=== PATIENT | male | born 1950 | race Caucasian/White ===

== ENCOUNTER 2020-04-27 01:29 | Outpatient (CLI) | payer MEDICARE, SELFPAY ==
[2020-04-27 16:17] LABS: SARS-CoV-2 RNA PCR Negative
== END 2020-04-27 01:30 | disposition home or self-care (01) ==
LOC: ANHCOVIDDT 01:29
PROVIDERS: PCP Internal Medicine; Visit Provider Internal Medicine Gastroenterology
DX: Z01.812 Encounter for preprocedural laboratory examination (principal); Z11.59 Encounter for screening for other viral diseases
CPT/HCPCS: 87635; C9803; U0003

== ENCOUNTER 2020-04-29 01:13 | Day surgery (SDC) | payer MEDICARE, SELFPAY ==
[2020-04-20 15:13] VITALS: BMI 22.7
[2020-04-29 07:17] VITALS: BP 118/73; PULSE 73; RESP 20; TEMP 36.6; O2SAT 99
[2020-04-29] MEDS: LACTATED RINGERS 1,000 ML 150 ML IV CONT (07:30)
--- NOTE | 2020-04-29 08:26 | P.CONGI_ITS ---
Assessment and Plan Assessment and plan (1) Epigastric abdominal pain: Code(s): R10.13 - Epigastric pain Status: Acute Assessment and Plan: Patient with epigastric pain. Has been poorly responsive to outpatient management. Plan is for EGD today to assess more thoroughly. Continue outpatient Pepcid until this can be accomplished. GI Consult Note Consult date/time: 04/29/20 08:26 HPI: Robbie Cervantes is a 70 year old male seen in evaluation at the request of Dr. Julio César Avilez. Patient reports epigastric pain for at least the last 1- 1/2 months. He recently has tried Pepcid with some improvement of symptoms. He describes pain is aching. It somewhat improves after eating. Denies any weight loss or bleeding. Patient presents today for endoscopic evaluation of pain. Past medical history is significant for abdominal aortic aneurysm repair. Family history is noncontributory. Review of Systems Review of Systems: All systems reviewed & are unremarkable except as noted in HPI and below PMFSH Past Medical History Medical History (Updated 04/29/20 @ 08:35 by Obie Mejia MD) Hyperlipidemia Hypertension Peripheral vascular disease Meds Home Medications and Allergies Home Medications Medication Instructions Recorded Confirmed Type aspirin [Adult Low Dose Aspirin] 81 mg PO DAILY 04/20/20 04/20/20 History atorvastatin 40 mg PO DAILY 04/20/20 04/20/20 History lisinopril-hydrochlorothiazide 1 tablet PO DAILY 04/20/20 04/20/20 History Allergies Allergy/AdvReac Type Severity Reaction Status Date / Time No Known Allergies Allergy Unknown Verified 04/29/20 07:16 Vital Signs Vital Signs - 24 hr 04/29/20 07:17 Temperature 97.8 F Pulse Rate 73 Respiratory Rate 20 Blood Pressure 118/73 Pulse Oximetry 99 Exam Narrative: Exam Narrative: Physical exam reveals patient to be alert. Vital signs stable. HEENT exam unremarkable. Lungs are clear to auscultation and to percussion. Heart is without murmur or extra sounds. Abdominal exam bowel sounds are present soft nontender with no organomegaly. Digital external rectal exam normal.
--- NOTE | 2020-04-29 08:28 | P.PNAN_ITS ---
Anes - Initial Pre Proc Eval Procedure: Operation Date: 04/29/20 08:30 Proposed Procedures p Esophagogastroduodenoscopy - Obie Mejia MD Date/Time: 04/29/20 08:28 Surgeon: Obie Mejia MD Pre Op Diagnosis: Epigastric Pain Patient Data Age: 70 Gender: M Height: 5 ft 10 in Weight: 70.9 kg Last Vital Signs Temp 97.8 F 04/29/20 07:17 Pulse 73 04/29/20 07:17 Resp 20 04/29/20 07:17 BP 118/73 04/29/20 07:17 Pulse Ox 99 04/29/20 07:17 Allergies Allergy/AdvReac Type Severity Reaction Status Date / Time No Known Allergies Allergy Unknown Verified 04/29/20 07:16 Home Medications Medication Instructions Recorded Confirmed Type aspirin [Adult Low Dose Aspirin] 81 mg PO DAILY 04/20/20 04/20/20 History atorvastatin 40 mg PO DAILY 04/20/20 04/20/20 History lisinopril-hydrochlorothiazide 1 tablet PO DAILY 04/20/20 04/20/20 History Patient hx anesthesia problems: none Family hx anesthesia problems: none [facility] Past Medical History Medical History (Updated 04/29/20 @ 08:28 by Mc Myers MD) Hyperlipidemia Hypertension Peripheral vascular disease Anes - Eval Final PreProcedure Day of Procedure 04/29/20 08:28 Patient weight: normal Heart: regular rate and rhythm Lungs: clear to auscultation Airway: Mallampati scale class II Neurological: alert and oriented Last oral intake: >/= 8 hours ASA classification: III Emergent: no Anesthetic plan: proceed Anesthesia type and monitoring: general GIVS and standard monitoring Informed Consent: The patient's anesthetic plan and its attendant risks and benefits were discussed with the patient/family/POA. Questions were solicited and answers provided to the satisfaction of the patient/family/POA.
[2020-04-29] MEDS: BENZOCAINE (*SP) 60 ML SPRAY CAN (HURRICAINE) 1 SPRAY MUCOUS MEM (08:37)
[2020-04-29] MEDS: SIMETHICONE ORAL SUSPENSION 20 MG/0.3 ML 30 ML BOTTLE 0.6 ML IRRIGATION (08:39)
[2020-04-29 08:45] VITALS: BP 106/62; PULSE 76; RESP 17; O2SAT 97
[2020-04-29 08:55] VITALS: BP 104/62; PULSE 68; RESP 19; O2SAT 96
[2020-04-29 09:05] VITALS: BP 125/64; PULSE 65; RESP 15; O2SAT 96
--- NOTE | 2020-04-29 09:24 | SUR.PHASEII ---
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
== END 2020-04-29 09:31 | disposition home or self-care (01) ==
PROVIDERS: PCP Internal Medicine; Visit Provider Internal Medicine Gastroenterology
PROC: 0DJ08ZZ Inspection of Upper Intestinal Tract, Via Natural or Artificial Opening Endoscopic (ICD-10-PCS; CPT 43235; principal; 2020-04-29 08:30)
DX: K29.60 Other gastritis without bleeding (principal); Z98.84 Bariatric surgery status; I10 Essential (primary) hypertension; E78.5 Hyperlipidemia, unspecified; I73.9 Peripheral vascular disease, unspecified; Z79.82 Long term (current) use of aspirin
CPT/HCPCS: 43239; 87635; 88305; 88342; C9803; J7120; U0003

== ENCOUNTER 2023-09-14 14:20 | Emergency (ER) | payer MEDICARE, SELFPAY ==
--- NOTE | ~2023-09-14 | XR_ITS ---
EXAMINATION: XR chest 2V Exam Date/Time: 09/14/2023 17:50 [employer] HISTORY: palpitations, fatigue Comparison: 04/24/2006. RESULT: Lines, tubes, and devices: Surgical clips over the right neck. Interbody devices in the lower cervic al spine. Lungs and pleura: Clear. Cardiomediastinal silhouette: Stable. Other: No acute osseous or upper abdominal finding. IMPRESSION: No acute cardiopulmonary process. Reviewed, dictated and finalized at location [facility]
[2023-09-14 14:25] VITALS: BP 145/74; PULSE 127; RESP 16; TEMP 36.6; O2SAT 99
--- NOTE | 2023-09-14 14:25 | ECG_ITS ---
Measurements Intervals [place] Rate: 124 P: 57 [place]: 176 QRS: 26 QRSD: 79 T: 77 QT: 333 QTc: 479 Interpretive Statements SINUS TACHYCARDIA LOW-VOLTAGE MINIMAL ST DEPRESSION [0.025+ mV ST DEPRESSION] ABNORMAL RHYTHM ECG NO PREVIOUS ECG AVAILABLE FOR COMPARISON Electronically Signed On 09-14-2023 18:05:54 ASSESSMENT CONSULTANT by Julio César Eason M.D.
[2023-09-14 15:49] VITALS: PULSE 142
[2023-09-14 16:01] VITALS: BP 142/70; PULSE 114; RESP 11; O2SAT 100
[2023-09-14] MEDS: SODIUM CHLORIDE 0.9% IV 1,000 ML 999 ML IV CONT (16:24)
[2023-09-14 16:35] LABS: Basophils Percent Auto 0.3 % (0.2-1.2); Eosinophils Percent Auto 0.2 % (0-4.4); Hematocrit 34.1 % (42.0-52.0); Hemoglobin 11.8 g/dL (14.0-18.0); Immature Granulocyte Absolute 0.09 K/mm3 (0.00-0.031); Immature Granulocyte Percent A 0.9 % (0-0.5); Lymphocytes Absolute Auto 1.09 K/mm3 (0.9-3.2); Lymphocytes Percent Auto 10.8 % (18.3-44.2); Mean Corpuscular HGB Conc 34.6 g/dl (32-36); Mean Corpuscular Hemoglobin 34.7 pg (26-34); Mean Corpuscular Volume 100.3 fl (80-100); Mean Platelet Volume 10.5 fl (7.4-10.4); Monocytes Absolute Auto 1.1 K/mm3 (0.1-0.6); Monocytes Percent Auto 10.8 % (2.6-8.5); Neutrophils Absolute Auto 7.8 K/mm3 (1.3-6.7); Platelet Count Result 162 k/mm3 (150-375); Red Cell Distribution Width 15.8 % (11.5-14.5); White Blood Count 10.1 K/mm3 (4.5-10.0)
[2023-09-14 16:47] LABS: INR 1.1; Prothrombin Time 14.9 Seconds (11.1-14.7)
[2023-09-14 16:48] LABS: Partial Thromboplastin Time 40.3 SECONDS (22.3-36.8)
[2023-09-14 17:13] LABS: Alanine Aminotransferase 44 U/L (6-50); Albumin Level 4.1 g/dL (3.5-5.1); Alkaline Phosphatase 208 U/L (38-126); Anion Gap 16 mmol/L (8-16); Aspartate Amino Transferase 94 U/L (17-59); Bilirubin,Total 4.1 mg/dL (0.2-1.3); Blood Urea Nitrogen 11 mg/dL (9-20); Calcium 9.1 mg/dL (8.4-10.2); Carbon Dioxide 27 mmol/L (22-30); Chloride 83 mmol/L (98-107); Estimated CRCL calculation 66 ml/min; Estimated Glomerular Filt Rate > 60; Glucose 226 mg/dL (65-110); Magnesium 1.9 mg/dL (1.6-2.3); Potassium 3.2 mmol/L (3.4-5.0); Sodium 126 mmol/L (137-145)
--- NOTE | 2023-09-14 17:45 | ED.ARRPALP ---
HPI - Arrhythmia/Palpitations General Chief Complaint: Arrhythmia/Palpitations Stated Complaint: elevated heart rate Time Seen by Provider: 09/14/23 15:47 History of Present Illness HPI narrative: Patient is a 73-year-old male who presents to the ER with an elevated heart rate. Reports that was in the 140s. He was at his hepatology follow-up appointment today when it was noticed. They estimate go to the ER to be evaluated and he chose to leave [facility] come here. He is having no dizziness. No chest pain or chest pressure. No new shortness of breath. He has been on diuretics for the last month to decrease the fluid in his legs and abdomen. He has had to have multiple paracentesis procedures to remove fluid. He takes 40 of Lasix daily and 100 mg of spironolactone daily. Related Data Home Medications Medication Instructions Recorded Confirmed finasteride 5 mg tablet 5 mg PO DAILY 09/14/23 09/14/23 furosemide 20 mg tablet 20 mg PO DAILY 09/14/23 09/14/23 lactulose 10 gram/15 mL oral 10 ml PO DAILY 09/14/23 09/14/23 solution magnesium oxide 400 mg PO DAILY 09/14/23 09/14/23 spironolactone 100 mg tablet 100 mg PO DAILY 09/14/23 09/14/23 Allergies Allergy/AdvReac Type Severity Reaction Status Date / Time No Known Allergies Allergy Unknown Verified 09/14/23 15:50 Review of Systems Review of Systems: All systems reviewed & are unremarkable except as noted in HPI and below Constitutional: Constitutional: Reports no additional constitutional complaints ENT: Reports system reviewed and no additional complaints, except as documented Cardiovascular: Cardiovascular: Denies chest pain, Reports rapid heart rate and Denies radiating jaw, neck or arm pain Respiratory: Respiratory: Reports no additional respiratory complaints Gastrointestinal: Gastrointestinal: Reports no additional gastrointestinal complaints Musculoskeletal: Musculoskeletal: Reports no additional musculoskeletal complaints PMFSH Past Medical History Medical History (Updated 09/14/23 @ 19:37 by Rambo Steinberg MD) Cirrhosis of liver Hyperlipidemia Hypertension Peripheral vascular disease Surgical History Surgical History (Updated 09/14/23 @ 17:47 by Rambo Steinberg MD) No pertinent past surgical history Exam Narrative: GENERAL: Well-appearing, well-nourished, and in no acute distress. HEAD: Normocephalic, atraumatic. ENT: Mucous membranes moist. CHEST: Clear to auscultation. No respiratory distress. HEART: Tachycardic irregular. Normal peripheral pulses. ABDOMEN: Soft, nontender, nondistended. EXTREMITIES: Normal range of motion. No edema. SKIN: Warm, dry, no rash. NEURO: Alert and oriented x3. PSYCH: Normal mood and affect. Course Course Emergency Course: Patient's tachycardia improved with IV fluid. Suspect he is dry from his increase in diuretics. Recommend he withhold his diuretics tomorrow given low potassium and in sodium. Reports his last potassium was 3.7 and last sodium was 133 on 09/01/2023. His last total bilirubin was 3.8. Family will also contact his liver care team through [facility]. Vital Signs Vital signs: Vital Signs Temperature 98 F 09/14/23 14:25 Pulse Rate 127 H 09/14/23 14:25 Respiratory Rate 16 09/14/23 14:25 Blood Pressure 145/74 H 09/14/23 14:25 Pulse Oximetry 99 09/14/23 14:25 Oxygen Delivery Room Air 09/14/23 14:25 Temperature 98 F 09/14/23 14:25 Pulse Rate 104 H 09/14/23 19:42 Respiratory Rate 16 09/14/23 19:42 Blood Pressure 124/66 09/14/23 19:42 Pulse Oximetry 100 09/14/23 19:42 Oxygen Delivery Room Air 09/14/23 14:25 MDM - Arrhythmia/Palpitations Lab Data 09/14/23 16:25 09/14/23 16:25 Labs: Lab Results 09/14/23 Range/Units 16:25 WBC 10.1 H (4.5-10.0) K/mm3 RBC 3.40 L (4.6-6.20) M/mm3 Hgb 11.8 L (14.0-18.0) g/dL Hct 34.1 L (42.0-52.0) % MCV 100.3 H (80-100) fl MCH
[2023-09-14 19:27] VITALS: BP 132/72; PULSE 104; RESP 16; O2SAT 100
[2023-09-14 19:42] VITALS: BP 124/66; PULSE 104; RESP 16; O2SAT 100
== END 2023-09-14 19:43 | disposition home or self-care (01) ==
PROVIDERS: Emergency Provider Emergency Medicine; PCP Internal Medicine
DX: R00.0 Tachycardia, unspecified (principal); I10 Essential (primary) hypertension; I73.9 Peripheral vascular disease, unspecified; E78.5 Hyperlipidemia, unspecified; K74.60 Unspecified cirrhosis of liver
CPT/HCPCS: 36415; 71046; 80053; 83735; 85025; 85610; 85730; 93005; 96360; 99283; J7030

== ENCOUNTER 2024-07-30 18:56 | Inpatient (IN) | payer MEDICARE, OTHER, SELFPAY ==
[2024-07-30] VITALS (28 sets, daily range): BP systolic 95–122; BP diastolic 50–95; PULSE 71–83; RESP 8–17; TEMP 36.4–36.7; O2SAT 100
--- NOTE | ~2024-07-30 | XR_ITS ---
HISTORY: post reduction COMPARISON: Previous imaging performed approximately 20 minutes earlier TECHNIQUE: 2 views of the right ankle were performed FINDINGS: Post reduction imaging demonstrate a trimalleolar fracture with markedly improved alignment post redu ction. Overlying casting material is present. IMPRESSION: Improved alignment post reduction, as detailed. Reviewed, dictated and finalized at location A. NOGRAPH OPERATOR
--- NOTE | ~2024-07-30 | XR_ITS ---
HISTORY: injury COMPARISON: None TECHNIQUE: 2 views of the right ankle were performed FINDINGS: Acute comminuted complex fracture/dislocation of the distal tibia and fibula with anterior and medial dislocation of multiple fracture fragments. Multiple surgical clips identified along the medial margin of the soft tissues. IMPRESSION: As above. Reviewed, dictated and finalized at location A. ALT PATCHER IMPRESSION: As above.
--- NOTE | ~2024-07-30 | CT_ITS ---
Clinical indication:Ankle fracture COMPARISON:Examination is compared with multiple plain film evaluations of the right ankle TECHNIQUE: Multiple contiguous axial images of the right ankle were performed without the administrat ion of intravenous contrast. DLP: 457 mGy-cm FINDINGS: Acute fractures involving both the medial malleolus of the distal tibia as well as the lateral margin of the distal tibia. Acute fracture is also present within the distal fibula (the lateral malleolus). In addition, acute fracture of the posterior margin of the distal tibia is present consistent with a trimalleolar fracture. A heterogeneous appearance of the bone mineralization is also present for which clinical correlation is needed as to possible systemic association. No additional fractures are appreciated. Significant soft tissue swelling is also noted. IMPRESSION: Trimalleolar fracture of the right ankle, as detailed above. Reviewed, dictated and finalized at location A. L CLEANER HAND
--- NOTE | ~2024-07-30 | XR_ITS ---
EXAMINATION: XR surgery orthopedic DATE: 08/01/2024 13:12 INDICATION: Trimalleolar fracture of right ankle. TECHNIQUE: 7 intraoperative fluoroscopic views of right ankle were obtained. I wasn't present. Fluoro scopy exposure time was 1 minute 32 seconds. COMPARISON: CT 07/30/2024 FINDINGS: There is a fracture of medial malleolus in anatomic alignment status post open reduction in ternal fixation with 2 lag screws. There is a fracture of distal fibula in near-anatomic alignment st atus post open reduction internal fixation with retrograde intramedullary amber and multiple screws inc luding a syndesmotic screw. There is a fracture of posterior malleolus with 2 mm step-off at the phyllis cular surface. IMPRESSION: 1. Trimalleolar ankle fracture status post open reduction internal fixation. Reviewed, dictated and finalized at location A. TRIC ORGAN INSPECTOR AND REPAIRER
--- NOTE | ~2024-07-30 | XR_ITS ---
CHEST RADIOGRAPH CLINICAL HISTORY: pre-op . COMPARISON: 09/14/2023 TECHNIQUE: Single portable view of the chest. FINDINGS The cardiomediastinal silhouette is unremarkable. The lungs are clear. Visualized osseous structures and soft tissues are unremarkable. IMPRESSION: No focal infiltrate or effusion. Reviewed, dictated and finalized at location A. LE TACKER
[2024-07-30] MEDS: fentaNYL CITRATE INJ (*CRX) 100 MCG/2 ML VIAL 50 MCG IV PUSH (19:06)
[2024-07-30] MEDS: PROPOFOL IV EMULSION 200 MG/20 ML VIAL 60 MG IV PUSH (19:13)
[2024-07-30] MEDS: SODIUM CHLORIDE 0.9% IV 1,000 ML 1000 ML (19:15)
--- NOTE | 2024-07-30 19:21 | ED_ITS ---
HPI - General Adult General Chief complaint: Extremity Injury, Lower Stated complaint: slip in yard, obvious deformity of ankle History of Present Illness HPI narrative: 74-year-old male presenting to the emergency department for evaluation for right ankle injury. Patient states he was walking in the yd when he rolled his right ankle resulting in a deformity. Patient denies striking his head denies loss consciousness. Patient's only complaint is right ankle pain. Patient does have a deformity of the right ankle with tenting of the medial malleolus. No break in the skin. Related Data Home Medications Medication Instructions Recorded Confirmed finasteride 5 mg tablet 5 mg PO DAILY 09/14/23 07/30/24 furosemide 20 mg tablet 40 mg PO DAILY 09/14/23 07/30/24 lactulose 10 gram/15 mL oral 10 ml PO DAILY 09/14/23 07/30/24 solution magnesium oxide 400 mg PO DAILY 09/14/23 07/30/24 spironolactone 100 mg tablet 100 mg PO DAILY 09/14/23 07/30/24 albuterol sulfate 90 mcg/actuation 2 puff inhalation PRN PRN 07/30/24 07/30/24 aerosol inhaler SOB/Wheezing cetirizine 10 mg tablet (Zyrtec) 10 mg PO HS 07/30/24 07/30/24 potassium chloride 20 mEq 40 meq PO DAILY 07/30/24 07/30/24 tablet,extended release sertraline 50 mg tablet 50 mg PO DAILY 07/30/24 07/30/24 Allergies Allergy/AdvReac Type Severity Reaction Status Date / Time No Known Allergies Allergy Unknown Verified 07/30/24 20:49 Review of Systems Review of Systems: All systems reviewed & are unremarkable except as noted in HPI and below [facility] Past Medical History Medical History (Updated 07/30/24 @ 21:37 by Bartolo Rosenthal MD) Cirrhosis of liver Hyperlipidemia Hypertension Peripheral vascular disease Surgical History Surgical History No pertinent past surgical history Exam Narrative: APPEARANCE: Uncomfortable appearing HEAD: normocephalic, atraumatic. EYES: PERRLA/EOMI, conjunctivae clear. NOSE: Normal no drainage EARS:TMS clear with good light reflex. THROAT: Pharynx clear, no exudate. NECK: Supple. No adenopathy, no masses. RESPIRATORY: Airway patent, respirations nonlabored. Clear to auscultation bilaterally, no rales, rhonchi, wheezing. CARDIOVASCULAR: Regular rate and rhythm without murmurs rubs or gallops. ABDOMINAL: Soft, nontender, nondistended, normal bowel sounds MUSCULOSKELETAL: Right ankle deformity with pulses intact NEURO: Alert. Cranial nerves II through XII intact. Good gait. Good coordination Course Vital Signs Vital signs: Vital Signs Temperature 97.5 F L 07/30/24 18:57 Pulse Rate 77 07/30/24 18:57 Respiratory Rate 17 07/30/24 18:57 Blood Pressure 105/54 L 07/30/24 18:57 Pulse Oximetry 100 07/30/24 18:57 Oxygen Delivery Room Air 07/30/24 18:57 Temperature 98.1 F 07/30/24 19:28 Pulse Rate 81 07/30/24 21:26 Respiratory Rate 14 07/30/24 21:26 Blood Pressure 118/54 L 07/30/24 20:41 Pulse Oximetry 100 07/30/24 21:26 Oxygen Delivery Nasal Cannula 07/30/24 19:28 Oxygen Flow Rate 3 07/30/24 19:28 Procedures Orthopedic Joint Reduction Joint #1: Orthopedic Joint Reduction Time: 19:24 Time Out Performed: Yes Side: right Joint Reduction Location: ankle Analgesia: procedural sedation Pre-Procedure Neuro Vascular Exam: normal Shoulder Technique Used (if applicable): traction/counter-traction Technique used: traction/counter-traction Post-reduction neuro exam: intact Post-reduction vascular: intact Post Reduction X-Ray Obtained: Yes Post Reduction X-Ray Results: reduced Splint Applied: Yes Patient Tolerated Procedure: well and no complications Procedural Sedation Procedural Sedation #1: Procedural Sedation Time: 19:23 Presedation Evaluation: APPEARANCE: Well appearing, no pain, no distress, well-nourished. HEAD: normocephalic, atraumatic. EYES: PERRLA/EOMI, conjunctivae clear. NOSE: Normal no drainage EARS:TMS clear with good light reflex. THROAT: Pharynx clear, no exudate. NECK: Supple. No adenopathy, no masses. RESPIRATORY: Airway patent, respirations nonlabored. Clear to auscultation bilaterally, no rales, rhonchi, wheezing. CARDIOVASCULAR: Regular rate and rhythm without murmurs rubs or gallops. ABDOMINAL: Soft, nontender, nondistended, normal bowel sounds MUSCULOSKELETAL: Right ankle deformity Provider Performed: sedation and procedure Informed Consent Obtained: yes Equipment in Room: bag and mask, capnography, quality assurance monitor final, crash cart, oxygen, pulse oximeter and suction Plan for Sedation: moderate sedation ASA Class: II Mallampati Classification: class I NPO Status: last solid food (hours ago) Explanation to Patient/Family: Risk/Benefits/Alternatives Pt. Educated on Procedural Sedation: Yes Re-evaluated immediately prior: Yes Preparation: quality assurance monitor final applied, pulse oximeter, capnometry used, supplemental O2 applied, suction/airway equipment at bedside and IV secured Fentanyl: IV Fentanyl dose (mcg): 50 IV Propofol dose (mg): 60 Patient Tolerated Procedure: well and no complications Complications: hypoxia Interventions: oxygen applied Total Sedation Time (min): 10 Medical Decision Making MDM Narrative Medical decision making narrative: [age] old male presents emergency department for evaluation for right ankle pain after having a fall. Patient did have a significant dislocation of the right ankle this was reduced. Patient does not have a trimalleolar fracture. Patient's ankle was splinted. Patient would not be a good candidate for discharge to home. I discussed the case with Orthopedics and Orthopedics was consulted. Discussed case with hospitalist patient was accepted for admission. Patient family were updated on the results of the workup plan for admission anticipated treatment plan. All questions concerns were addressed. Differential Diagnosis Differential Diagnosis: Ankle dislocation, ankle fracture, foot fracture Vital Signs Vital Signs: Vital Signs Temperature 97.5 F L 07/30/24 18:57 Pulse Rate 77 07/30/24 18:57 Respiratory Rate 17 07/30/24 18:57 Blood Pressure 105/54 L 07/30/24 18:57 Pulse Oximetry 100 07/30/24 18:57 Oxygen Delivery Room Air 07/30/24 18:57 Temperature 98.1 F 07/30/24 19:28 Pulse Rate 81 07/30/24 21:26 Respiratory Rate 14 07/30/24 21:26 Blood Pressure 118/54 L 07/30/24 20:41 Pulse Oximetry 100 07/30/24 21:26 Oxygen Delivery Nasal Cannula 07/30/24 19:28 Oxygen Flow Rate 3 07/30/24 19:28 Lab Data Lab results reviewed: Yes I reviewed the patient's lab results. 07/30/24 19:42 07/30/24 19:42 Labs: Lab Results 07/30/24 Range/Units 19:42 WBC 4.0 L (4.5-10.0) K/mm3 RBC 3.44 L (4.6-6.20) M/mm3 Hgb 11.2 L (14.0-18.0) g/dL Hct 32.4 L (42.0-52.0) % MCV 94.2 (80-100) fl MCH 32.6 (26-34) pg MCHC 34.6 (32-36) g/dl RDW 16.2 H (11.5-14.5) % Plt Count 98 L (150-375) k/mm3 MPV 10.4 (7.4-10.4) fl Immature Gran % (Auto) Not Reportable Neut % (Auto) Not Reportable Lymph % (Auto) Not Reportable [place] % (Auto) Not Reportable Eos % (Auto) Not Reportable Baso % (Auto) Not Reportable Lymph # (Auto) Not Reportable [place] # (Auto) Not Reportable Eos # (Auto) Not Reportable Baso # (Auto) Not Reportable Abs Immat Gran (auto) Not Reportable Absolute Neuts (auto) Not Reportable Absolute Nucleated RBC Not Reportable Total Counted 100 Neutrophils % (Manual) 57 (46-73) % Band Neutrophils % 2 (0-6) % Lymphocytes % (Manual) 31.0 (18-44) % Monocytes % (Manual) 8 (3-9) % Eosinophils % (Manual) 2 (0-4) % Nucleated RBC % Not Reportable Abs Neuts (Manual) 2.36 (1.3-6.7) K/mm3 Abs Lymphs (Manual) 1.24 (1.1-4.5) K/mm3 Abs Monocytes (Manual) 0.32 (0.1-0.90) K/mm3 Absolute Eos (Manual) 0.08 (0.02-0.50) K/mm3 Platelet Estimate Decreased (Adequate) % Immature Plt Fraction 6.2 (0.9-11.2) % Schistocytes None seen PT 16.3 H (11.1-14.7) Seconds INR 1.3 APTT 38.4 H (22.3-36.8) Seconds Sodium 131 L (137-145) mmol/L Potassium 3.1 L (3.4-5.0) mmol/L Chloride 87 L (98-107) mmol/L Carbon Dioxide 33 H (22-30) mmol/L Anion Gap 11 (4-12) mmol/L BUN 7 L (9-20) mg/dL Creatinine 1.00 (0.7-1.3) mg/dL Estim Creat Clear Calc 52 ml/min Estimated GFR > 60 (59 - ) Glucose 166 H (65-110) mg/dL Calcium 8.3 L (8.4-10.2) mg/dL Total Bilirubin 1.7 H (0.2-1.3) mg/dL AST 151 H (17-59) U/L ALT 44 (6-50) U/L Alkaline Phosphatase 282 H (38-126) U/L Total Protein 7.0 (6.3-8.2) g/dL Albumin 3.4 L (3.5-5.1) g/dL Ethyl Alcohol 289 (<10) mg/dL Imaging Data Radiologist's impression: Impressions Ankle X-Ray 07/30/24 20:16 IMPRESSION: As above. Ankle X-Ray 07/30/24 20:25 IMPRESSION: Improved alignment post reduction, as detailed. Chest X-Ray 07/30/24 20:27 IMPRESSION: No focal infiltrate or effusion. ECG Data EKG #1: EKG Interpretation: normal rate, sinus rhythm, no ectopy, non-specific ST changes, no ST changes, normal QT and NL axis Discharge Plan Discharge Clinical Impression: Closed trimalleolar fracture of ankle, Closed dislocation of ankle Patient Disposition: Still a Patient Condition: Serious
--- NOTE | 2024-07-30 19:27 | ECG_ITS ---
Test Date: 2024-07-30 20:39:46 Measurements Intervals [place] Rate: 74 P: 82 MA: 169 QRS: 33 QRSD: 97 T: 78 QT: 426 QTc: 474 Interpretive Statements SINUS RHYTHM BORDERLINE ST-T WAVE ABNORMALITY- HIGH LATERAL LEADS BASELINE ARTIFACT- I, II, III, AVR, AVL, AVF, V1-V6 BORDERLINE ECG No previous ECG available for comparison Electronically Signed On 07-30-2024 22:07:58 CLERK RATING by Jeffrey Saldana D.O.
[2024-07-30 19:50] LABS: Hematocrit 32.4 % (42.0-52.0); Hemoglobin 11.2 g/dL (14.0-18.0); Immature Platelet Fraction Pct 6.2 % (0.9-11.2); Mean Corpuscular HGB Conc 34.6 g/dl (32-36); Mean Corpuscular Hemoglobin 32.6 pg (26-34); Mean Corpuscular Volume 94.2 fl (80-100); Mean Platelet Volume 10.4 fl (7.4-10.4); Platelet Count Result 98 k/mm3 (150-375); Red Blood Count 3.44 M/mm3 (4.6-6.20); Red Cell Distribution Width 16.2 % (11.5-14.5)
[2024-07-30 19:58] LABS: Alanine Aminotransferase 44 U/L (6-50); Albumin Level 3.4 g/dL (3.5-5.1); Alkaline Phosphatase 282 U/L (38-126); Anion Gap 11 mmol/L (4-12); Aspartate Amino Transferase 151 U/L (17-59); Bilirubin,Total 1.7 mg/dL (0.2-1.3); Blood Urea Nitrogen 7 mg/dL (9-20); Calcium 8.3 mg/dL (8.4-10.2); Carbon Dioxide 33 mmol/L (22-30); Chloride 87 mmol/L (98-107); Estimated CRCL calculation 52 ml/min; Estimated Glomerular Filt Rate > 60; Glucose 166 mg/dL (65-110); Potassium 3.1 mmol/L (3.4-5.0); Sodium 131 mmol/L (137-145)
[2024-07-30 19:59] LABS: INR 1.3; Prothrombin Time 16.3 Seconds (11.1-14.7)
[2024-07-30 20:00] LABS: Ethanol 289 mg/dL (<10); Partial Thromboplastin Time 38.4 Seconds (22.3-36.8)
[2024-07-30 20:03] LABS: Band Neutrophils Percent 2 % (0-6); Eosinophils Absolute Manual 0.08 K/mm3 (0.02-0.50); Eosinophils Percent Manual 2 % (0-4); Lymphocytes Absolute Manual 1.24 K/mm3 (1.1-4.5); Monocytes Absolute Manual 0.32 K/mm3 (0.1-0.90); Monocytes Percent Manual 8 % (3-9); Neutrophils Absolute Manual 2.36 K/mm3 (1.3-6.7); Neutrophils Percent Manual 57 % (46-73); Platelet Estimate Decreased (Adequate); Schistocytes None Seen; Total Cells Counted 100
--- NOTE | 2024-07-30 20:44 | PM.IMHP ---
H&P: HPI History of Present Illness Date/Time: 07/30/24 20:44 Chief Complaint: Fall Narrative: This is a 74-year-old male with past medical history significant for COPD, cirrhosis of the liver, diabetes, hypertension, dyslipidemia. Patient was brought to the emergency room for evaluation due to fall unable to bear weight on the right leg, right ankle pain. Patient denies loss of consciousness. Preliminary workup was significant for ankle fracture. Patient has been admitted for further evaluation management and treatment. CHEST RADIOGRAPH CLINICAL HISTORY: pre-op . COMPARISON: 09/14/2023 TECHNIQUE: Single portable view of the chest. FINDINGS The cardiomediastinal silhouette is unremarkable. The lungs are clear. Visualized osseous structures and soft tissues are unremarkable. IMPRESSION: No focal infiltrate or effusion. HISTORY: injury COMPARISON: None TECHNIQUE: 2 views of the right ankle were performed FINDINGS: Acute comminuted complex fracture/dislocation of the distal tibia and fibula with anterior and medial dislocation of multiple fracture fragments. Multiple surgical clips identified along the medial margin of the soft tissues. IMPRESSION: As above. Review of Systems Review of Systems: fall, right ankle pain. [facility] Past Medical History Medical History (Updated 07/30/24 @ 21:51 by Sidney Patel MD) Cirrhosis of liver COPD (chronic obstructive pulmonary disease) Diabetes Hyperlipidemia Hypertension Peripheral vascular disease Surgical History Surgical History No pertinent past surgical history Social History Social History Smoking packs per day: 2 Smoking cigarettes per day: 40.0 Years smoked: 52 Smoking pack-years: 104.00 Smoking status: Former smoker Alcohol intake: former Do You Feel Safe in your Home?: Yes Lack of Transportation: No Lack of Food: Never True Current Housing: I Have Housing Concerned About Future Housing: No Difficulty Paying Gas/Electric Bills: No Difficulty Paying for Meds: No Currently Unemployed: No Education: High School Diploma/GED Difficulty w/ Childcare or Family Care: No Spiritual care concerns: No Meds Home Medications and Allergies Home Medications Medication Instructions Recorded Confirmed Type finasteride 5 mg tablet 5 mg PO DAILY 09/14/23 07/30/24 History furosemide 20 mg tablet 40 mg PO DAILY 09/14/23 07/30/24 History lactulose 10 gram/15 mL oral 30 ml PO DAILY 09/14/23 07/30/24 History solution magnesium oxide 400 mg PO DAILY 09/14/23 07/30/24 History spironolactone 100 mg tablet 100 mg PO DAILY 09/14/23 07/30/24 History albuterol sulfate 90 mcg/actuation 2 puff inhalation PRN PRN 07/30/24 07/30/24 History aerosol inhaler SOB/Wheezing cetirizine 10 mg tablet (Zyrtec) 10 mg PO HS 07/30/24 07/30/24 History potassium chloride 20 mEq 40 meq PO DAILY 07/30/24 07/30/24 History tablet,extended release sertraline 50 mg tablet 50 mg PO DAILY 07/30/24 07/30/24 History Allergies Allergy/AdvReac Type Severity Reaction Status Date / Time No Known Allergies Allergy Unknown Verified 07/30/24 20:49 Vital Signs Vital Signs - 24 hr 07/30/24 18:57 07/30/24 18:59 07/30/24 19:16 Temperature 97.5 F L 97.5 F L Pulse Rate 77 Pulse Rate [Apical] Respiratory Rate 17 16 Blood Pressure 105/54 L Blood Pressure [Left Arm] 101/57 L Blood Pressure [Right Arm] Pulse Oximetry 100 100 100 Oxygen Delivery Room Air Nasal Cannula Nasal Cannula Oxygen Flow Rate 3 3 07/30/24 19:13 07/30/24 19:20 07/30/24 19:25 Temperature 97.5 F L 97.5 F L 98.1 F Pulse Rate Pulse Rate [Apical] 75 71 79 Respiratory Rate 16 11 L 15 Blood Pressure Blood Pressure [Left Arm] 95/54 L Blood Pressure [Right Arm] 105/95 H 102/55 L Pulse Oximetry 100 100 100 Oxygen Delivery Room Air Nasal Cannula Nasal Cannula Oxygen Flow Rate 3 3 07/30/24 19:28 07/30/24 19:06 07/30/24 19:12 Temperature 98.1 F Pulse Rate 83 78 Pulse Rate [Apical] 74 Respiratory Rate 13 12 12 Blood Pressure 99/69 L Blood Pressure [Left Arm] Blood Pressure [Right Arm] 102/57 L Pulse Oximetry 100 100 100 Oxygen Delivery Nasal Cannula Oxygen Flow Rate 3 07/30/24 19:15 07/30/24 19:24 07/30/24 19:26 Temperature Pulse Rate 74 76 76 Pulse Rate [Apical] Respiratory Rate 14 13 16 Blood Pressure 102/55 L 95/54 L Blood Pressure [Left Arm] Blood Pressure [Right Arm] Pulse Oximetry 100 100 100 Oxygen Delivery Oxygen Flow Rate 07/30/24 19:30 07/30/24 19:31 07/30/24 19:41 Temperature Pulse Rate 76 72 74 Pulse Rate [Apical] Respiratory Rate 14 13 13 Blood Pressure 102/57 L 108/55 L Blood Pressure [Left Arm] Blood Pressure [Right Arm] Pulse Oximetry 100 100 100 Oxygen Delivery Oxygen Flow Rate Exam Narrative: Patient is laying in a stretcher Const: General: comfortable, no acute distress, well developed, alert, awake and average body habitus Nutritional Appearance: average body habitus Orientation/consciousness: patient oriented x3 HENMT: Head: normal to inspection, normocephalic and atraumatic Ears: hearing grossly normal bilaterally Face/Nose/Sinus: normal facial exam Face and sinus: normal facial exam Eyes: General: appearance normal, both eyes and all related structures Pupils: Equal, round and reactive pupils present EOM: EOMs intact bilaterally Neck: Neck: full ROM, no lymphadenopathy and no JVD Thyroid: thyroid normal Lymphatic: no lymphadenopathy noted Resp: Effort & Inspection: normal respiratory effort and able to speak in complete sentences Auscultation: clear to auscultation bilaterally Cardio: Jugular venous distension: no JVD Rate: regular rate Rhythm: regular rhythm Heart sounds: S1 normal heart sound present and S2 normal heart sound present GI: GI Palp: Yes Soft to palpation and Yes No hepatosplenomegaly present : General: Yes deferred Skin: Rashes: no rashes Wounds: no wounds Neuro: General: patient oriented x3 and CN's II-XI intact bilaterally Cranial nerves: Yes CN's II-XII intact bilaterally and Yes Equal, round and reactive pupils present Cognition (Neuro): normal cognition Speech: normal speech Gait exam (Neuro): Unable to assess gait Motor exam (neuro): 5/5 motor strength present throughout Extrem: General: normal to inspection, full ROM, no joint enlargement and no pedal edema Right lower extremity: ankle Details: abnormal ROM and other (brace in place) H&P: Results Labs Labs: Short CBC 07/30/24 Range/Units 19:42 WBC 4.0 L (4.5-10.0) K/mm3 Hgb 11.2 L (14.0-18.0) g/dL Hct 32.4 L (42.0-52.0) % Plt Count 98 L (150-375) k/mm3 BMP 07/30/24 19:42 Sodium 131 L Potassium 3.1 L Chloride 87 L Carbon Dioxide 33 H BUN 7 L Creatinine 1.00 Glucose 166 H Calcium 8.3 L Liver Function 07/30/24 Range/Units 19:42 Total Bilirubin 1.7 H (0.2-1.3) mg/dL AST 151 H (17-59) U/L ALT 44 (6-50) U/L Alkaline Phosphatase 282 H (38-126) U/L Albumin 3.4 L (3.5-5.1) g/dL Assessment and Plan Assessment and plan (1) Closed trimalleolar fracture of ankle: Code(s): S82.853A - Displaced trimalleolar fracture of unspecified lower leg, initial encounter for closed fracture Status: Acute Assessment and Plan: s/p reduction pain management bed rest (2) Cirrhosis of liver: Code(s): K74.60 - Unspecified cirrhosis of liver Status: Acute Assessment and Plan: continue spironolactone continue Lactulose appears euvolemic (3) COPD (chronic obstructive pulmonary disease): Code(s): J44.9 - Chronic obstructive pulmonary disease, unspecified Status: Acute Assessment and Plan: Albuterol MDI prn stable (4) Hyponatremia: Code(s): E87.1 - Hypo-osmolality and hyponatremia Status: Acute Assessment and Plan: chloride is low holding Lasix will give 1 L of NS (5) Hypokalemia: Code(s): E87.6 - Hypokalemia Status: Acute Assessment and Plan: holding Lasix (6) Normochromic normocytic anemia: Code(s): D64.9 - Anemia, unspecified Status: Acute Assessment and Plan: will send Iron studies Hospitalist MIPS Advance Care Plan I have confirmed that the patient's Advanced Care Plan is present, code status is documented, or surrogate decision maker is listed in patient medical record.: Yes Medication Reconciliation I have utilized all available resources to obtain, update and review the patients current medications (includes all prescriptions, OTC, herbals, cannabis, and nutritional supplements).: Yes
--- NOTE | 2024-07-30 21:15 | PC.NURSE ---
per EDP Dr. Rosenhtal fluids stopped at 500mL
[2024-07-30] MEDS: POTASSIUM CHLORIDE 20 MEQ PACKET (FOR LIQUID) 40 MEQ PO (21:23)
[2024-07-30] MEDS: MORPHINE SULFATE (*CRX) 2 MG/ML INJ IV PUSH (21:52)
--- NOTE | 2024-07-30 22:05 | PC.NURSE ---
Admission report called to visual merchandising managerSimon. Family is requesting that Dr. Almeida be consulted instead of Dr. Ortega r/t family preference and established patient care.
[2024-07-30 22:19] LABS: Iron 86 ug/dL (49-181)
[2024-07-30 22:29] LABS: Percent Iron Saturation 29 % (20-50)
--- NOTE | 2024-07-30 22:30 | ADMGEN ---
This patient, Robbie Cervantes, was admitted to [facility] Room 317-01. Patient/family oriented to hospital policies and general routines including ID bracelet, bed and alarms, visiting hours, pain management, procedures, bathroom and other care routines, personal items, smoking policy, room service/diet, and visiting hours. Information on how to activate the Rapid Response Team has been discussed. Patient/Family are encouraged to report perceived risks to care and to ask questions if they do not understand what they are told or what they should do.
[2024-07-30] MEDS: HYDROmorphone HCL INJ (*CRX) 1 MG/ML SYR IV PUSH (23:16)
[2024-07-31 00:34] VITALS: BMI 21.9
[2024-07-31 05:39] VITALS: BP 112/54; PULSE 80; RESP 12; TEMP 36.4; O2SAT 98
[2024-07-31] MEDS: HYDROmorphone HCL INJ (*CRX) 1 MG/ML SYR IV PUSH ×2 (05:50→08:21)
[2024-07-31] MEDS: ONDANSETRON INJ 4 MG/2 ML VIAL IV PUSH ×2 (08:09→14:58)
[2024-07-31] MEDS: SPIRONOLACTONE 50 MG TABLET 100 MG PO (08:13)
[2024-07-31] MEDS: SERTRALINE HCL 50 MG TABLET PO (08:13)
[2024-07-31] MEDS: FINASTERIDE 5 MG TABLET PO (08:13)
[2024-07-31] MEDS: MAGNESIUM OXIDE 400 MG TABLET PO (08:13)
[2024-07-31] MEDS: LACTULOSE 20 GM/30 ML UDC 6.67 GM PO (08:15)
[2024-07-31 08:24] VITALS: O2SAT 98
[2024-07-31] MEDS: traMADol HCL (*CRX) 50 MG TABLET PO ×2 (10:40→17:08)
--- NOTE | 2024-07-31 12:54 | P.CONOP_ITS ---
Assessment and Plan Assessment and plan (1) Trimalleolar fracture of right ankle: Qualifiers: Encounter type: initial encounter Fracture type: closed Qualified Code(s): S82.851A - Displaced trimalleolar fracture of right lower leg, initial encounter for closed fracture Code(s): S82.851A - Displaced trimalleolar fracture of right lower leg, initial encounter for closed fracture Status: Acute Assessment and Plan: Patient is a 74-year-old gentleman who came in through the emergency room yesterday evening after a fall home. A did not provide much detail with his history. He was found to be severely intoxicated with a blood alcohol of 289 mg/dL. He presented with a fracture dislocation right ankle trimalleolar. He had this successfully reduced the the talus was under the tibia but there is still residual displacement of the tibiotalar articulation and the lateral medial malleolus and posterior malleolus. A CT scan was obtained which showed that the posterior malleolus fracture is a smaller sized fragment approximately 15% of the posterior joint surface and has comminution and the bone quality is extremely profoundly osteoporotic. He has large lucencies in all the bones of the foot and ankle visualized the CT scan which would argue for osteoporosis and not a diffuse infiltrative process. The lateral malleolus is a Cleaning B type with minimal comminution and the medial malleolus has mild comminution as well. Even in the splint after reduction there is some residual posterior tibiotalar subluxation as well as lateral tibiotalar subluxation indicating that it is severely unstable. His past medical history is significant for severe cirrhosis of the liver. He takes lactulose and spironolactone. History of diabetes, COPD, hypertension, and peripheral vascular disease. He is a former smoker 104 pack year smoking history On examination his leg is splinted. Is very thin. Using the left leg as reference as the right lower extremity is covered with the OCL splint, he did have palpable pedal pulses and he has very thin legs rather skin thin skin no subcutaneous fat around the ankle. On the right side he denied any numbness or tingling to light touch testing. He denies any other injury. Assessment plan Patient has a very unstable trimalleolar right ankle fracture which is partially reduced but still somewhat subluxed. We are keeping him hospitalized is would not be safe to be at home and any weight-bearing on his right foot could destroy this fracture. I believe that his compliance cannot be counted on unfortunately. Patient says he does not smoke but he does chew tobacco pouch is I recommended that he stop doing completely as the nicotine in the pouch is can cause basal constriction and skin healing problems. I have discussed with him the he is at higher risk for complications and I do not think he will be safe to be discharged home after repair as I will not trust that he will comply with nonweightbearing status which will be absolutely necessary. His osteoporosis will make the strength of fixation poor and step ping down with full weight even 1 time may cause loss of fixation and we displacement after surgery. We are keeping him at bed rest up only for commode we will have physical therapy work with him on transfers nonweightbearing today and plan surgery tomorrow if he is felt to be medically stable. He is at risk for DTs as well. With his poor state of health, his risk for infection and skin edge breakdown is much higher and I think that intramedullary amber fixation the fibular fracture would be indicated for this gentleman if possible rather than sideplate and screws under his thin skin which may heal poorly and put him at high risk for infection. The medial side effects with cannulated screws 1 or 2 and the posterior malleolus fragment may be fixed within the anterior to posterior screw or may be left alone if it is in good position. I would be reluctant to recommend a posterolateral approach to his ankle because of problems with skin breakdown with that approach in someone with his poor health. If he has significant blistering around the lateral malleolus which would preclude surgical approach, I would proceed trans calcaneal talar tibial Steinmann pin fixation at least on a temporary basis to ensure that the ankle is reduced fully while we wait for the skin to be removed His labs also show that is INR protime and a PTT are all elevated and this is due to his cirrhosis is obviously severe. His AST alkaline phosphatase and bilirubin are all elevated as well. I am going to check a ammonia level for a baseline. Patient's ammonia level was elevated at 54 I reviewed the hospitalist's note and I would like inclusion of a form of statement that he is felt to be cleared to proceed with surgical stabilization of his fracture tomorrow. There is risk of anesthesia may exacerbate his hepatic insufficiency but nonsurgical treatment is not appropriate option for this fracture due to its instability. 80 minutes were spent in total care today of this patient History of Present Illness HPI Consult date: 07/31/24 Chief complaint: Trimalleolar fracture of right ankle PMFSH Past Medical History Medical History (Updated 07/31/24 @ 12:55 by Romeo Ortega MD) Cirrhosis of liver COPD (chronic obstructive pulmonary disease) Diabetes Hyperlipidemia Hypertension Peripheral vascular disease Surgical History Surgical History No pertinent past surgical history Social History Social History Smoking packs per day: 2 Smoking cigarettes per day: 40.0 Years smoked: 52 Smoking pack-years: 104.00 Smoking status: Former smoker Alcohol intake: former Do You Feel Safe in your Home?: Yes Lack of Transportation: No Lack of Food: Never True Current Housing: I Have Housing Concerned About Future Housing: No Difficulty Paying Gas/Electric Bills: No Difficulty Paying for Meds: No Currently Unemployed: No Education: High School Diploma/GED Difficulty w/ Childcare or Family Care: No Spiritual care concerns: No Meds Home Medications and Allergies Home Medications Medication Instructions Recorded Confirmed Type finasteride 5 mg tablet 5 mg PO DAILY 09/14/23 07/30/24 History furosemide 20 mg tablet 40 mg PO DAILY 09/14/23 07/30/24 History lactulose 10 gram/15 mL oral 30 ml PO DAILY 09/14/23 07/30/24 History solution magnesium oxide 400 mg PO DAILY 09/14/23 07/30/24 History spironolactone 100 mg tablet 100 mg PO DAILY 09/14/23 07/30/24 History albuterol sulfate 90 mcg/actuation 2 puff inhalation PRN PRN 07/30/24 07/30/24 History aerosol inhaler SOB/Wheezing cetirizine 10 mg tablet (Zyrtec) 10 mg PO HS 07/30/24 07/30/24 History potassium chloride 20 mEq 40 meq PO DAILY 07/30/24 07/30/24 History tablet,extended release sertraline 50 mg tablet 50 mg PO DAILY 07/30/24 07/30/24 History Allergies Allergy/AdvReac Type Severity Reaction Status Date / Time No Known Allergies Allergy Unknown Verified 07/30/24 20:49 Vital Signs Vital Signs - 24 hr 07/30/24 18:57 07/30/24 18:59 07/30/24 19:16 Temperature 36.4 C L 36.4 C L Pulse Rate 77 Pulse Rate [Apical] Respiratory Rate 17 16 Blood Pressure 105/54 L Blood Pressure [Left Arm] 101/57 L Blood Pressure [Right Arm] Pulse Oximetry 100 100 100 Oxygen Delivery Room Air Nasal Cannula Nasal Cannula Oxygen Flow Rate 3 3 07/30/24 19:13 07/30/24 19:20 07/30/24 19:25 Temperature 36.4 C L 36.4 C L 36.7 C Pulse Rate Pulse Rate [Apical] 75 71 79 Respiratory Rate 16 11 L 15 Blood Pressure Blood Pressure [Left Arm] 95/54 L Blood Pressure [Right Arm] 105/95 H 102/55 L Pulse Oximetry 100 100 100 Oxygen Delivery Room Air Nasal Cannula Nasal Cannula Oxygen Flow Rate 3 3 07/30/24 19:28 07/30/24 19:06 07/30/24 19:12 Temperature 36.7 C Pulse Rate 83 78 Pulse Rate [Apical] 74 Respiratory Rate 13 12 12 Blood Pressure 99/69 L Blood Pressure [Left Arm] Blood Pressure [Right Arm] 102/57 L Pulse Oximetry 100 100 100 Oxygen Delivery Nasal Cannula Oxygen Flow Rate 3 07/30/24 19:15 07/30/24 19:24 07/30/24 19:26 Temperature Pulse Rate 74 76 76 Pulse Rate [Apical] Respiratory Rate 14 13 16 Blood Pressure 102/55 L 95/54 L Blood Pressure [Left Arm] Blood Pressure [Right Arm] Pulse Oximetry 100 100 100 Oxygen Delivery Oxygen Flow Rate 07/30/24 19:30 07/30/24 19:31 07/30/24 19:41 Temperature Pulse Rate 76 72 74 Pulse Rate [Apical] Respiratory Rate 14 13 13 Blood Pressure 102/57 L 108/55 L Blood Pressure [Left Arm] Blood Pressure [Right Arm] Pulse Oximetry 100 100 100 Oxygen Delivery Oxygen Flow Rate 07/30/24 19:54 07/30/24 19:56 07/30/24 20:26 Temperature Pulse Rate 77 76 74 Pulse Rate [Apical] Respiratory Rate 12 13 13 Blood Pressure 108/54 L 115/51 L Blood Pressure [Left Arm] Blood Pressure [Right Arm] Pulse Oximetry 100 100 Oxygen Delivery Oxygen Flow Rate 07/30/24 20:27 07/30/24 20:33 07/30/24 20:36 Temperature Pulse Rate 71 73 83 Pulse Rate [Apical] Respiratory Rate 8 L 14 16 Blood Pressure 122/55 L Blood Pressure [Left Arm] Blood Pressure [Right Arm] Pulse Oximetry 100 100 100 Oxygen Delivery Oxygen Flow Rate 07/30/24 20:41 07/30/24 20:48 07/30/24 21:26 Temperature Pulse Rate 76 78 81 Pulse Rate [Apical] Respiratory Rate 13 15 14 Blood Pressure 118/54 L Blood Pressure [Left Arm] Blood Pressure [Right Arm] Pulse Oximetry 100 100 100 Oxygen Delivery Oxygen Flow Rate 07/30/24 22:02 07/30/24 21:46 07/30/24 22:01 Temperature Pulse Rate 81 81 74 Pulse Rate [Apical] Respiratory Rate 14 11 L 11 L Blood Pressure 102/50 L 98/51 L 102/50 L Blood Pressure [Left Arm] Blood Pressure [Right Arm] Pulse Oximetry 100 100 100 Oxygen Delivery Oxygen Flow Rate 07/30/24 22:00 07/31/24 00:25 07/31/24 05:39 Temperature 36.7 C 36.4 C L Pulse Rate 81 80 Pulse Rate [Apical] Respiratory Rate 12 12 Blood Pressure 108/50 L 112/54 L Blood Pressure [Left Arm] Blood Pressure [Right Arm] Pulse Oximetry 100 98 Oxygen Delivery Room Air Oxygen Flow Rate 07/31/24 08:24 Temperature Pulse Rate Pulse Rate [Apical] Respiratory Rate Blood Pressure Blood Pressure [Left Arm] Blood Pressure [Right Arm] Pulse Oximetry 98 Oxygen Delivery Room Air Oxygen Flow Rate Results Labs 07/30/24 19:42 07/30/24 19:42 Labs: Abnormal lab results 07/30/24 Range/Units 19:42 WBC 4.0 L (4.5-10.0) K/mm3 RBC 3.44 L (4.6-6.20) M/mm3 Hgb 11.2 L (14.0-18.0) g/dL Hct 32.4 L (42.0-52.0) % RDW 16.2 H (11.5-14.5) % Plt Count 98 L (150-375) k/mm3 PT 16.3 H (11.1-14.7) Seconds APTT 38.4 H (22.3-36.8) Seconds Sodium 131 L (137-145) mmol/L Potassium 3.1 L (3.4-5.0) mmol/L Chloride 87 L (98-107) mmol/L Carbon Dioxide 33 H (22-30) mmol/L BUN 7 L (9-20) mg/dL Glucose 166 H (65-110) mg/dL Calcium 8.3 L (8.4-10.2) mg/dL Total Bilirubin 1.7 H (0.2-1.3) mg/dL AST 151 H (17-59) U/L Alkaline Phosphatase 282 H (38-126) U/L Albumin 3.4 L (3.5-5.1) g/dL H & H 07/30/24 Range/Units 19:42 Hgb 11.2 L (14.0-18.0) g/dL Hct 32.4 L (42.0-52.0) % Coagulation 07/30/24 Range/Units 19:42 INR 1.3 All other labs normal.
--- NOTE | 2024-07-31 13:13 | P.PNAN_ITS ---
Anes - Initial Pre Proc Eval Procedure: Operation Date: 08/01/24 11:30 Proposed Procedures p Open Reduction Internal Fixation Right Ankle Fracture - Romeo Ortega MD Date/Time: 07/31/24 13:13 Surgeon: Sidney Patel MD Pre Op Diagnosis: Trimalleolar fracture of right ankle Patient Data Age: 74 Gender: M Height: 1.78 m Weight: 69.5 kg Last Vital Signs Temp 97.5 F L 07/31/24 05:39 Pulse 80 07/31/24 05:39 Resp 12 07/31/24 05:39 BP 112/54 L 07/31/24 05:39 Pulse Ox 98 07/31/24 08:24 O2 Del Method Room Air 07/31/24 08:24 O2 Flow Rate 3 07/30/24 19:28 Allergies Allergy/AdvReac Type Severity Reaction Status Date / Time No Known Allergies Allergy Unknown Verified 07/30/24 20:49 Home Medications Medication Instructions Recorded Confirmed Type finasteride 5 mg tablet 5 mg PO DAILY 09/14/23 07/30/24 History furosemide 20 mg tablet 40 mg PO DAILY 09/14/23 07/30/24 History lactulose 10 gram/15 mL oral 30 ml PO DAILY 09/14/23 07/30/24 History solution magnesium oxide 400 mg PO DAILY 09/14/23 07/30/24 History spironolactone 100 mg tablet 100 mg PO DAILY 09/14/23 07/30/24 History albuterol sulfate 90 mcg/actuation 2 puff inhalation PRN PRN 07/30/24 07/30/24 History aerosol inhaler SOB/Wheezing cetirizine 10 mg tablet (Zyrtec) 10 mg PO HS 07/30/24 07/30/24 History potassium chloride 20 mEq 40 meq PO DAILY 07/30/24 07/30/24 History tablet,extended release sertraline 50 mg tablet 50 mg PO DAILY 07/30/24 07/30/24 History Laboratory Tests 07/30/24 19:42 WBC 4.0 L K/mm3 (4.5-10.0) RBC 3.44 L M/mm3 (4.6-6.20) Hgb 11.2 L g/dL (14.0-18.0) Hct 32.4 L % (42.0-52.0) MCV 94.2 fl (80-100) MCH 32.6 pg (26-34) MCHC 34.6 g/dl (32-36) RDW 16.2 H % (11.5-14.5) Plt Count 98 L k/mm3 (150-375) MPV 10.4 fl (7.4-10.4) Immature Gran % (Auto) Not Reportable Neut % (Auto) Not Reportable Lymph % (Auto) Not Reportable [place] % (Auto) Not Reportable Eos % (Auto) Not Reportable Baso % (Auto) Not Reportable Lymph # (Auto) Not Reportable [place] # (Auto) Not Reportable Eos # (Auto) Not Reportable Baso # (Auto) Not Reportable Abs Immat Gran (auto) Not Reportable Absolute Neuts (auto) Not Reportable Absolute Nucleated RBC Not Reportable Total Counted 100 Neutrophils % (Manual) 57 % (46-73) Band Neutrophils % 2 % (0-6) Lymphocytes % (Manual) 31.0 % (18-44) Monocytes % (Manual) 8 % (3-9) Eosinophils % (Manual) 2 % (0-4) Nucleated RBC % Not Reportable Abs Neuts (Manual) 2.36 K/mm3 (1.3-6.7) Abs Lymphs (Manual) 1.24 K/mm3 (1.1-4.5) Abs Monocytes (Manual) 0.32 K/mm3 (0.1-0.90) Absolute Eos (Manual) 0.08 K/mm3 (0.02-0.50) Platelet Estimate Decreased (Adequate) % Immature Plt Fraction 6.2 % (0.9-11.2) Schistocytes None seen PT 16.3 H Seconds (11.1-14.7) INR 1.3 APTT 38.4 H Seconds (22.3-36.8) Sodium 131 L mmol/L (137-145) Potassium 3.1 L mmol/L (3.4-5.0) Chloride 87 L mmol/L (98-107) Carbon Dioxide 33 H mmol/L (22-30) Anion Gap 11 mmol/L (4-12) BUN 7 L mg/dL (9-20) Creatinine 1.00 mg/dL (0.7-1.3) Estim Creat Clear Calc 52 ml/min Estimated GFR > 60 (59 - ) Glucose 166 H mg/dL (65-110) Calcium 8.3 L mg/dL (8.4-10.2) Iron 86 ug/dL (49-181) TIBC 295 ug/dL (265-497) % Saturation 29 % (20-50) Total Bilirubin 1.7 H mg/dL (0.2-1.3) AST 151 H U/L (17-59) ALT 44 U/L (6-50) Alkaline Phosphatase 282 H U/L (38-126) Total Protein 7.0 g/dL (6.3-8.2) Albumin 3.4 L g/dL (3.5-5.1) Ethyl Alcohol 289 mg/dL (<10) Patient hx anesthesia problems: none Family hx anesthesia problems: none Results Review: All pre-operative results and documents have been reviewed as part of the pre- operative evaluation. [facility] Past Medical History Medical History (Updated 08/01/24 @ 07:39 by Shruthi Swan APRN) Cirrhosis of liver COPD (chronic obstructive pulmonary disease) Diabetes Hyperlipidemia Hypertension Peripheral vascular disease Surgical History Surgical History No pertinent past surgical history Social History Social History Smoking packs per day: 2 Smoking cigarettes per day: 40.0 Years smoked: 52 Smoking pack-years: 104.00 Smoking status: Former smoker Alcohol intake: former Do You Feel Safe in your Home?: Yes Lack of Transportation: No Lack of Food: Never True Current Housing: I Have Housing Concerned About Future Housing: No Difficulty Paying Gas/Electric Bills: No Difficulty Paying for Meds: No Currently Unemployed: No Education: High School Diploma/GED Difficulty w/ Childcare or Family Care: No Spiritual care concerns: No Anes - Eval Final PreProcedure Day of Procedure 07/31/24 13:13 Patient weight: normal Heart: regular rate and rhythm Lungs: clear to auscultation Airway: Mallampati scale class II Neurological: alert and oriented Last oral intake: >/= 8 hours ASA classification: III Emergent: no Anesthetic plan: proceed Anesthesia type and monitoring: general LMA and standard monitoring Results Review: All pre-operative results and documents have been reviewed as part of the pre- operative evaluation. Informed Consent: The patient's anesthetic plan and its attendant risks and benefits were discussed with the patient/family/POA. Questions were solicited and answers provided to the satisfaction of the patient/family/POA.
[2024-07-31 13:28] LABS: Ammonia 54 umol/L (9-30)
[2024-07-31 14:00] VITALS: BP 126/55; PULSE 82; RESP 20; TEMP 36.2; O2SAT 98
--- NOTE | 2024-07-31 15:38 | P.PNIM_ITS ---
Progress Note: A&P Assessment and Plan (1) Closed trimalleolar fracture of ankle: Code(s): S82.853A - Displaced trimalleolar fracture of unspecified lower leg, initial encounter for closed fracture Status: Acute Assessment and Plan: - s/p reduction in ER. - Ortho consulted and pt scheduled for surgical repair in AM. - Maintain bedrest. - Pain meds PRN. - PT/OT treatment post-op. (2) Cirrhosis of liver: Code(s): K74.60 - Unspecified cirrhosis of liver Status: Acute Assessment and Plan: - Possibly related to alcohol abuse. - Continue spironolactone and lactulose - Monitor for decompensation. (3) COPD (chronic obstructive pulmonary disease): Code(s): J44.9 - Chronic obstructive pulmonary disease, unspecified Status: Acute Assessment and Plan: - Appears stable. - Bronchodilators PRN. (4) Hyponatremia: Code(s): E87.1 - Hypo-osmolality and hyponatremia Status: Acute Assessment and Plan: - Improving. - Continue to monitor closely. - Continue to hold Lasix. (5) Hypokalemia: Code(s): E87.6 - Hypokalemia Status: Acute Assessment and Plan: - Replaced. - Monitor levels closely. (6) Normochromic normocytic anemia: Code(s): D64.9 - Anemia, unspecified Status: Acute Assessment and Plan: - Possibly related to alcohol abuse. - Iron studies pending. - Monitor Hgb closely. (7) Depression: Code(s): F32.A - Depression, unspecified Status: Acute Assessment and Plan: - Continue sertraline. Plan Scheduled for surgical repair in AM. Pain meds PRN. Time Spent With Patient Time with patient: 15 - 25 minutes Subjective Date/time seen: 07/31/24 15:38 Patient calm on bedrest reporting some pain to his right foot. Denies any other acute distress. Interval history: Patient admitted after a fall incident at home, sustaining a right ankle fracture. Patient stated that he was walking in the yard when he rolled his right ankle resulting in a deformity. Patient had a blood alcohol level of 289 mg/dl on admission, though he denied alcohol use. Review of Systems Review of Systems: All systems reviewed & are unremarkable except as noted in HPI and below Exam Narrative: HEENT: Atraumatic, PERRL, EOM, moist mucus membranes. Neck: Supple. Lungs: Clear bilaterally. Heart: RRR, no murmurs. Abdomen: Soft, non-tender, non-distended, +ve bowel sounds X4 quadrants. Extremities: No edema, splint to Right Ankle, good sensations to right foot and left foot. Skin: Warm and dry with no lesions. Neuro: Well oriented, no focal neuro deficits noted. Psych: Pleasant and co-operative. Objective Data Vital Signs Vital Signs: Vital Signs - 24 hr 07/30/24 18:57 07/30/24 18:59 07/30/24 19:16 Temperature 97.5 F L 97.5 F L Pulse Rate 77 Pulse Rate [Apical] Respiratory Rate 17 16 Blood Pressure 105/54 L Blood Pressure [Left Arm] 101/57 L Blood Pressure [Right Arm] Pulse Oximetry 100 100 100 Oxygen Delivery Room Air Nasal Cannula Nasal Cannula Oxygen Flow Rate 3 3 07/30/24 19:13 07/30/24 19:20 07/30/24 19:25 Temperature 97.5 F L 97.5 F L 98.1 F Pulse Rate Pulse Rate [Apical] 75 71 79 Respiratory Rate 16 11 L 15 Blood Pressure Blood Pressure [Left Arm] 95/54 L Blood Pressure [Right Arm] 105/95 H 102/55 L Pulse Oximetry 100 100 100 Oxygen Delivery Room Air Nasal Cannula Nasal Cannula Oxygen Flow Rate 3 3 07/30/24 19:28 07/30/24 19:06 07/30/24 19:12 Temperature 98.1 F Pulse Rate 83 78 Pulse Rate [Apical] 74 Respiratory Rate 13 12 12 Blood Pressure 99/69 L Blood Pressure [Left Arm] Blood Pressure [Right Arm] 102/57 L Pulse Oximetry 100 100 100 Oxygen Delivery Nasal Cannula Oxygen Flow Rate 3 07/30/24 19:15 07/30/24 19:24 07/30/24 19:26 Temperature Pulse Rate 74 76 76 Pulse Rate [Apical] Respiratory Rate 14 13 16 Blood Pressure 102/55 L 95/54 L Blood Pressure [Left Arm] Blood Pressure [Right Arm] Pulse Oximetry 100 100 100 Oxygen Delivery Oxygen Flow Rate 07/30/24 19:30 07/30/24 19:31 07/30/24 19:41 Temperature Pulse Rate 76 72 74 Pulse Rate [Apical] Respiratory Rate 14 13 13 Blood Pressure 102/57 L 108/55 L Blood Pressure [Left Arm] Blood Pressure [Right Arm] Pulse Oximetry 100 100 100 Oxygen Delivery Oxygen Flow Rate 07/30/24 19:54 07/30/24 19:56 07/30/24 20:26 Temperature Pulse Rate 77 76 74 Pulse Rate [Apical] Respiratory Rate 12 13 13 Blood Pressure 108/54 L 115/51 L Blood Pressure [Left Arm] Blood Pressure [Right Arm] Pulse Oximetry 100 100 Oxygen Delivery Oxygen Flow Rate 07/30/24 20:27 07/30/24 20:33 07/30/24 20:36 Temperature Pulse Rate 71 73 83 Pulse Rate [Apical] Respiratory Rate 8 L 14 16 Blood Pressure 122/55 L Blood Pressure [Left Arm] Blood Pressure [Right Arm] Pulse Oximetry 100 100 100 Oxygen Delivery Oxygen Flow Rate 07/30/24 20:41 07/30/24 20:48 07/30/24 21:26 Temperature Pulse Rate 76 78 81 Pulse Rate [Apical] Respiratory Rate 13 15 14 Blood Pressure 118/54 L Blood Pressure [Left Arm] Blood Pressure [Right Arm] Pulse Oximetry 100 100 100 Oxygen Delivery Oxygen Flow Rate 07/30/24 22:02 07/30/24 21:46 07/30/24 22:01 Temperature Pulse Rate 81 81 74 Pulse Rate [Apical] Respiratory Rate 14 11 L 11 L Blood Pressure 102/50 L 98/51 L 102/50 L Blood Pressure [Left Arm] Blood Pressure [Right Arm] Pulse Oximetry 100 100 100 Oxygen Delivery Oxygen Flow Rate 07/30/24 22:00 07/31/24 00:25 07/31/24 05:39 Temperature 98.1 F 97.5 F L Pulse Rate 81 80 Pulse Rate [Apical] Respiratory Rate 12 12 Blood Pressure 108/50 L 112/54 L Blood Pressure [Left Arm] Blood Pressure [Right Arm] Pulse Oximetry 100 98 Oxygen Delivery Room Air Oxygen Flow Rate 07/31/24 08:24 07/31/24 14:00 Temperature 97.2 F L Pulse Rate 82 Pulse Rate [Apical] Respiratory Rate 20 Blood Pressure 126/55 L Blood Pressure [Left Arm] Blood Pressure [Right Arm] Pulse Oximetry 98 98 Oxygen Delivery Room Air Oxygen Flow Rate Intake/Output Intake/Output: Intake & Output 07/28/24 07/29/24 07/30/24 07/31/24 23:59 23:59 23:59 23:59 Intake Total 500 1472 Output Total 300 Balance 500 1172 Meds/Results Medications: Active Medications Generic Name Dose Route Start Last Admin Trade Name Freq PRN Reason Stop Dose Admin Albuterol 2 puff 07/31/24 08:07 Albuterol Sulfate (*Sp) Aerosol 1 Puff INHALATION Q4H PRN SOB/Wheezing Finasteride 5 mg 07/31/24 09:00 07/31/24 08:13 Finasteride 5 Mg Tablet PO 5 mg DAILY THA Administration Hydromorphone HCl 1 mg 07/30/24 23:01 07/31/24 08:21 Hydromorphone Hcl Inj (*Crx) 1 Mg/Ml Syr IV PUSH 1 mg Q3H PRN Administration Pain Rated 7-10 Vancomycin HCl 1,000 mg in 250 mls @ 250 mls/hr 07/31/24 15:05 Vancomycin 1,000 Mg/Ns 250 Ml IVPB 07/31/24 16:04 ONCE ONE Lactulose 6.67 gm 07/31/24 09:00 07/31/24 08:15 Lactulose 20 Gm/30 Ml Udc PO 6.67 gm DAILY THA Administration Loratadine 10 mg 07/31/24 21:00 Loratadine 10 Mg Tablet PO HS THA Magnesium Oxide 400 mg 07/31/24 09:00 07/31/24 08:13 Magnesium Oxide 400 Mg Tablet PO 400 mg DAILY THA Administration Ondansetron HCl 4 mg 07/31/24 08:05 07/31/24 14:58 Ondansetron Inj 4 Mg/2 Ml Vial IV PUSH 4 mg Q6H PRN Administration Nausea And Vomiting Sertraline HCl 50 mg 07/31/24 09:00 07/31/24 08:13 Sertraline Hcl 50 Mg Tablet PO 50 mg DAILY THA Administration Spironolactone 100 mg 07/31/24 09:00 07/31/24 08:13 Spironolactone 50 Mg Tablet PO 100 mg DAILY THA Administration Tramadol HCl 50 mg 07/30/24 21:45 07/31/24 10:40 Tramadol Hcl (*Crx) 50 Mg Tablet PO 50 mg Q6H PRN Administration Pain Rated 4-6 Radiology Results: ITS Impressions Ankle X-Ray 07/30/24 20:25 IMPRESSION: Improved alignment post reduction, as detailed. Chest X-Ray 07/30/24 20:27 IMPRESSION: No focal infiltrate or effusion. Ankle CT 07/30/24 23:52 IMPRESSION: Trimalleolar fracture of the right ankle, as detailed above. Labs Labs: Laboratory Results - last 24 hr 07/30/24 07/31/24 19:42 13:09 WBC 4.0 L RBC 3.44 L Hgb 11.2 L Hct 32.4 L MCV 94.2 MCH 32.6 MCHC 34.6 RDW 16.2 H Plt Count 98 L MPV 10.4 Immature Gran % (Auto) Not Reportable Neut % (Auto) Not Reportable Lymph % (Auto) Not Reportable [place] % (Auto) Not Reportable Eos % (Auto) Not Reportable Baso % (Auto) Not Reportable Lymph # (Auto) Not Reportable [place] # (Auto) Not Reportable Eos # (Auto) Not Reportable Baso # (Auto) Not Reportable Abs Immat Gran (auto) Not Reportable Absolute Neuts (auto) Not Reportable Absolute Nucleated RBC Not Reportable Total Counted 100 Neutrophils % (Manual) 57 Band Neutrophils % 2 Lymphocytes % (Manual) 31.0 Monocytes % (Manual) 8 Eosinophils % (Manual) 2 Nucleated RBC % Not Reportable Abs Neuts (Manual) 2.36 Abs Lymphs (Manual) 1.24 Abs Monocytes (Manual) 0.32 Absolute Eos (Manual) 0.08 Platelet Estimate Decreased % Immature Plt Fraction 6.2 Schistocytes None seen PT 16.3 H INR 1.3 APTT 38.4 H Sodium 131 L Potassium 3.1 L Chloride 87 L Carbon Dioxide 33 H Anion Gap 11 BUN 7 L Creatinine 1.00 Estim Creat Clear Calc 52 Estimated GFR > 60 Glucose 166 H Calcium 8.3 L Iron 86 TIBC 295 % Saturation 29 Total Bilirubin 1.7 H AST 151 H ALT 44 Alkaline Phosphatase 282 H Ammonia 54 H Total Protein 7.0 Albumin 3.4 L Ethyl Alcohol 289 Quality VTE Prophylaxis VTE prophylaxis: mechanical ordered If No VTE Prophylaxis Answer both mechanical and pharmacologic: Reason no pharmacologic proph: medical contraindication (scheduled for surgery) Hospitalist MIPS Advance Care Plan I have confirmed that the patient's Advanced Care Plan is present, code status is documented, or surrogate decision maker is listed in patient medical record.: Yes Medication Reconciliation I have utilized all available resources to obtain, update and review the patients current medications (includes all prescriptions, OTC, herbals, cannabis, and nutritional supplements).: Yes
[2024-07-31] MEDS: LORATADINE 10 MG TABLET PO (20:03)
[2024-07-31 21:13] VITALS: BP 119/59; PULSE 83; RESP 16; TEMP 36.7; O2SAT 99
[2024-07-31 21:47] VITALS: O2SAT 98
[2024-08-01] VITALS (14 sets, daily range): BP systolic 94–133; BP diastolic 44–71; PULSE 80–101; RESP 16–22; TEMP 35.7–36.8; O2SAT 91–100
[2024-08-01] MEDS: traMADol HCL (*CRX) 50 MG TABLET PO (03:15)
[2024-08-01] MEDS: HYDROmorphone HCL INJ (*CRX) 1 MG/ML SYR IV PUSH (04:57)
[2024-08-01] MEDS: ONDANSETRON INJ 4 MG/2 ML VIAL IV PUSH (05:08)
[2024-08-01 07:05] LABS: Hematocrit 33.1 % (42.0-52.0); Hemoglobin 11.2 g/dL (14.0-18.0); Immature Platelet Fraction Pct 7.6 % (0.9-11.2); Mean Corpuscular HGB Conc 33.8 g/dl (32-36); Mean Corpuscular Hemoglobin 32.7 pg (26-34); Mean Corpuscular Volume 96.5 fl (80-100); Mean Platelet Volume 10.9 fl (7.4-10.4); Platelet Count Result 90 k/mm3 (150-375); Red Blood Count 3.43 M/mm3 (4.6-6.20); White Blood Count 4.9 K/mm3 (4.5-10.0)
[2024-08-01 07:14] LABS: Alanine Aminotransferase 43 U/L (6-50); Albumin Level 3.1 g/dL (3.5-5.1); Alkaline Phosphatase 290 U/L (38-126); Anion Gap 5 mmol/L (4-12); Aspartate Amino Transferase 144 U/L (17-59); Bilirubin,Total 3.4 mg/dL (0.2-1.3); Blood Urea Nitrogen 11 mg/dL (9-20); Carbon Dioxide 37 mmol/L (22-30); Chloride 87 mmol/L (98-107); Estimated CRCL calculation 90 ml/min; Estimated Glomerular Filt Rate > 60; Glucose 155 mg/dL (65-110); Potassium 4.4 mmol/L (3.4-5.0); Sodium 129 mmol/L (137-145)
[2024-08-01 07:16] LABS: INR 1.2; Prothrombin Time 15.4 Seconds (11.1-14.7)
--- NOTE | 2024-08-01 07:37 | P.PNIM_ITS ---
Progress Note: A&P Assessment and Plan (1) Closed trimalleolar fracture of ankle: Code(s): S82.853A - Displaced trimalleolar fracture of unspecified lower leg, initial encounter for closed fracture Status: Acute Assessment and Plan: - Ortho consulted and pt scheduled for surgical repair in AM. - Maintain bedrest. - Pain meds PRN. - PT/OT treatment post-op. (2) Cirrhosis of liver: Code(s): K74.60 - Unspecified cirrhosis of liver Status: Acute Assessment and Plan: - Possibly related to alcohol abuse. - Continue spironolactone and lactulose - Monitor for decompensation. (3) COPD (chronic obstructive pulmonary disease): Code(s): J44.9 - Chronic obstructive pulmonary disease, unspecified Status: Acute Assessment and Plan: - Appears stable. - Bronchodilators PRN. (4) Hyponatremia: Code(s): E87.1 - Hypo-osmolality and hyponatremia Status: Acute Assessment and Plan: - Improving. - Continue to monitor closely. - Continue Lasix. (5) Hypokalemia: Code(s): E87.6 - Hypokalemia Status: Acute Assessment and Plan: - Replaced. - Monitor levels closely. (6) Normochromic normocytic anemia: Code(s): D64.9 - Anemia, unspecified Status: Acute Assessment and Plan: - Possibly related to alcohol abuse. - Iron studies pending. - Monitor Hgb closely. (7) Depression: Code(s): F32.A - Depression, unspecified Status: Acute Assessment and Plan: - Continue sertraline. Plan Scheduled for surgical repair in AM. Pain meds PRN. Subjective Date/time seen: 08/01/24 07:37 Interval history: Patient admitted after a fall incident at home, sustaining a right ankle fracture. Patient stated that he was walking in the yard when he rolled his right ankle resulting in a deformity. Patient had a blood alcohol level of 289 mg/dl on admission, though he denied alcohol use. plan for ORIF today with Orthopedics Review of Systems Review of Systems: fall, right ankle pain. All systems reviewed & are unremarkable except as noted in HPI and below Exam Narrative: HEENT: Atraumatic, PERRL, EOM, moist mucus membranes. Neck: Supple. Lungs: Clear bilaterally. Heart: RRR, no murmurs. Abdomen: Soft, non-tender, non-distended, +ve bowel sounds X4 quadrants. Extremities: No edema, splint to Right Ankle, good sensations to right foot and left foot. Skin: Warm and dry with no lesions. Neuro: Well oriented, no focal neuro deficits noted. Psych: Pleasant and co-operative. Const: General: comfortable, no acute distress, well developed, alert, awake and average body habitus Nutritional Appearance: average body habitus Orientation/consciousness: patient oriented x3 HENMT: Head: normal to inspection, normocephalic and atraumatic Ears: hearing grossly normal bilaterally Face/Nose/Sinus: normal facial exam Face and sinus: normal facial exam Eyes: General: appearance normal, both eyes and all related structures Pupi ls: Equal, round and reactive pupils present EOM: EOMs intact bilaterally Neck: Neck: full ROM, no lymphadenopathy and no JVD Thyroid: thyroid normal Lymphatic: no lymphadenopathy noted Resp: Effort & Inspection: normal respiratory effort and able to speak in complete sentences Auscultation: clear to auscultation bilaterally Cardio: Jugular venous distension: no JVD Rate: regular rate Rhythm: regular rhythm Heart sounds: S1 normal heart sound present and S2 normal heart sound present : General: Yes deferred Skin: Rashes: no rashes Wounds: no wounds Neuro: General: patient oriented x3, CN's II-XI intact bilaterally and Unable to assess gait Cranial nerves: Yes CN's II-XII intact bilaterally and Yes Equal, round and reactive pupils present Cognition (Neuro): normal cognition Speech: normal speech Gait exam (Neuro): Normal gait present and Unable to assess gait Motor exam (neuro): 5/5 motor strength present throughout Extrem: General: normal to inspection, full ROM, no joint enlargement and no pedal edema Right lower extremity: ankle Details: abnormal ROM and other (brace in place) Objective Data Vital Signs Vital Signs: Vital Signs - 24 hr 07/31/24 08:24 07/31/24 14:00 07/31/24 20:00 Temperature 97.2 F L Pulse Rate 82 Respiratory Rate 20 Blood Pressure 126/55 L Pulse Oximetry 98 98 Oxygen Delivery Room Air Room Air 07/31/24 21:13 07/31/24 21:47 08/01/24 04:20 Temperature 98.0 F 98.3 F Pulse Rate 83 80 Respiratory Rate 16 20 Blood Pressure 119/59 L 94/44 L Pulse Oximetry 99 98 100 Oxygen Delivery Room Air Intake/Output Intake/Output: Intake & Output 07/29/24 07/30/24 07/31/24 08/01/24 23:59 23:59 23:59 23:59 Intake Total 500 2092 50 Output Total 500 Balance 500 1592 50 Meds/Results Medications: Active Medications Generic Name Dose Route Start Last Admin Trade Name Freq PRN Reason Stop Dose Admin Albuterol 2 puff 07/31/24 08:07 Albuterol Sulfate (*Sp) Aerosol 1 Puff INHALATION Q4H PRN SOB/Wheezing Finasteride 5 mg 07/31/24 09:00 08/01/24 07:29 Finasteride 5 Mg Tablet PO Not Given DAILY THA Hydromorphone HCl 1 mg 07/30/24 23:01 08/01/24 04:57 Hydromorphone Hcl Inj (*Crx) 1 Mg/Ml Syr IV PUSH 1 mg Q3H PRN Administration Pain Rated 7-10 Vancomycin HCl 1,000 mg in 250 mls @ 250 mls/hr 08/01/24 09:30 Vancomycin 1,000 Mg/Ns 250 Ml IVPB 08/01/24 10:29 ONCE ONE Cefazolin Sodium 2 gm in 50 mls @ 100 mls/hr 08/01/24 09:30 Ancef 2 Gm/D5w 50 Ml IVPB 08/01/24 09:59 ONCE ONE Lactulose 6.67 gm 07/31/24 09:00 07/31/24 08:15 Lactulose 20 Gm/30 Ml Udc PO 6.67 gm DAILY THA Administration Loratadine 10 mg 07/31/24 21:00 07/31/24 20:03 Loratadine 10 Mg Tablet PO 10 mg HS THA Administration Magnesium Oxide 400 mg 07/31/24 09:00 07/31/24 08:13 Magnesium Oxide 400 Mg Tablet PO 400 mg DAILY THA Administration Ondansetron HCl 4 mg 07/31/24 08:05 08/01/24 05:08 Ondansetron Inj 4 Mg/2 Ml Vial IV PUSH 4 mg Q6H PRN Administration Nausea And Vomiting Sertraline HCl 50 mg 07/31/24 09:00 07/31/24 08:13 Sertraline Hcl 50 Mg Tablet PO 50 mg DAILY THA Administration Spironolactone 100 mg 07/31/24 09:00 08/01/24 07:30 Spironolactone 50 Mg Tablet PO Not Given DAILY THA Tramadol HCl 50 mg 07/30/24 21:45 08/01/24 03:15 Tramadol Hcl (*Crx) 50 Mg Tablet PO 50 mg Q6H PRN Administration Pain Rated 4-6 Radiology Results: ITS Impressions Ankle X-Ray 07/30/24 20:25 IMPRESSION: Improved alignment post reduction, as detailed. Chest X-Ray 07/30/24 20:27 IMPRESSION: No focal infiltrate or effusion. Ankle CT 07/30/24 23:52 IMPRESSION: Trimalleolar fracture of the right ankle, as detailed above. Labs Labs: Laboratory Results - last 24 hr 07/31/24 08/01/24 13:09 06:26 WBC 4.9 RBC 3.43 L Hgb 11.2 L Hct 33.1 L MCV 96.5 MCH 32.7 MCHC 33.8 RDW 16.0 H Plt Count 90 L MPV 10.9 H % Immature Plt Fraction 7.6 PT 15.4 H INR 1.2 Sodium 129 L Potassium 4.4 Chloride 87 L Carbon Dioxide 37 H Anion Gap 5 BUN 11 Creatinine 0.60 L Estim Creat Clear Calc 90 Estimated GFR > 60 Glucose 155 H Calcium 9.0 Total Bilirubin 3.4 H AST 144 H ALT 43 Alkaline Phosphatase 290 H Ammonia 54 H Total Protein 6.0 L Albumin 3.1 L Quality VTE Prophylaxis VTE prophylaxis: mechanical ordered
[2024-08-01] MEDS: LACTULOSE 20 GM/30 ML UDC 6.67 GM PO (08:11)
[2024-08-01] MEDS: SERTRALINE HCL 50 MG TABLET PO (08:11)
[2024-08-01] MEDS: MAGNESIUM OXIDE 400 MG TABLET PO (08:11)
--- NOTE | 2024-08-01 10:12 | PC.NURSE ---
To OR per [ ], IV [ ]. Report given to [LANDEN ].
[2024-08-01] MEDS: LACTATED RINGERS 1,000 ML 30 ML IV CONT ×2 (10:18→13:27)
[2024-08-01] MEDS: VANCOMYCIN 1,000 MG/NS 250 ML BAG 250 MG IVPB (10:28)
--- NOTE | 2024-08-01 10:52 | P.HPUP_ITS ---
History and Physical Update Update Date/Time: 08/01/24 10:52 History and Physical has been reviewed, including an updated exam of the patient. The patient has unfortunately rather severe swelling over the lateral aspect of the ankle. This is approximately twice the circumference of his left ankle. He has 1+ dorsalis pedis pulse palpable. Skin is otherwise intact laterally without blistering. Medially, the skin is erythematous in an area this call her it is being tented by the fracture edge of the donor site of the medial malleolus on the medial distal tibia at due to subluxation of the foot laterally. I have explained to the patient today did it would be safe to approach the lateral malleolus. He will require a mini incision to reduce the lateral malleolus accurately. The degree of swelling would preclude simply using towel clips to the skin and, even a her incision laterally will not close due to the tightness laterally. Medially does not have significant swelling and I would recommend that we repair the medial malleolus and I would recommend we stabilize the tibiotalar joint with trans calcaneal talar tibial threaded Steinmann pin to keep the tibiotalar joint aligned while we wait for the swelling to go down which will take approximately 10-12 days. This will also help keep the posterior malleolus in a more reduced position as it may be difficult to move without direct exposure after another 10 or 12 days. I have discussed this plan with him and he understands that he will need another operation to definitively stabilize his ankle fracture with the swelling is reduced. He has not been particularly compliant with keeping the foot on the pillow. E ach time I have seen him yesterday and today he has the foot directly on the bed with the stack of pillows to the side. I have discussed with him that elevation will be critical for the swelling to go down a timely fashion. Risks, benefits, and alternatives have been discussed and questions answered. Patient agrees to proceed with procedure.
[2024-08-01] MEDS: ceFAZolin 2 GM/D5W 50 ML 2 GM/50 ML BAG IVPB ×2 (11:09→18:28)
[2024-08-01] MEDS: ceFAZolin SODIUM 1 GM VIAL (11:33)
--- NOTE | 2024-08-01 13:11 | P.OP_ITS ---
Procedure Note - Detailed Date of Procedure 08/01/24 Pre-op Diagnosis Trimalleolar fracture of right ankle Post-op Diagnosis Same Procedure Performed Open reduction internal fixation right trimalleolar ankle fracture without fixation of posterior lip. Surgeon Romeo Ortega MD Special Services Coordinator Nina Anesthesia General Description of Procedure Patient was brought to the operating room and general anesthesia was administered. His ankle remained extremely unstable and even the splint was subluxed and when I reduced the ankle under anesthesia, I could see that the swelling was not as bad as I had thought earlier. There was hematoma and the skin was easily compressible and the fibula easily palpable and no significant edema. I therefore concluded that unless the swelling change we would be able to proceed with the internal fixation of the lateral malleolus fracture. I approached the left medial malleolus 1st. The medial skin was fairly bruised where it was little stretched over the medial tibial metaphysis to the subluxation of the talus. He had a previous 3 in incision from prior saphenous vein harvest for prior carotid endarterectomy procedure and we used that incision and this brought us down to the fracture site. There was some comminution of the surface anteriorly but the main portion of the medial malleolus was a fairly large fragment and non comminuted. We evacuated hematoma and we removed interposed soft tissue and achieved an anatomic reduction held with bone clamp inserted [address] to cannulated screws across the fracture this perpendicular to the plane of the fracture as possible and both screws obtained very good purchase. We confirmed that the posterior screw did not violate the posterior surface of the tibial metaphysis under fluoro and that we had anatomic reduction. Has simply incising the skin medially decompressed a fairly large amount of hematoma blood, the swelling laterally was notably diminished and the skin looked un bruised and no significant. Therefore we proceeded with internal fixation. A 3.5 cm longitudinal incision was made centered over the rather short oblique Cleaning B lateral malleolus fracture which fortunately was not comminuted. After removing hematoma we were able to achieve an anatomic reduction and hold this with a single pointed bone reduction clamp. We then made a 15 mm longitudinal incision distal to the lateral malleolus and inserted the guide pin into the tip the lateral malleolus the appropriate entry point and achieved a linear intramedullary pin placement up into the canal. We confirmed proper alignment and both planes. The Reamer was used to ream the lateral malleolus fragment and then we inserted the 3.2 mm drill bit and could see the pre were not touching the cortices in the shaft. We opened up along 4.0 mm drill bit preparation for the 180 mm fibular amber Arthrex. This was inserted to the proper depth and then we chose the 9 and 80 mm fibular amber 4 mm diameter by Arthrex and this was inserted to the appropriate depth confirmed by fluoro. The locking tines at the proximal end of the amber were properly deployed. We placed 2 lateral to medial screws in the distal end of the amber through the lateral malleolus avoiding penetrating medial subchondral bone and then we placed a 60 mm syndesmotic screw with the ankle held at neutral dorsiflexion for additional stabilization. We confirmed anatomic reduction of the mortise on the AP and lateral fluoroscopic views. The out rigger apprentice was removed and we inserted the end cap on the end of the amber to lock the distal interlocking screw place. The lateral fluoroscopic view showed near perfect amish of alignment of the posterior malleolus fragment. This was smaller in size osteoporotic somewhat comminuted so we did not place additional fixation in the posterior malleolus. The wounds were irrigated with antibiotic solution closed with 3-0 subcutaneous Vicryl and glue. Well-padded posterior splint was applied the patient transferred to postop recovery room in good condition. Urine Output 150 [facility] Billing Surgery - Charge Forward: Surgery Billing (Open reduction internal fixation of right trimalleolar ankle fracture without fixation of posterior lip)
--- NOTE | 2024-08-01 13:43 | P.OPB_ITS ---
Procedure Note - Brief Procedure Note - Brief Date of procedure: 08/01/24 Trimalleolar fracture of right ankle Procedure performed: ORIF right trimalleolar ankle fracture Surgeon: RANJANA Le Findings: 74-year-old male who underwent ORIF of his right trimalleolar ankle fracture on 08/01. I was involved in the procedure including positioning the patient on the OR table and 1st assisting through the time of surgery. Total time spent was 2- 1/2 hours Urine output (mL): 150
[2024-08-01 14:33] LABS: Glucose Point of Care 141 mg/dl (65-105)
--- NOTE | 2024-08-01 14:40 | PC.NURSE ---
Returned from OR per [ ]. Report received from [garland ].
--- NOTE | 2024-08-01 15:06 | PCPTNOTE ---
attempted PT eval, pt was in surgery at time of attempted, will follow
[2024-08-01] MEDS: SODIUM CHLORIDE 0.9% IV 1,000 ML 125 ML IV CONT (15:10)
[2024-08-01] MEDS: SENNA/DOCUSATE SODIUM TABLET 2 TAB PO (16:56)
[2024-08-01] MEDS: oxyCODONE HCL (*CRX) 2.5 MG TAB IR PO ×2 (16:57→21:15)
[2024-08-01] MEDS: LORATADINE 10 MG TABLET PO (21:15)
[2024-08-01] MEDS: FAMOTIDINE 20 MG TABLET PO (21:15)
[2024-08-01] MEDS: VANCOMYCIN 1,000 MG/NS 250 ML 1,000 MG/250 ML BAG 250 MG IVPB (23:10)
[2024-08-02] VITALS (8 sets, daily range): BP systolic 96–138; BP diastolic 38–64; PULSE 80–110; RESP 12–20; TEMP 35.9–37.1; O2SAT 93–98
[2024-08-02] MEDS: ceFAZolin 2 GM/D5W 50 ML 2 GM/50 ML BAG IVPB ×2 (03:10→10:37)
[2024-08-02] MEDS: oxyCODONE HCL (*CRX) 2.5 MG TAB IR PO ×5 (03:12→17:09)
[2024-08-02 07:08] LABS: Hematocrit 31.5 % (42.0-52.0); Hemoglobin 10.5 g/dL (14.0-18.0); Immature Platelet Fraction Pct 7.8 % (0.9-11.2); Mean Corpuscular HGB Conc 33.3 g/dl (32-36); Mean Corpuscular Hemoglobin 32.4 pg (26-34); Mean Corpuscular Volume 97.2 fl (80-100); Mean Platelet Volume 11.4 fl (7.4-10.4); Platelet Count Result 89 k/mm3 (150-375); Red Blood Count 3.24 M/mm3 (4.6-6.20); Red Cell Distribution Width 16.1 % (11.5-14.5); White Blood Count 10.1 K/mm3 (4.5-10.0)
[2024-08-02 07:39] LABS: Alanine Aminotransferase 39 U/L (6-50); Albumin Level 2.7 g/dL (3.5-5.1); Alkaline Phosphatase 202 U/L (38-126); Anion Gap 7 mmol/L (4-12); Aspartate Amino Transferase 125 U/L (17-59); Blood Urea Nitrogen 13 mg/dL (9-20); Calcium 8.2 mg/dL (8.4-10.2); Carbon Dioxide 33 mmol/L (22-30); Chloride 88 mmol/L (98-107); Estimated CRCL calculation 90 ml/min; Estimated Glomerular Filt Rate > 60; Glucose 119 mg/dL (65-110); Potassium 3.3 mmol/L (3.4-5.0); Sodium 128 mmol/L (137-145)
[2024-08-02 07:42] LABS: Anisocytosis 1+; Band Neutrophils Percent 8 % (0-6); Lymphocytes Percent Manual 3 % (18-44); Monocytes Percent Manual 6 % (3-9); Neutrophils Absolute Manual 9.19 K/mm3 (1.3-6.7); Neutrophils Percent Manual 83 % (46-73); Platelet Estimate Decreased (Adequate); Schistocytes None Seen; Total Cells Counted 100
--- NOTE | 2024-08-02 07:44 | P.PNAN_ITS ---
Anes - Prog Note Post-Op Date/Time: 08/02/24 07:44 Cardiovascular status: normal Respiratory status: normal Airway patency: baseline Mental status: baseline Post-Op hydration status: normal Vital Signs: Last Vital Signs Temp 37.1 C 08/02/24 03:16 Pulse 97 08/02/24 03:16 Resp 20 08/02/24 03:16 BP 105/38 L 08/02/24 03:16 Pulse Ox 95 08/02/24 03:16 O2 Del Method Nasal Cannula 08/01/24 14:25 O2 Flow Rate 2 08/01/24 14:25 Pain Score (VAS): 0 I/O: Intake & Output 08/01/24 08/01/24 08/02/24 15:59 23:59 07:59 Intake Total 600 880 550 Output Total 450 400 850 Balance 150 480 -300 Laboratory Tests 08/02/24 06:27 08/02/24 06:27 08/01/24 08/02/24 14:30 06:27 WBC 10.1 H RBC 3.24 L Hgb 10.5 L Hct 31.5 L MCV 97.2 MCH 32.4 MCHC 33.3 RDW 16.1 H Plt Count 89 L MPV 11.4 H Immature Gran % (Auto) Not Reportable Neut % (Auto) Not Reportable Lymph % (Auto) Not Reportable [place] % (Auto) Not Reportable Eos % (Auto) Not Reportable Baso % (Auto) Not Reportable Lymph # (Auto) Not Reportable [place] # (Auto) Not Reportable Eos # (Auto) Not Reportable Baso # (Auto) Not Reportable Abs Immat Gran (auto) Not Reportable Absolute Neuts (auto) Not Reportable Absolute Nucleated RBC Not Reportable Total Counted 100 Neutrophils % (Manual) 83 H Band Neutrophils % 8 H Lymphocytes % (Manual) 3 L Monocytes % (Manual) 6 Nucleated RBC % Not Reportable Abs Neuts (Manual) 9.19 H Abs Lymphs (Manual) 0.30 L Abs Monocytes (Manual) 0.60 Platelet Estimate Decreased % Immature Plt Fraction 7.8 Anisocytosis 1+ Schistocytes None seen Sodium 128 L Potassium 3.3 L Chloride 88 L Carbon Dioxide 33 H Anion Gap 7 BUN 13 Creatinine 0.60 L Estim Creat Clear Calc 90 Estimated GFR > 60 Glucose 119 H POC Capillary Glucose 141 H Calcium 8.2 L Total Bilirubin 3.0 H AST 125 H ALT 39 Alkaline Phosphatase 202 H Total Protein 6.0 L Albumin 2.7 L Patient Feedback: Patient satisfied with anesthetic care.
--- NOTE | 2024-08-02 07:45 | PM.IMPN ---
Progress Note: A&P Assessment and Plan (1) Closed trimalleolar fracture of ankle: Code(s): S82.853A - Displaced trimalleolar fracture of unspecified lower leg, initial encounter for closed fracture Status: Acute Assessment and Plan: status post ORIF - Ortho consulted - nonweightbearing right lower extremity - Pain meds in bowel protocol - PT/OT treatment on evaluation (2) Cirrhosis of liver: Code(s): K74.60 - Unspecified cirrhosis of liver Status: Acute Assessment and Plan: - Possibly related to alcohol abuse. - Continue spironolactone and lactulose - Monitor for decompensation. [facility] protocol (3) COPD (chronic obstructive pulmonary disease): Code(s): J44.9 - Chronic obstructive pulmonary disease, unspecified Status: Acute Assessment and Plan: - Appears stable. - Bronchodilators PRN. (4) Hyponatremia: Code(s): E87.1 - Hypo-osmolality and hyponatremia Status: Acute Assessment and Plan: appears to be chronic, could be due alcohol use - Continue to monitor closely. - restarted Lasix. BMP with Mag and phos ordered for the a.m. (5) Hypokalemia: Code(s): E87.6 - Hypokalemia Status: Acute Assessment and Plan: - Replaced. - Monitor levels closely. (6) Normochromic normocytic anemia: Code(s): D64.9 - Anemia, unspecified Status: Acute Assessment and Plan: - Possibly related to alcohol abuse. - Iron studies pending. - Monitor Hgb closely. (7) Depression: Code(s): F32.A - Depression, unspecified Status: Acute Assessment and Plan: - Continue sertraline. Plan patient possibly going through withdrawal with delirium, unable to follow weight-bearing status per PT and OT Time Spent With Patient Time with patient: Greater than 35 minutes Subjective Date/time seen: 08/02/24 07:45 Interval history: Patient admitted after a fall incident at home, sustaining a right ankle fracture. Patient stated that he was walking in the yard when he rolled his right ankle resulting in a deformity. Patient had a blood alcohol level of 289 mg/dl on admission, though he denied alcohol use. right ankle fracture s/p ORIF 08/02 with Orthopedics, patient transition to oral antibiotics today, patient will need to be seen by PT OT for discharge recommendations, per PT and OT patient cannot follow instructions on nonweightbearing status. Per nursing the patient is getting increasingly agitated and restless. Ethanol level on arrival was 289. Will treat patient for alcohol withdrawal so Review of Systems Review of Systems: fall, right ankle pain. All systems reviewed & are unremarkable except as noted in HPI and below Exam Narrative: HEENT: Atraumatic, PERRL, EOM, moist mucus membranes. Neck: Supple. Lungs: Clear bilaterally. Heart: RRR, no murmurs. Abdomen: Soft, non-tender, non-distended, +ve bowel sounds X4 quadrants. Extremities: No edema, splint to Right Ankle, good sensations to right foot and left foot. Skin: Warm and dry with no lesions. Neuro: confused impulsive, no focal neuro deficits noted. Psych: confused impulsive Const: General: comfortable, no acute distress, well developed, alert, awake and average body habitus Nutritional Appearance: average body habitus Orientation/consciousness: patient oriented x3 HENMT: Head: normal to inspection, normocephalic and atraumatic Ears: hearing grossly normal bilaterally Face/Nose/Sinus: normal facial exam Face and sinus: normal facial exam Eyes: General: appearance normal, both eyes and all related structures Pupils: Equal, round and reactive pupils present EOM: EOMs intact bilaterally Neck: Neck: full ROM, no lymphadenopathy and no JVD Thyroid: thyroid normal Lymphatic: no lymphadenopathy noted Resp: Effort & Inspection: normal respiratory effort and able to speak in complete sentences Auscultation: clear to auscultation bilaterally Cardio: Jugular venous distension: no JVD Rate: regular rate Rhythm: regular rhythm Heart sounds: S1 normal heart sound present and S2 normal heart sound present : General: Yes deferred Skin: Rashes: no rashes Wounds: no wounds Neuro: General: patient oriented x3, CN's II-XI intact bilaterally and Unable to assess gait Cranial nerves: Yes CN's II-XII intact bilaterally and Yes Equal, round and reactive pupils present Cognition (Neuro): normal cognition Speech: normal speech Gait exam (Neuro): Normal gait present and Unable to assess gait Motor exam (neuro): 5/5 motor strength present throughout Extrem: General: normal to inspection, full ROM, no joint enlargement and no pedal edema Right lower extremity: ankle Details: abnormal ROM and other (brace in place) Objective Data Vital Signs Vital Signs: Vital Signs - 24 hr 08/01/24 10:00 08/01/24 10:18 08/01/24 13:27 Temperature 97.2 F L 97.1 F L Pulse Rate 88 90 Respiratory Rate 16 17 Blood Pressure 124/45 L 124/49 L 118/53 L Pulse Oximetry 100 100 Oxygen Delivery Room Air Simple Face Mask Oxygen Flow Rate 8 08/01/24 13:40 08/01/24 13:45 08/01/24 13:55 Temperature Pulse Rate 97 95 100 Respiratory Rate 20 18 16 Blood Pressure 122/55 L 129/57 L 99/71 L Pulse Oximetry 100 100 93 Oxygen Delivery Simple Face Mask Simple Face Mask Room Air Oxygen Flow Rate 8 8 08/01/24 14:10 08/01/24 14:25 08/01/24 14:52 Temperature 96.9 F L Pulse Rate 101 H 101 H 86 Respiratory Rate 18 22 H 18 Blood Pressure 119/61 133/62 133/57 L Pulse Oximetry 94 91 100 Oxygen Delivery Nasal Cannula Nasal Cannula Oxygen Flow Rate 2 2 08/01/24 14:37 08/01/24 15:22 08/01/24 16:22 Temperature 97.1 F L 96.6 F L 96.2 F L Pulse Rate 88 88 88 Respiratory Rate 18 18 18 Blood Pressure 122/49 L 120/48 L 131/59 L Pulse Oximetry 93 93 94 Oxygen Delivery Oxygen Flow Rate 08/01/24 20:18 08/02/24 00:22 08/02/24 03:16 Temperature 97.8 F 97.8 F 98.7 F Pulse Rate 100 92 97 Respiratory Rate 16 16 20 Blood Pressure 117/66 126/64 105/38 L Pulse Oximetry 94 98 95 Oxygen Delivery Oxygen Flow Rate Intake/Output Intake/Output: Intake & Output 07/30/24 07/31/24 08/01/24 08/02/24 23:59 23:59 23:59 23:59 Intake Total 500 2092 1530 550 Output Total 500 850 850 Balance 500 1592 680 -300 Meds/Results Medications: Active Medications Generic Name Dose Route Start Last Admin Trade Name Freq PRN Reason Stop Dose Admin Albuterol 2 puff 07/31/24 08:07 Albuterol Sulfate (*Sp) Aerosol 1 Puff INHALATION Q4H PRN SOB/Wheezing Cefdinir 300 mg 08/02/24 09:00 Cefdinir 300 Mg Capsule PO 08/08/24 21:01 Q12HR [facility] Doxycycline Hyclate 100 mg 08/02/24 09:00 Doxycycline Hyclate 100 Mg Tablet PO Q12HR [facility] Famotidine 20 mg 08/01/24 21:00 08/01/24 21:15 Famotidine 20 Mg Tablet PO 20 mg Q12HR THA Administration Finasteride 5 mg 07/31/24 09:00 08/01/24 07:29 Finasteride 5 Mg Tablet PO Not Given DAILY [facility] Cefazolin Sodium 2 gm in 50 mls @ 100 mls/hr 08/01/24 19:00 08/02/24 03:10 Ancef 2 Gm/D5w 50 Ml IVPB 08/02/24 11:29 100 mls/hr Q8H THA Administration Vancomycin HCl 1,000 mg in 250 mls @ 250 mls/hr 08/01/24 22:00 08/01/24 23:10 Vancomycin 1,000 Mg/Ns 250 Ml IVPB 08/02/24 10:59 250 mls/hr Q12H [facility] Administration Lactulose 6.67 gm 07/31/24 09:00 08/01/24 08:11 Lactulose 20 Gm/30 Ml Udc PO 6.67 gm DAILY [facility] Administration Loratadine 10 mg 07/31/24 21:00 08/01/24 21:15 Loratadine 10 Mg Tablet PO 10 mg HS THA Administration Magnesium Oxide 400 mg 08/02/24 12:00 Magnesium Oxide 400 Mg Tablet PO DAILY@1200 [facility] Morphine Sulfate 2 mg 08/01/24 14:37 Morphine Sulfate (*Crx) 2 Mg/Ml Inj IV PUSH Q2H PRN Breakthrough Pain Rated 4-6 or NPO Naloxone HCl 0.1 mg 08/01/24 14:37 Naloxone Hcl 0.4 Mg/Ml Vial IV PUSH Q2M PRN Opiate Reversal Ondansetron HCl 4 mg 08/01/24 14:37 Ondansetron Inj 4 Mg/2 Ml Vial IV PUSH Q4H PRN Nausea And Vomiting Oxycodone HCl 2.5 mg 08/01/24 17:00 08/02/24 06:04 Oxycodone Hcl (*Crx) 2.5 Mg Tab Ir PO 2.5 mg Q4HR THA Administration Oxycodone HCl 2.5 mg 08/01/24 14:37 Oxycodone Hcl (*Crx) 2.5 Mg Tab Ir PO Q4H PRN Pain Rated 4-6 Polyethylene Glycol 17 gm 08/02/24 09:00 Polyethylene Glycol 3350 17 Gm Powd.Pack PO QAM THA Senna/Docusate Sodium 2 tab 08/01/24 17:00 08/01/24 16:56 Senna/Docusate Sodium Tablet PO 2 tab BID THA Administration Sertraline HCl 50 mg 07/31/24 09:00 08/01/24 08:11 Sertraline Hcl 50 Mg Tablet PO 50 mg DAILY THA Administration Spironolactone 100 mg 07/31/24 09:00 08/01/24 07:30 Spironolactone 50 Mg Tablet PO Not Given DAILY THA Radiology Results: ITS Impressions Ankle X-Ray 07/30/24 20:25 IMPRESSION: Improved alignment post reduction, as detailed. Chest X-Ray 07/30/24 20:27 IMPRESSION: No focal infiltrate or effusion. Ankle CT 07/30/24 23:52 IMPRESSION: Trimalleolar fracture of the right ankle, as detailed above. Intraoperative X-Ray 08/01/24 14:04 IMPRESSION: 1. Trimalleolar ankle fracture status post open reduction internal fixation. Labs Labs: Laboratory Results - last 24 hr 08/01/24 08/02/24 14:30 06:27 WBC 10.1 H RBC 3.24 L Hgb 10.5 L Hct 31.5 L MCV 97.2 MCH 32.4 MCHC 33.3 RDW 16.1 H Plt Count 89 L MPV 11.4 H Immature Gran % (Auto) Not Reportable Neut % (Auto) Not Reportable Lymph % (Auto) Not Reportable [place] % (Auto) Not Reportable Eos % (Auto) Not Reportable Baso % (Auto) Not Reportable Lymph # (Auto) Not Reportable [place] # (Auto) Not Reportable Eos # (Auto) Not Reportable Baso # (Auto) Not Reportable Abs Immat Gran (auto) Not Reportable Absolute Neuts (auto) Not Reportable Absolute Nucleated RBC Not Reportable Total Counted 100 Neutrophils % (Manual) 83 H Band Neutrophils % 8 H Lymphocytes % (Manual) 3 L Monocytes % (Manual) 6 Nucleated RBC % Not Reportable Abs Neuts (Manual) 9.19 H Abs Lymphs (Manual) 0.30 L Abs Monocytes (Manual) 0.60 Platelet Estimate Decreased % Immature Plt Fraction 7.8 Anisocytosis 1+ Schistocytes None seen Sodium 128 L Potassium 3.3 L Chloride 88 L Carbon Dioxide 33 H Anion Gap 7 BUN 13 Creatinine 0.60 L Estim Creat Clear Calc 90 Estimated GFR > 60 Glucose 119 H POC Capillary Glucose 141 H Calcium 8.2 L Total Bilirubin 3.0 H AST 125 H ALT 39 Alkaline Phosphatase 202 H Total Protein 6.0 L Albumin 2.7 L Quality VTE Prophylaxis VTE prophylaxis: mechanical ordered If No VTE Prophylaxis Answer both mechanical and pharmacologic: Reason no mechanical VTE proph: medical contraindication ( low platelets) Hospitalist MIPS Advance Care Plan I have confirmed that the patient's Advanced Care Plan is present, code status is documented, or surrogate decision maker is listed in patient medical record.: Yes Medication Reconciliation I have utilized all available resources to obtain, update and review the patients current medications (includes all prescriptions, OTC, herbals, cannabis, and nutritional supplements).: Yes
--- NOTE | 2024-08-02 08:00 | PM.PNORT ---
Subjective Subjective Date/Time Seen: 08/02/24 08:00 Interval history: Postop day 1 patient is alert. He is having minimal pain in the ankle. Splint is intact comfortable. He is able wiggle his toes. Hematology has been consulted for recommendation of DVT prophylaxis due to the patient's cirrhosis as well as his chronic low platelet count. Care coordination has been consulted to work on rehab facility. It is not going to be a safe situation have the patient go home. Patient's daughter would like him to go to rehab facility as well. It is going to be a minimum of 6 weeks before patient is able to bear any weight on his right leg. Morning labs were reviewed. Patient is still hyponatremic. Liver enzymes have improved slightly. Platelets are at 89,000. I did order a vitamin-D 25 hydroxy this morning. Objective Data Vital Signs Vital Signs: Vital Signs - 24 hr 08/01/24 10:00 08/01/24 10:18 08/01/24 13:27 Temperature 97.2 F L 97.1 F L Pulse Rate 88 90 Respiratory Rate 16 17 Blood Pressure 124/45 L 124/49 L 118/53 L Pulse Oximetry 100 100 Oxygen Delivery Room Air Simple Face Mask Oxygen Flow Rate 8 08/01/24 13:40 08/01/24 13:45 08/01/24 13:55 Temperature Pulse Rate 97 95 100 Respiratory Rate 20 18 16 Blood Pressure 122/55 L 129/57 L 99/71 L Pulse Oximetry 100 100 93 Oxygen Delivery Simple Face Mask Simple Face Mask Room Air Oxygen Flow Rate 8 8 08/01/24 14:10 08/01/24 14:25 08/01/24 14:52 Temperature 96.9 F L Pulse Rate 101 H 101 H 86 Respiratory Rate 18 22 H 18 Blood Pressure 119/61 133/62 133/57 L Pulse Oximetry 94 91 100 Oxygen Delivery Nasal Cannula Nasal Cannula Oxygen Flow Rate 2 2 08/01/24 14:37 08/01/24 15:22 08/01/24 16:22 Temperature 97.1 F L 96.6 F L 96.2 F L Pulse Rate 88 88 88 Respiratory Rate 18 18 18 Blood Pressure 122/49 L 120/48 L 131/59 L Pulse Oximetry 93 93 94 Oxygen Delivery Oxygen Flow Rate 08/01/24 20:18 08/02/24 00:22 08/02/24 03:16 Temperature 97.8 F 97.8 F 98.7 F Pulse Rate 100 92 97 Respiratory Rate 16 16 20 Blood Pressure 117/66 126/64 105/38 L Pulse Oximetry 94 98 95 Oxygen Delivery Oxygen Flow Rate Intake/Output Intake/Output: Intake & Output 07/30/24 07/31/24 08/01/24 08/02/24 23:59 23:59 23:59 23:59 Intake Total 500 2092 1530 550 Output Total 500 850 850 Balance 500 1592 680 -300 Meds/Results Medications: Active Medications Generic Name Dose Route Start Last Admin Trade Name Freq PRN Reason Stop Dose Admin Albuterol 2 puff 07/31/24 08:07 Albuterol Sulfate (*Sp) Aerosol 1 Puff INHALATION Q4H PRN SOB/Wheezing Cefdinir 300 mg 08/02/24 09:00 Cefdinir 300 Mg Capsule PO 08/08/24 21:01 Q12HR THA Doxycycline Hyclate 100 mg 08/02/24 09:00 Doxycycline Hyclate 100 Mg Tablet PO Q12HR THA Famotidine 20 mg 08/01/24 21:00 08/01/24 21:15 Famotidine 20 Mg Tablet PO 20 mg Q12HR THA Administration Finasteride 5 mg 07/31/24 09:00 08/01/24 07:29 Finasteride 5 Mg Tablet PO Not Given DAILY THA Furosemide 40 mg 08/02/24 09:00 Furosemide 40 Mg Tablet PO DAILY THA Cefazolin Sodium 2 gm in 50 mls @ 100 mls/hr 08/01/24 19:00 08/02/24 03:10 Ancef 2 Gm/D5w 50 Ml IVPB 08/02/24 11:29 100 mls/hr Q8H THA Administration Vancomycin HCl 1,000 mg in 250 mls @ 250 mls/hr 08/01/24 22:00 08/01/24 23:10 Vancomycin 1,000 Mg/Ns 250 Ml IVPB 08/02/24 10:59 250 mls/hr Q12H THA Administration Lactulose 6.67 gm 07/31/24 09:00 08/01/24 08:11 Lactulose 20 Gm/30 Ml Udc PO 6.67 gm DAILY THA Administration Loratadine 10 mg 07/31/24 21:00 08/01/24 21:15 Loratadine 10 Mg Tablet PO 10 mg HS THA Administration Magnesium Oxide 400 mg 08/02/24 12:00 Magnesium Oxide 400 Mg Tablet PO DAILY@1200 [facility] Morphine Sulfate 2 mg 08/01/24 14:37 Morphine Sulfate (*Crx) 2 Mg/Ml Inj IV PUSH Q2H PRN Breakthrough Pain Rated 4-6 or NPO Naloxone HCl 0.1 mg 08/01/24 14:37 Naloxone Hcl 0.4 Mg/Ml Vial IV PUSH Q2M PRN Opiate Reversal Ondansetron HCl 4 mg 08/01/24 14:37 Ondansetron Inj 4 Mg/2 Ml Vial IV PUSH Q4H PRN Nausea And Vomiting Oxycodone HCl 2.5 mg 08/01/24 17:00 08/02/24 06:04 Oxycodone Hcl (*Crx) 2.5 Mg Tab Ir PO 2.5 mg Q4HR THA Administration Oxycodone HCl 2.5 mg 08/01/24 14:37 Oxycodone Hcl (*Crx) 2.5 Mg Tab Ir PO Q4H PRN Pain Rated 4-6 Polyethylene Glycol 17 gm 08/02/24 09:00 Polyethylene Glycol 3350 17 Gm Powd.Pack PO QAM [facility] Senna/Docusate Sodium 2 tab 08/01/24 17:00 08/01/24 16:56 Senna/Docusate Sodium Tablet PO 2 tab BID THA Administration Senna/Docusate Sodium 1 tab 08/02/24 09:00 Senna/Docusate Sodium Tablet PO DAILY [facility] Sertraline HCl 50 mg 07/31/24 09:00 08/01/24 08:11 Sertraline Hcl 50 Mg Tablet PO 50 mg DAILY [facility] Administration Spironolactone 100 mg 07/31/24 09:00 08/01/24 07:30 Spironolactone 50 Mg Tablet PO Not Given DAILY [facility] Radiology Results: ITS Impressions Ankle X-Ray 07/30/24 20:25 IMPRESSION: Improved alignment post reduction, as detailed. Chest X-Ray 07/30/24 20:27 IMPRESSION: No focal infiltrate or effusion. Ankle CT 07/30/24 23:52 IMPRESSION: Trimalleolar fracture of the right ankle, as detailed above. Intraoperative X-Ray 08/01/24 14:04 IMPRESSION: 1. Trimalleolar ankle fracture status post open reduction internal fixation. Labs Labs: Laboratory Results - last 24 hr 08/01/24 08/02/24 14:30 06:27 WBC 10.1 H RBC 3.24 L Hgb 10.5 L Hct 31.5 L MCV 97.2 MCH 32.4 MCHC 33.3 RDW 16.1 H Plt Count 89 L MPV 11.4 H Immature Gran % (Auto) Not Reportable Neut % (Auto) Not Reportable Lymph % (Auto) Not Reportable [place] % (Auto) Not Reportable Eos % (Auto) Not Reportable Baso % (Auto) Not Reportable Lymph # (Auto) Not Reportable [place] # (Auto) Not Reportable Eos # (Auto) Not Reportable Baso # (Auto) Not Reportable Abs Immat Gran (auto) Not Reportable Absolute Neuts (auto) Not Reportable Absolute Nucleated RBC Not Reportable Total Counted 100 Neutrophils % (Manual) 83 H Band Neutrophils % 8 H Lymphocytes % (Manual) 3 L Monocytes % (Manual) 6 Nucleated RBC % Not Reportable Abs Neuts (Manual) 9.19 H Abs Lymphs (Manual) 0.30 L Abs Monocytes (Manual) 0.60 Platelet Estimate Decreased % Immature Plt Fraction 7.8 Anisocytosis 1+ Schistocytes None seen Sodium 128 L Potassium 3.3 L Chloride 88 L Carbon Dioxide 33 H Anion Gap 7 BUN 13 Creatinine 0.60 L Estim Creat Clear Calc 90 Estimated GFR > 60 Glucose 119 H POC Capillary Glucose 141 H Calcium 8.2 L Total Bilirubin 3.0 H AST 125 H ALT 39 Alkaline Phosphatase 202 H Total Protein 6.0 L Albumin 2.7 L
[2024-08-02] MEDS: LACTULOSE 20 GM/30 ML UDC 6.67 GM PO (08:48)
[2024-08-02] MEDS: POTASSIUM CHLORIDE 20 MEQ ER TABLET PO (08:49)
[2024-08-02] MEDS: FUROSEMIDE 40 MG TABLET PO (08:50)
[2024-08-02] MEDS: CEFDINIR 300 MG CAPSULE PO (08:50)
[2024-08-02] MEDS: FINASTERIDE 5 MG TABLET PO (08:50)
[2024-08-02] MEDS: FAMOTIDINE 20 MG TABLET PO (08:51)
[2024-08-02] MEDS: SPIRONOLACTONE 50 MG TABLET 100 MG PO (08:51)
[2024-08-02] MEDS: SERTRALINE HCL 50 MG TABLET PO (08:51)
[2024-08-02] MEDS: DOXYCYCLINE HYCLATE 100 MG TABLET PO (08:51)
[2024-08-02] MEDS: SENNA/DOCUSATE SODIUM TABLET 2 TAB PO ×2 (08:53→17:09)
[2024-08-02] MEDS: polyethylene glycoL 3350 17 GM POWD.PACK PO (08:54)
[2024-08-02] MEDS: VANCOMYCIN 1,000 MG/NS 250 ML 1,000 MG/250 ML BAG 250 MG IVPB (09:02)
[2024-08-02 11:09] LABS: Vitamin D 25 Hydroxy 55.2 ng/mL
[2024-08-02] MEDS: MAGNESIUM OXIDE 400 MG TABLET PO (12:05)
[2024-08-02] MEDS: LORazepam INJ (*CRX) 2 MG/ML VIAL IV PUSH (14:15)
[2024-08-02] MEDS: chlordiazePOXIDE (*CRX) 25 MG CAPSULE PO (17:09)
[2024-08-02 17:13] LABS: Glucose Point of Care 89 mg/dl (65-105)
[2024-08-02] MEDS: HEPARIN SODIUM 5,000 UNITS/ML VIAL 5000 UNITS SUB-Q (20:45)
[2024-08-03] VITALS (7 sets, daily range): BP systolic 91–118; BP diastolic 46–61; PULSE 62–100; RESP 12–20; TEMP 35.6–36.8; O2SAT 94–97
[2024-08-03] LABS: Glucose Point of Care 96 mg/dl (65-105)
[2024-08-03] MEDS: oxyCODONE HCL (*CRX) 2.5 MG TAB IR PO ×2 (03:54→11:30)
[2024-08-03] MEDS: chlordiazePOXIDE (*CRX) 25 MG CAPSULE PO ×2 (03:54→11:30)
[2024-08-03 05:23] LABS: Glucose Point of Care 97 mg/dl (65-105)
[2024-08-03 06:59] LABS: Hematocrit 29.2 % (42.0-52.0); Hemoglobin 9.6 g/dL (14.0-18.0); Immature Platelet Fraction Pct 7.9 % (0.9-11.2); Mean Corpuscular HGB Conc 32.9 g/dl (32-36); Mean Corpuscular Hemoglobin 32.1 pg (26-34); Mean Corpuscular Volume 97.7 fl (80-100); Mean Platelet Volume 11.2 fl (7.4-10.4); Platelet Count Result 93 k/mm3 (150-375); Red Blood Count 2.99 M/mm3 (4.6-6.20); Red Cell Distribution Width 16.7 % (11.5-14.5); White Blood Count 6.9 K/mm3 (4.5-10.0)
[2024-08-03 07:06] LABS: Anion Gap 5 mmol/L (4-12); Blood Urea Nitrogen 19 mg/dL (9-20); Calcium 8.1 mg/dL (8.4-10.2); Carbon Dioxide 32 mmol/L (22-30); Chloride 91 mmol/L (98-107); Estimated CRCL calculation 69 ml/min; Estimated Glomerular Filt Rate > 60; Glucose 88 mg/dL (65-110); Potassium 3.2 mmol/L (3.4-5.0); Sodium 128 mmol/L (137-145)
[2024-08-03] MEDS: LACTULOSE 20 GM/30 ML UDC 6.67 GM PO (08:16)
[2024-08-03] MEDS: polyethylene glycoL 3350 17 GM POWD.PACK PO (08:16)
[2024-08-03] MEDS: THIAMINE HCL 200 MG/2 ML VIAL 100 MG IV PUSH (08:16)
[2024-08-03] MEDS: SERTRALINE HCL 50 MG TABLET PO (08:17)
[2024-08-03] MEDS: FINASTERIDE 5 MG TABLET PO (08:17)
[2024-08-03] MEDS: FUROSEMIDE 40 MG TABLET PO (08:17)
[2024-08-03] MEDS: SENNA/DOCUSATE SODIUM TABLET 2 TAB PO (08:17)
[2024-08-03] MEDS: FAMOTIDINE 20 MG TABLET PO ×2 (08:17→21:42)
[2024-08-03] MEDS: CEFDINIR 300 MG CAPSULE PO ×2 (08:17→21:42)
[2024-08-03] MEDS: HEPARIN SODIUM 5,000 UNITS/ML VIAL 5000 UNITS SUB-Q ×2 (08:18→21:42)
[2024-08-03] MEDS: SPIRONOLACTONE 50 MG TABLET 100 MG PO (08:18)
--- NOTE | 2024-08-03 09:04 | PC.NURSE ---
Patient resting comfortably, prone with foot elevated. He is alert to voice but remains sleepy. Complaints or signs of pain, distress, or withdrawl. Patient just wants to rest. Call light, water, glasses, and kleenex within reach.
[2024-08-03] MEDS: MAGNESIUM OXIDE 400 MG TABLET PO (11:46)
--- NOTE | 2024-08-03 12:27 | PC.NURSE ---
Patient re-situated in bed, sitting up, and attempting to eat lunch after tray was set up and with much encouragement. Patient still drowsy with 9/10 pain. Family at bedside. Foot elevated on pillows. CIWA score zero.
[2024-08-03 12:45] LABS: Glucose Point of Care 113 mg/dl (65-105)
--- NOTE | 2024-08-03 14:24 | P.PNOP_ITS ---
Progress Note: A&P Assessment and Plan (1) Trimalleolar fracture of right ankle: Qualifiers: Encounter type: initial encounter Fracture type: closed Qualified Code(s): S82.851A - Displaced trimalleolar fracture of right lower leg, initial encounter for closed fracture Code(s): S82.851A - Displaced trimalleolar fracture of right lower leg, initial encounter for closed fracture Status: Acute Assessment and Plan: Postop day 2. After open reduction internal fixation trimalleolar ankle fracture. Patient is more confused today. He is slow to arouse but did arouse completely but he is disoriented. His splint is intact. Is restless in the bed and not keeping the leg elevated on pillows very well. He has lorazepam ordered her prophylaxis against delirium tremens. He has not needed it yet apparently. Has been receiving thigh min. 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 I am going to recommend that he be protected for 6 weeks because he will be nonweightbearing for 6 weeks. Hospitalist did start him on heparin 5000 mg b.i.d. which seems like an excellent for right now until we have the recommendation by the margarine churn operator. Subjective Subjective Date/Time Seen: 08/03/24 14:24 Objective Data Vital Signs Vital Signs: Vital Signs - 24 hr 08/02/24 16:22 08/02/24 20:00 08/02/24 20:00 Temperature 36.4 C L Pulse Rate 110 H Pulse Rate [Right Popliteal Palpation] Respiratory Rate 14 Blood Pressure 138/62 96/40 L Pulse Oximetry 97 Oxygen Delivery Room Air 08/02/24 21:18 08/03/24 00:00 08/03/24 04:00 Temperature 36.3 C L 36.2 C L 36.2 C L Pulse Rate 95 100 83 Pulse Rate [Right Popliteal Palpation] Respiratory Rate 12 14 12 Blood Pressure 113/49 L 100/48 L Pulse Oximetry 93 96 94 Oxygen Delivery 08/03/24 08:00 08/03/24 08:17 08/03/24 12:00 Temperature 36.5 C Pulse Rate 91 Pulse Rate [Right Popliteal Palpation] 62 68 Respiratory Rate 16 Blood Pressure 91/61 L Pulse Oximetry 96 Oxygen Delivery 08/03/24 12:00 Temperature 35.6 C L Pulse Rate 95 Pulse Rate [Right Popliteal Palpation] Respiratory Rate 20 Blood Pressure 109/52 L Pulse Oximetry 94 Oxygen Delivery Intake/Output Intake/Output: Intake & Output 07/31/24 08/01/24 08/02/24 08/03/24 23:59 23:59 23:59 23:59 Intake Total 2092 1530 1090 0 Output Total 500 850 850 Balance 1592 680 240 0 Meds/Results Medications: Active Medications Generic Name Dose Route Start Last Admin Trade Name Freq PRN Reason Stop Dose Admin Albuterol 2 puff 07/31/24 08:07 Albuterol Sulfate (*Sp) Aerosol 1 Puff INHALATION Q4H PRN SOB/Wheezing Cefdinir 300 mg 08/02/24 09:00 08/03/24 08:17 Cefdinir 300 Mg Capsule PO 08/08/24 21:01 300 mg Q12HR THA Administration Chlordiazepoxide HCl 25 mg 08/02/24 18:00 08/03/24 11:30 Chlordiazepoxide (*Crx) 25 Mg Capsule PO 25 mg Q6HR THA Administration Famotidine 20 mg 08/01/24 21:00 08/03/24 08:17 Famotidine 20 Mg Tablet PO 20 mg Q12HR THA Administration Finasteride 5 mg 07/31/24 09:00 08/03/24 08:17 Finasteride 5 Mg Tablet PO 5 mg DAILY THA Administration Furosemide 40 mg 08/02/24 09:00 08/03/24 08:17 Furosemide 40 Mg Tablet PO 40 mg DAILY THA Administration Heparin Sodium (Porcine) 5,000 units 08/02/24 21:00 08/03/24 08:18 Heparin Sodium 5,000 Units/Ml Vial SUB-Q 5,000 units Q12HR THA Administration Lactulose 6.67 gm 07/31/24 09:00 08/03/24 08:16 Lactulose 20 Gm/30 Ml Udc PO 6.67 gm DAILY THA Administration Loratadine 10 mg 07/31/24 21:00 08/03/24 00:33 Loratadine 10 Mg Tablet PO Not Given HS THA Lorazepam 2 mg 08/02/24 14:07 08/02/24 14:15 Lorazepam Inj (*Crx) 2 Mg/Ml Vial IV PUSH 2 mg Q4H PRN Administration CIWA 8-15 Magnesium Oxide 400 mg 08/02/24 12:00 08/03/24 11:46 Magnesium Oxide 400 Mg Tablet PO 400 mg DAILY@1200 THA Administration Morphine Sulfate 2 mg 08/01/24 14:37 Morphine Sulfate (*Crx) 2 Mg/Ml Inj IV PUSH Q2H PRN Breakthrough Pain Rated 4-6 or NPO Naloxone HCl 0.1 mg 08/01/24 14:37 Naloxone Hcl 0.4 Mg/Ml Vial IV PUSH Q2M PRN Opiate Reversal Ondansetron HCl 4 mg 08/01/24 14:37 Ondansetron Inj 4 Mg/2 Ml Vial IV PUSH Q4H PRN Nausea And Vomiting Oxycodone HCl 2.5 mg 08/01/24 14:37 Oxycodone Hcl (*Crx) 2.5 Mg Tab Ir PO Q4H PRN Pain Rated 4-6 Polyethylene Glycol 17 gm 08/02/24 09:00 08/03/24 08:16 Polyethylene Glycol 3350 17 Gm Powd.Pack PO 17 gm QAM THA Administration Senna/Docusate Sodium 2 tab 08/01/24 17:00 08/03/24 08:17 Senna/Docusate Sodium Tablet PO 2 tab BID THA Administration Senna/Docusate Sodium 1 tab 08/02/24 21:00 08/03/24 00:33 Senna/Docusate Sodium Tablet PO Not Given HS THA Sertraline HCl 50 mg 07/31/24 09:00 08/03/24 08:17 Sertraline Hcl 50 Mg Tablet PO 50 mg DAILY THA Administration Spironolactone 100 mg 07/31/24 09:00 08/03/24 08:18 Spironolactone 50 Mg Tablet PO 100 mg DAILY THA Administration Thiamine HCl 100 mg 08/03/24 09:00 08/03/24 08:16 Thiamine Hcl 200 Mg/2 Ml Vial IV PUSH 100 mg DAILY THA Administration Radiology Results: ITS Impressions Ankle X-Ray 07/30/24 20:25 IMPRESSION: Improved alignment post reduction, as detailed. Chest X-Ray 07/30/24 20:27 IMPRESSION: No focal infiltrate or effusion. Ankle CT 07/30/24 23:52 IMPRESSION: Trimalleolar fracture of the right ankle, as detailed above. Intraoperative X-Ray 08/01/24 14:04 IMPRESSION: 1. Trimalleolar ankle fracture status post open reduction internal fixation. Labs Labs: Laboratory Results - last 24 hr 08/02/24 08/02/24 08/03/24 17:10 23:57 05:18 WBC RBC Hgb Hct MCV MCH MCHC RDW Plt Count MPV % Immature Plt Fraction Sodium Potassium Chloride Carbon Dioxide Anion Gap BUN Creatinine Estim Creat Clear Calc Estimated GFR Glucose POC Capillary Glucose 89 96 97 Calcium Phosphorus Magnesium 08/03/24 08/03/24 06:29 12:41 WBC 6.9 RBC 2.99 L Hgb 9.6 L Hct 29.2 L MCV 97.7 MCH 32.1 MCHC 32.9 RDW 16.7 H Plt Count 93 L MPV 11.2 H % Immature Plt Fraction 7.9 Sodium 128 L Potassium 3.2 L Chloride 91 L Carbon Dioxide 32 H Anion Gap 5 BUN 19 Creatinine 0.80 Estim Creat Clear Calc 69 Estimated GFR > 60 Glucose 88 POC Capillary Glucose 113 H Calcium 8.1 L Phosphorus 3.0 Magnesium 2.0
[2024-08-03 15:11] LABS: Ammonia 10 umol/L (9-30)
[2024-08-03 18:15] LABS: Glucose Point of Care 105 mg/dl (65-105)
--- NOTE | 2024-08-03 18:32 | PM.IMPN ---
Progress Note: A&P Assessment and Plan (1) Closed trimalleolar fracture of ankle: Code(s): S82.853A - Displaced trimalleolar fracture of unspecified lower leg, initial encounter for closed fracture Status: Acute Assessment and Plan: -postop day 2 from a ORIF of the right trimalleolar ankle fracture without fixation of posterior lip - Ortho following - nonweightbearing right lower extremity -continue pain control - PT/OT are recommending SNF placement and is considered at least moderate assist on most activity -Case coordination consulted -Continue cefdinir for total of 14 doses per surgery recommendation (2) Cirrhosis of liver: Code(s): K74.60 - Unspecified cirrhosis of liver Status: Acute Assessment and Plan: - Possibly related to alcohol abuse. - Continue spironolactone and lactulose - Monitor for decompensation. -continue CIWA protocol (3) COPD (chronic obstructive pulmonary disease): Code(s): J44.9 - Chronic obstructive pulmonary disease, unspecified Status: Acute Assessment and Plan: - Appears stable. - Bronchodilators PRN. (4) Hyponatremia: Code(s): E87.1 - Hypo-osmolality and hyponatremia Status: Acute Assessment and Plan: -appears to be chronic, could be due to alcohol use - Continue to monitor closely. - restarted Lasix. -Continue to trend -Na+ 128 (5) Hypokalemia: Code(s): E87.6 - Hypokalemia Status: Acute Assessment and Plan: -K+ 3.2 -will give 20 KCL today (6) Normochromic normocytic anemia: Code(s): D64.9 - Anemia, unspecified Status: Acute Assessment and Plan: - Possibly related to alcohol abuse. - Iron studies pending. - Monitor Hgb closely. (7) Depression: Code(s): F32.A - Depression, unspecified Status: Acute Assessment and Plan: - Continue sertraline. Subjective Date/time seen: 08/03/24 18:32 Interval history: Interval history: Patient is postop day 2 from an open reduction internal fixation of a right trimalleolar ankle fracture without fixation of the posterior lip. He is currently nonweightbearing on the right side. PT and OT have been working with him and are recommending SNF placement. Subjective: Patient denies any fever, chills, nausea, vomiting, diarrhea, abdominal pain, chest pain, shortness a breath. Labs and imaging reviewed. Review of Systems Review of Systems: All systems reviewed & are unremarkable except as noted in HPI and below Constitutional: Constitutional: Reports as per HPI and Reports no additional constitutional complaints Eyes: Eyes: Reports as per HPI and Reports no additional eye complaints ENT: Reports system reviewed and no additional complaints, except as documented and Reports as per HPI Cardiovascular: Cardiovascular: Reports as per HPI and Reports no additional cardiovascular complaints Respiratory: Respiratory: Reports as per HPI and Reports no additional respiratory complaints Gastrointestinal: Gastrointestinal: Reports as per HPI and Reports no additional gastrointestinal complaints Genitourinary: Genitourinary: Reports no additional male genitourinary complaints and Reports as per HPI Musculoskeletal: Musculoskeletal: Reports no additional musculoskeletal complaints and Reports as per HPI Integumentary/Breasts: Skin/Breast: Reports system reviewed and no additional complaints, except as docu and Reports as per HPI Neurologic: Reports system reviewed and no additional complaints, except as documented and Reports as per HPI Psychiatric: Psychiatric: Reports no additional psychiatric complaints and Reports as per HPI Exam Narrative: General: In no acute distress Head: atraumatic, no encephalopathy Eyes: PERRLA, sclera clear ENT: moist mucous membranes, nasal passages clear Neck: supple, no JVD, no adenopathy, trachea midline Cardiac: Normal S1 and S2. No murmur, gallops or friction rubs, peripheral pulses intact. Respiratory: Lungs clear to auscultation, no adventitious lung sounds, currently on room air Gastrointestinal: soft, non-distended, non-tender, normoactive bowel sounds. : voiding without difficulty. Extremities: Right lower extremity in cast up to his knee, can wiggle toes on command Skin: clean, dry, intact. No wounds or lesions. Neuro: Alert and oriented x4, cranial nerves intact, no neuro deficits. Psych: normal mood, normal affect, interactive Objective Data Vital Signs Vital Signs: Vital Signs - 24 hr 08/02/24 20:00 08/02/24 20:00 08/02/24 21:18 Temperature 97.4 F L Pulse Rate 95 Pulse Rate [Right Popliteal Palpation] Respiratory Rate 12 Blood Pressure 96/40 L Pulse Oximetry 93 Oxygen Delivery Room Air 08/03/24 00:00 08/03/24 04:00 08/03/24 08:00 Temperature 97.1 F L 97.2 F L 97.7 F Pulse Rate 100 83 91 Pulse Rate [Right Popliteal Palpation] Respiratory Rate 14 12 16 Blood Pressure 113/49 L 100/48 L 91/61 L Pulse Oximetry 96 94 96 Oxygen Delivery 08/03/24 08:17 08/03/24 12:00 08/03/24 12:00 Temperature 96.0 F L Pulse Rate 95 Pulse Rate [Right Popliteal Palpation] 62 68 Respiratory Rate 20 Blood Pressure 109/52 L Pulse Oximetry 94 Oxygen Delivery 08/03/24 16:00 08/03/24 16:00 Temperature 96.7 F L Pulse Rate 96 Pulse Rate [Right Popliteal Palpation] 65 Respiratory Rate 20 Blood Pressure 118/50 L Pulse Oximetry 97 Oxygen Delivery Intake/Output Intake/Output: Intake & Output 07/31/24 08/01/24 08/02/24 08/03/24 23:59 23:59 23:59 23:59 Intake Total 2092 1530 1090 0 Output Total 500 850 850 Balance 1592 680 240 0 Meds/Results Medications: Active Medications Generic Name Dose Route Start Last Admin Trade Name Freq PRN Reason Stop Dose Admin Albuterol 2 puff 07/31/24 08:07 Albuterol Sulfate (*Sp) Aerosol 1 Puff INHALATION Q4H PRN SOB/Wheezing Cefdinir 300 mg 08/02/24 09:00 08/03/24 08:17 Cefdinir 300 Mg Capsule PO 08/08/24 21:01 300 mg Q12HR THA Administration Chlordiazepoxide HCl 25 mg 08/02/24 18:00 08/03/24 17:01 Chlordiazepoxide (*Crx) 25 Mg Capsule PO Not Given Q6HR THA Famotidine 20 mg 08/01/24 21:00 08/03/24 08:17 Famotidine 20 Mg Tablet PO 20 mg Q12HR THA Administration Finasteride 5 mg 07/31/24 09:00 08/03/24 08:17 Finasteride 5 Mg Tablet PO 5 mg DAILY THA Administration Furosemide 40 mg 08/02/24 09:00 08/03/24 08:17 Furosemide 40 Mg Tablet PO 40 mg DAILY THA Administration Heparin Sodium (Porcine) 5,000 units 08/02/24 21:00 08/03/24 08:18 Heparin Sodium 5,000 Units/Ml Vial SUB-Q 5,000 units Q12HR THA Administration Lactulose 6.67 gm 07/31/24 09:00 08/03/24 08:16 Lactulose 20 Gm/30 Ml Udc PO 6.67 gm DAILY THA Administration Loratadine 10 mg 07/31/24 21:00 08/03/24 00:33 Loratadine 10 Mg Tablet PO Not Given HS THA Lorazepam 2 mg 08/02/24 14:07 08/02/24 14:15 Lorazepam Inj (*Crx) 2 Mg/Ml Vial IV PUSH 2 mg Q4H PRN Administration CIWA 8-15 Magnesium Oxide 400 mg 08/02/24 12:00 08/03/24 11:46 Magnesium Oxide 400 Mg Tablet PO 400 mg DAILY@1200 THA Administration Morphine Sulfate 2 mg 08/01/24 14:37 Morphine Sulfate (*Crx) 2 Mg/Ml Inj IV PUSH Q2H PRN Breakthrough Pain Rated 4-6 or NPO Naloxone HCl 0.1 mg 08/01/24 14:37 Naloxone Hcl 0.4 Mg/Ml Vial IV PUSH Q2M PRN Opiate Reversal Ondansetron HCl 4 mg 08/01/24 14:37 Ondansetron Inj 4 Mg/2 Ml Vial IV PUSH Q4H PRN Nausea And Vomiting Oxycodone HCl 2.5 mg 08/01/24 14:37 Oxycodone Hcl (*Crx) 2.5 Mg Tab Ir PO Q4H PRN Pain Rated 4-6 Polyethylene Glycol 17 gm 08/02/24 09:00 08/03/24 08:16 Polyethylene Glycol 3350 17 Gm Powd.Pack PO 17 gm QAM THA Administration Senna/Docusate Sodium 2 tab 08/01/24 17:00 08/03/24 17:00 Senna/Docusate Sodium Tablet PO Not Given BID THA Senna/Docusate Sodium 1 tab 08/02/24 21:00 08/03/24 00:33 Senna/Docusate Sodium Tablet PO Not Given HS THA Sertraline HCl 50 mg 07/31/24 09:00 08/03/24 08:17 Sertraline Hcl 50 Mg Tablet PO 50 mg DAILY THA Administration Spironolactone 100 mg 07/31/24 09:00 08/03/24 08:18 Spironolactone 50 Mg Tablet PO 100 mg DAILY THA Administration Thiamine HCl 100 mg 08/03/24 09:00 08/03/24 08:16 Thiamine Hcl 200 Mg/2 Ml Vial IV PUSH 100 mg DAILY THA Administration Radiology Results: ITS Impressions Ankle X-Ray 07/30/24 20:25 IMPRESSION: Improved alignment post reduction, as detailed. Chest X-Ray 07/30/24 20:27 IMPRESSION: No focal infiltrate or effusion. Ankle CT 07/30/24 23:52 IMPRESSION: Trimalleolar fracture of the right ankle, as detailed above. Intraoperative X-Ray 08/01/24 14:04 IMPRESSION: 1. Trimalleolar ankle fracture status post open reduction internal fixation. Labs Labs: Laboratory Results - last 24 hr 08/02/24 08/03/24 08/03/24 23:57 05:18 06:29 WBC 6.9 RBC 2.99 L Hgb 9.6 L Hct 29.2 L MCV 97.7 MCH 32.1 MCHC 32.9 RDW 16.7 H Plt Count 93 L MPV 11.2 H % Immature Plt Fraction 7.9 Sodium 128 L Potassium 3.2 L Chloride 91 L Carbon Dioxide 32 H Anion Gap 5 BUN 19 Creatinine 0.80 Estim Creat Clear Calc 69 Estimated GFR > 60 Glucose 88 POC Capillary Glucose 96 97 Calcium 8.1 L Phosphorus 3.0 Magnesium 2.0 Ammonia 08/03/24 08/03/24 08/03/24 12:41 14:41 18:10 WBC RBC Hgb Hct MCV MCH MCHC RDW Plt Count MPV % Immature Plt Fraction Sodium Potassium Chloride Carbon Dioxide Anion Gap BUN Creatinine Estim Creat Clear Calc Estimated GFR Glucose POC Capillary Glucose 113 H 105 Calcium Phosphorus Magnesium Ammonia 10 Quality VTE Prophylaxis VTE prophylaxis: mechanical ordered
[2024-08-03] MEDS: POTASSIUM CHLORIDE 20 MEQ ER TABLET PO (21:37)
[2024-08-03] MEDS: LORATADINE 10 MG TABLET PO (21:45)
[2024-08-04 02:00] VITALS: BP 111/46; PULSE 83; RESP 14; TEMP 36.8; O2SAT 90
[2024-08-04 05:53] LABS: Glucose Point of Care 78 mg/dl (65-105)
[2024-08-04 06:00] VITALS: BP 107/49; PULSE 79; RESP 16; TEMP 36.8; O2SAT 92
[2024-08-04] MEDS: chlordiazePOXIDE (*CRX) 25 MG CAPSULE PO (06:04)
[2024-08-04 06:27] LABS: Basophils Percent Auto 0.5 % (0.2-1.2); Eosinophils Absolute Auto 0.1 K/mm3 (0-0.3); Eosinophils Percent Auto 1.8 % (0-4.4); Hematocrit 30.2 % (42.0-52.0); Hemoglobin 9.7 g/dL (14.0-18.0); Immature Granulocyte Absolute 0.03 K/mm3 (0.00-0.031); Immature Granulocyte Percent A 0.5 % (0-0.5); Immature Platelet Fraction Pct 5.7 % (0.9-11.2); Lymphocytes Absolute Auto 0.88 K/mm3 (0.9-3.2); Lymphocytes Percent Auto 15.4 % (18.3-44.2); Mean Corpuscular HGB Conc 32.1 g/dl (32-36); Mean Corpuscular Hemoglobin 31.7 pg (26-34); Mean Corpuscular Volume 98.7 fl (80-100); Mean Platelet Volume 10.4 fl (7.4-10.4); Monocytes Absolute Auto 0.8 K/mm3 (0.1-0.6); Monocytes Percent Auto 14.7 % (2.6-8.5); Neutrophils Absolute Auto 3.8 K/mm3 (1.3-6.7); Neutrophils Percent Auto 67.1 % (45.5-73.1); Platelet Count Result 97 k/mm3 (150-375); Red Blood Count 3.06 M/mm3 (4.6-6.20); Red Cell Distribution Width 16.5 % (11.5-14.5); White Blood Count 5.7 K/mm3 (4.5-10.0)
[2024-08-04 06:44] LABS: Alanine Aminotransferase 24 U/L (6-50); Albumin Level 2.5 g/dL (3.5-5.1); Alkaline Phosphatase 193 U/L (38-126); Anion Gap 9 mmol/L (4-12); Aspartate Amino Transferase 90 U/L (17-59); Bilirubin,Total 3.3 mg/dL (0.2-1.3); Blood Urea Nitrogen 20 mg/dL (9-20); Calcium 8.2 mg/dL (8.4-10.2); Carbon Dioxide 29 mmol/L (22-30); Chloride 93 mmol/L (98-107); Estimated CRCL calculation 90 ml/min; Estimated Glomerular Filt Rate > 60; Glucose 77 mg/dL (65-110); Potassium 3.1 mmol/L (3.4-5.0); Sodium 131 mmol/L (137-145)
[2024-08-04 06:58] LABS: Burr Cells 1+; Platelet Estimate Decreased (Adequate); Schistocytes None Seen
[2024-08-04 09:38] VITALS: BP 99/43; PULSE 87; RESP 18; TEMP 35.7; O2SAT 97
[2024-08-04] MEDS: FAMOTIDINE 20 MG TABLET PO ×2 (09:45→20:15)
[2024-08-04] MEDS: SPIRONOLACTONE 50 MG TABLET 100 MG PO (09:45)
[2024-08-04] MEDS: CEFDINIR 300 MG CAPSULE PO ×2 (09:45→20:15)
[2024-08-04] MEDS: SERTRALINE HCL 50 MG TABLET PO (09:45)
[2024-08-04] MEDS: FINASTERIDE 5 MG TABLET PO (09:45)
[2024-08-04] MEDS: THIAMINE HCL 200 MG/2 ML VIAL 100 MG IV PUSH (09:58)
[2024-08-04 12:08] LABS: Glucose Point of Care 178 mg/dl (65-105)
[2024-08-04] MEDS: MAGNESIUM OXIDE 400 MG TABLET PO (12:08)
[2024-08-04] MEDS: POTASSIUM CHLORIDE 20 MEQ ER TABLET 40 MEQ PO ×2 (12:12→17:41)
[2024-08-04] MEDS: SODIUM CHLORIDE 0.9% IV 1,000 ML 100 ML IV CONT (12:12)
[2024-08-04 14:00] VITALS: BP 118/53; PULSE 87; RESP 18; TEMP 35.6; O2SAT 97
[2024-08-04] MEDS: SACCHAROMYCES BOULARDII 250 MG CAPSULE PO ×2 (14:06→17:42)
--- NOTE | 2024-08-04 15:13 | PM.IMPN ---
Progress Note: A&P Assessment and Plan (1) Closed trimalleolar fracture of ankle: Code(s): S82.853A - Displaced trimalleolar fracture of unspecified lower leg, initial encounter for closed fracture Status: Acute Assessment and Plan: -postop day 3 from a ORIF of the right trimalleolar ankle fracture without fixation of posterior lip - Ortho following - nonweightbearing right lower extremity -continue pain control - PT/OT are recommending SNF placement and is considered at least moderate assist on most activity -Case coordination consulted -Continue cefdinir for total of 14 doses per surgery recommendation -added probiotic today due to loose stools and use of Cefdinir (2) Cirrhosis of liver: Code(s): K74.60 - Unspecified cirrhosis of liver Status: Acute Assessment and Plan: - Possibly related to alcohol abuse. - Continue spironolactone and lactulose - Monitor for decompensation. -continue CIWA protocol, however low suspicion at this time (3) COPD (chronic obstructive pulmonary disease): Code(s): J44.9 - Chronic obstructive pulmonary disease, unspecified Status: Acute Assessment and Plan: - coontinue Bronchodilators PRN. (4) Hyponatremia: Code(s): E87.1 - Hypo-osmolality and hyponatremia Status: Acute Assessment and Plan: -appears to be chronic, could be due to alcohol use - Continue to monitor closely. - restarted Lasix. -Continue to trend -Na+ 131 today (5) Hypokalemia: Code(s): E87.6 - Hypokalemia Status: Acute Assessment and Plan: -K+ 3.1 -will give 40 KCL today and another 40 meq this afternoon (6) Normochromic normocytic anemia: Code(s): D64.9 - Anemia, unspecified Status: Acute Assessment and Plan: - Possibly related to alcohol abuse. - Iron studies pending. - Monitor Hgb closely. (7) Thrombocytopenia: Code(s): D69.6 - Thrombocytopenia, unspecified Status: Acute Assessment and Plan: - likely secondary to alcoholic liver disease -Plt count 97 today, hold off on anticoagulation today, reassess tomorrow. (8) Depression: Code(s): F32.A - Depression, unspecified Status: Acute Assessment and Plan: - Continue sertraline. Time Spent With Patient Time with patient: 25 - 35 minutes Subjective Date/time seen: 08/04/24 15:13 Interval history: Interval history: Patient is postop day 2 from an open reduction internal fixation of a right trimalleolar ankle fracture without fixation of the posterior lip. He is currently nonweightbearing on the right side. PT and OT have been working with him and are recommending SNF placement. Subjective: Denies any new complaints today. He states that he is not having any pain currently. Labs and EMR were reviewed. Review of Systems Review of Systems: All systems reviewed & are unremarkable except as noted in HPI and below Constitutional: Constitutional: Reports as per HPI and Reports no additional constitutional complaints Eyes: Eyes: Reports as per HPI and Reports no additional eye complaints ENT: Reports system reviewed and no additional complaints, except as documented and Reports as per HPI Cardiovascular: Cardiovascular: Reports as per HPI and Reports no additional cardiovascular complaints Respiratory: Respiratory: Reports as per HPI and Reports no additional respiratory complaints Gastrointestinal: Gastrointestinal: Reports as per HPI and Reports no additional gastrointestinal complaints Genitourinary: Genitourinary: Reports no additional male genitourinary complaints and Reports as per HPI Musculoskeletal: Musculoskeletal: Reports no additional musculoskeletal complaints and Reports as per HPI Integumentary/Breasts: Skin/Breast: Reports system reviewed and no additional complaints, except as docu and Reports as per HPI Neurologic: Reports system reviewed and no additional complaints, except as documented and Reports as per HPI Psychiatric: Psychiatric: Reports no additional psychiatric complaints and Reports as per HPI Exam Narrative: General: In no acute distress Cardiac: Normal S1 and S2. No murmur, gallops or friction rubs, peripheral pulses intact. Respiratory: Lungs clear to auscultation, no adventitious lung sounds, currently on room air Gastrointestinal: soft, non-distended, non-tender, normoactive bowel sounds. : voiding without difficulty. Extremities: Right lower extremity in cast up to his knee, can wiggle toes on command Skin: clean, dry, intact. No wounds or lesions. Neuro: Alert and oriented x4, cranial nerves intact, no neuro deficits. Psych: normal mood, normal affect, interactive Objective Data Vital Signs Vital Signs: Vital Signs - 24 hr 08/03/24 16:00 08/03/24 16:00 08/03/24 22:00 Temperature 96.7 F L 98.2 F Pulse Rate 96 96 Pulse Rate [Right Popliteal Palpation] 65 Respiratory Rate 20 16 Blood Pressure 118/50 L 109/46 L Pulse Oximetry 97 96 Oxygen Delivery 08/04/24 02:00 08/04/24 06:00 08/04/24 09:38 Temperature 98.2 F 98.2 F 96.2 F L Pulse Rate 83 79 87 Pulse Rate [Right Popliteal Palpation] Respiratory Rate 14 16 18 Blood Pressure 111/46 L 107/49 L 99/43 L Pulse Oximetry 90 92 97 Oxygen Delivery 08/04/24 09:45 08/04/24 14:00 Temperature 96.1 F L Pulse Rate 87 Pulse Rate [Right Popliteal Palpation] Respiratory Rate 18 Blood Pressure 118/53 L Pulse Oximetry 97 Oxygen Delivery Room Air Intake/Output Intake/Output: Intake & Output 08/01/24 08/02/24 08/03/24 08/04/24 23:59 23:59 23:59 23:59 Intake Total 1530 1090 0 440 Output Total 850 850 350 200 Balance 680 240 -350 240 Meds/Results Medications: Active Medications Generic Name Dose Route Start Last Admin Trade Name Freq PRN Reason Stop Dose Admin Albuterol 2 puff 07/31/24 08:07 Albuterol Sulfate (*Sp) Aerosol 1 Puff INHALATION Q4H PRN SOB/Wheezing Cefdinir 300 mg 08/02/24 09:00 08/04/24 09:45 Cefdinir 300 Mg Capsule PO 08/08/24 21:01 300 mg Q12HR THA Administration Chlordiazepoxide HCl 25 mg 08/02/24 18:00 08/04/24 12:00 Chlordiazepoxide (*Crx) 25 Mg Capsule PO Not Given Q6HR THA Famotidine 20 mg 08/01/24 21:00 08/04/24 09:45 Famotidine 20 Mg Tablet PO 20 mg Q12HR THA Administration Finasteride 5 mg 07/31/24 09:00 08/04/24 09:45 Finasteride 5 Mg Tablet PO 5 mg DAILY THA Administration Furosemide 40 mg 08/02/24 09:00 08/04/24 09:42 Furosemide 40 Mg Tablet PO Not Given DAILY THA Sodium Chloride 1,000 mls @ 100 mls/hr 08/04/24 11:45 08/04/24 12:12 Normal Saline Iv IV CONT 100 mls/hr .Q10H THA Administration Lactulose 6.67 gm 07/31/24 09:00 08/04/24 10:00 Lactulose 20 Gm/30 Ml Udc PO Not Given DAILY THA Loratadine 10 mg 07/31/24 21:00 08/03/24 21:45 Loratadine 10 Mg Tablet PO 10 mg HS THA Administration Lorazepam 2 mg 08/02/24 14:07 08/02/24 14:15 Lorazepam Inj (*Crx) 2 Mg/Ml Vial IV PUSH 2 mg Q4H PRN Administration CIWA 8-15 Magnesium Oxide 400 mg 08/02/24 12:00 08/04/24 12:08 Magnesium Oxide 400 Mg Tablet PO 400 mg DAILY@1200 [facility] Administration Morphine Sulfate 2 mg 08/01/24 14:37 Morphine Sulfate (*Crx) 2 Mg/Ml Inj IV PUSH Q2H PRN Breakthrough Pain Rated 4-6 or NPO Naloxone HCl 0.1 mg 08/01/24 14:37 Naloxone Hcl 0.4 Mg/Ml Vial IV PUSH Q2M PRN Opiate Reversal Ondansetron HCl 4 mg 08/01/24 14:37 Ondansetron Inj 4 Mg/2 Ml Vial IV PUSH Q4H PRN Nausea And Vomiting Oxycodone HCl 2.5 mg 08/01/24 14:37 Oxycodone Hcl (*Crx) 2.5 Mg Tab Ir PO Q4H PRN Pain Rated 4-6 Polyethylene Glycol 17 gm 08/02/24 09:00 08/04/24 10:00 Polyethylene Glycol 3350 17 Gm Powd.Pack PO Not Given QAM [facility] Saccharomyces Boulardii 250 mg 08/04/24 13:00 08/04/24 14:06 Saccharomyces Boulardii 250 Mg Capsule PO 250 mg TID THA Administration Senna/Docusate Sodium 2 tab 08/01/24 17:00 08/04/24 10:00 Senna/Docusate Sodium Tablet PO Not Given BID THA Senna/Docusate Sodium 1 tab 08/02/24 21:00 08/03/24 21:42 Senna/Docusate Sodium Tablet PO Not Given HS THA Sertraline HCl 50 mg 07/31/24 09:00 08/04/24 09:45 Sertraline Hcl 50 Mg Tablet PO 50 mg DAILY THA Administration Spironolactone 100 mg 07/31/24 09:00 08/04/24 09:45 Spironolactone 50 Mg Tablet PO 100 mg DAILY THA Administration Thiamine HCl 100 mg 08/03/24 09:00 08/04/24 09:58 Thiamine Hcl 200 Mg/2 Ml Vial IV PUSH 100 mg DAILY THA Administration Radiology Results: ITS Impressions Ankle X-Ray 07/30/24 20:25 IMPRESSION: Improved alignment post reduction, as detailed. Chest X-Ray 07/30/24 20:27 IMPRESSION: No focal infiltrate or effusion. Ankle CT 07/30/24 23:52 IMPRESSION: Trimalleolar fracture of the right ankle, as detailed above. Intraoperative X-Ray 08/01/24 14:04 IMPRESSION: 1. Trimalleolar ankle fracture status post open reduction internal fixation. Labs Labs: Laboratory Results - last 24 hr 08/03/24 08/04/24 08/04/24 18:10 05:28 06:04 WBC 5.7 RBC 3.06 L Hgb 9.7 L Hct 30.2 L MCV 98.7 MCH 31.7 MCHC 32.1 RDW 16.5 H Plt Count 97 L MPV 10.4 Immature Gran % (Auto) 0.5 Neut % (Auto) 67.1 Lymph % (Auto) 15.4 L [place] % (Auto) 14.7 H Eos % (Auto) 1.8 Baso % (Auto) 0.5 Lymph # (Auto) 0.88 L [place] # (Auto) 0.8 H Eos # (Auto) 0.1 Baso # (Auto) 0.0 Abs Immat Gran (auto) 0.03 Absolute Neuts (auto) 3.8 Absolute Nucleated RBC 0.000 Nucleated RBC % 0.0 Platelet Estimate Decreased % Immature Plt Fraction 5.7 Ranger Cells 1+ Schistocytes None seen Sodium 131 L Potassium 3.1 L Chloride 93 L Carbon Dioxide 29 Anion Gap 9 BUN 20 Creatinine 0.60 L Estim Creat Clear Calc 90 Estimated GFR > 60 Glucose 77 POC Capillary Glucose 105 78 Calcium 8.2 L Total Bilirubin 3.3 H AST 90 H ALT 24 Alkaline Phosphatase 193 H Total Protein 5.0 L Albumin 2.5 L 08/04/24 12:03 WBC RBC Hgb Hct MCV MCH MCHC RDW Plt Count MPV Immature Gran % (Auto) Neut % (Auto) Lymph % (Auto) [place] % (Auto) Eos % (Auto) Baso % (Auto) Lymph # (Auto) [place] # (Auto) Eos # (Auto) Baso # (Auto) Abs Immat Gran (auto) Absolute Neuts (auto) Absolute Nucleated RBC Nucleated RBC % Platelet Estimate % Immature Plt Fraction [place] Cells Schistocytes Sodium Potassium Chloride Carbon Dioxide Anion Gap BUN Creatinine Estim Creat Clear Calc Estimated GFR Glucose POC Capillary Glucose 178 H Calcium Total Bilirubin AST ALT Alkaline Phosphatase Total Protein Albumin Quality VTE Prophylaxis VTE prophylaxis: mechanical ordered
--- NOTE | 2024-08-04 15:19 | PC.NURSE ---
On 08/04/24, the BOATBUILDER SUPERVISOR, Georgina, provided care and completed [facility] documentation on this patient. I have reviewed the BOATBUILDER SUPERVISOR's documentation and agree with the findings.
--- NOTE | 2024-08-04 15:42 | P.CONONC_ITS ---
Recommendations Per admission notes patient has severe cirrhosis is on spironolactone and lactulose for decompensated liver failure His liver enzymes has been elevated during this admission. Thrombocytopenia is noted since admission with platelet count ranging from 89 - 97 K. prior to this admission the CBC reported in August 2023 showed a normal platelet count of 162 K. Therefore chronicity of the decompensated cirrhosis is not known. PT/PTT were mildly elevated in 08/2023 as well. Patient is now status post right ankle surgery and will not be weight-bearing for minimum of 6 weeks per orthopedic notes. Therefore he is at high risk for thrombosis. Currently he is on heparin 5000 units SQ twice a day. Thrombocytopenia is mild as platelet count remains greater than 50 K consistently during this admission. Therefore he can be given Apixaban 2.5 mg twice a day as a prophylaxis for DVT prevention. Since patient is going to be nonweightbearing for 6 weeks, I do recommend a course of prophylaxis for 6 weeks. He should get CBC every 2 weeks in rehab for platelet monitoring and confirming that platelets are above 50 K while on apixaban. Impression This is a 74-year-old male status post right ankle surgery and needing guidance on post surgery DVT prophylaxis Post orthopedic surgery anticoagulation management- Per admission notes patient has severe cirrhosis is on spironolactone and lactulose. His liver enzymes has been intermittently elevated. Thrombocytopenia is noted since admission with platelet count ranging from 89 - 97 K. prior to this admission the CBC reported in August 2023 showed a normal platelet count of 186 K. therefore chronicity of the cirrhosis is not known. Patient is now status post right ankle surgery and will not be weight-bearing for minimum of 6 weeks per orthopedic notes. Therefore he is at high risk for thrombosis. Currently he is on heparin 5000 units SQ twice a day. Thrombocytopenia is mild as platelet count remains greater than 50 K consistently during this admission. Therefore he can be given Apixaban 2.5 mg twice a day as a prophylaxis for DVT prevention. Since patient is going to be nonweightbearing for 6 weeks, I do recommend a course of prophylaxis for 6 weeks. He should get CBC every 2 weeks in rehab for platelet monitoring and confirming that platelets are above 50 K while on apixaban. PMFSH - Date/Time Seen 08/04/24 15:42 - History of Present Illness Patient is a 74-year-old gentleman with past medical hx of Diabetes, COPD, HTN, PVD and severe liver cirrhosis. Patient is on lactulose and spironolactone. He was admitted via emergency room on 07/30/24 evening after a fall home. Per admission notes patient was found to be severely intoxicated with a blood alcohol of 289 mg/dL. He presented with a fracture dislocation right ankle trimalleolar. He underwent Open reduction internal fixation right trimalleolar ankle fracture without fixation of posterior lip on 08/01/[address] Romeo Ortega. Hematology is consulted for post-op anticoagulation advise in the setting of thrombocytopenia, cirrhosis and ongoing alcohol use. Per orthopedic notes it is going to be a minimum of 6 weeks before patient is able to bear any weight on his right leg. Discharge planning is to release him to rehab facility. Patient was seen at bedside with right leg splint in place. - Medical History Medical History (Last Updated 07/30/24 @ 21:42 by Sidney Patel MD) Cirrhosis of liver COPD (chronic obstructive pulmonary disease) Diabetes Hyperlipidemia Hypertension Peripheral vascular disease - Surgical History Surgical History (Last Reviewed 07/30/24 @ 21:01 by Apple Lundy RN) No pertinent past surgical history - Social History Social History Alcohol Use: Alcohol intake: former Others: Spiritual care concerns: No Smoking Status: Smoking status: Former smoker Approximate Smoking End Date: 2019 Smoking Pack-years: Smoking packs per day: 2 Smoking cigarettes per day: 40.0 Years smoked: 52 Smoking pack-years: 104.00 Social Determinants of Health: Do You Feel Safe in your Home?: Yes Has the Lack of Transportation Kept You From Medical Appointments or From Getting Medications?: No Within the Past 12 Months, Were You Worried Whether Your Food Would Run Out Before You Got Money to Buy More?: Never True What is Your Housing Situation Today?: I Have Housing Are You Worried That in the Next 2 Months, You May Not Have Your Own Housing to Live In?: No Do You Have Trouble Paying Your Heating Or Electricity Bill?: No Do You Have Trouble Paying For Medicines?: No Are You Currently Unemployed and Looking for Work?: No Highest Level of Education Completed: High School Diploma/GED Do You Have Trouble With Childcare or the Care of a Family Member?: No - Medications Active Medications Generic Name Dose Route Start Last Admin Trade Name Freq PRN Reason Stop Dose Admin Albuterol 2 puff 07/31/24 08:07 Albuterol Sulfate (*Sp) Aerosol 1 Puff INHALATION Q4H PRN SOB/Wheezing Cefdinir 300 mg 08/02/24 09:00 08/04/24 09:45 Cefdinir 300 Mg Capsule PO 08/08/24 21:01 300 mg Q12HR THA Administration Chlordiazepoxide HCl 25 mg 08/02/24 18:00 08/04/24 12:00 Chlordiazepoxide (*Crx) 25 Mg Capsule PO Not Given Q6HR THA Famotidine 20 mg 08/01/24 21:00 08/04/24 09:45 Famotidine 20 Mg Tablet PO 20 mg Q12HR THA Administration Finasteride 5 mg 07/31/24 09:00 08/04/24 09:45 Finasteride 5 Mg Tablet PO 5 mg DAILY THA Administration Furosemide 40 mg 08/02/24 09:00 08/04/24 09:42 Furosemide 40 Mg Tablet PO Not Given DAILY THA Sodium Chloride 1,000 mls @ 100 mls/hr 08/04/24 11:45 08/04/24 12:12 Normal Saline Iv IV CONT 100 mls/hr .Q10H THA Administration Lactulose 6.67 gm 07/31/24 09:00 08/04/24 10:00 Lactulose 20 Gm/30 Ml Udc PO Not Given DAILY THA Loratadine 10 mg 07/31/24 21:00 08/03/24 21:45 Loratadine 10 Mg Tablet PO 10 mg HS THA Administration Lorazepam 2 mg 08/02/24 14:07 08/02/24 14:15 Lorazepam Inj (*Crx) 2 Mg/Ml Vial IV PUSH 2 mg Q4H PRN Administration CIWA 8-15 Magnesium Oxide 400 mg 08/02/24 12:00 08/04/24 12:08 Magnesium Oxide 400 Mg Tablet PO 400 mg DAILY@1200 THA Administration Morphine Sulfate 2 mg 08/01/24 14:37 Morphine Sulfate (*Crx) 2 Mg/Ml Inj IV PUSH Q2H PRN Breakthrough Pain Rated 4-6 or NPO Naloxone HCl 0.1 mg 08/01/24 14:37 Naloxone Hcl 0.4 Mg/Ml Vial IV PUSH Q2M PRN Opiate Reversal Ondansetron HCl 4 mg 08/01/24 14:37 Ondansetron Inj 4 Mg/2 Ml Vial IV PUSH Q4H PRN Nausea And Vomiting Oxycodone HCl 2.5 mg 08/01/24 14:37 Oxycodone Hcl (*Crx) 2.5 Mg Tab Ir PO Q4H PRN Pain Rated 4-6 Polyethylene Glycol 17 gm 08/02/24 09:00 08/04/24 10:00 Polyethylene Glycol 3350 17 Gm Powd.Pack PO Not Given QAM THA Saccharomyces Boulardii 250 mg 08/04/24 13:00 08/04/24 14:06 Saccharomyces Boulardii 250 Mg Capsule PO 250 mg TID THA Administration Senna/Docusate Sodium 2 tab 08/01/24 17:00 08/04/24 10:00 Senna/Docusate Sodium Tablet PO Not Given BID THA Senna/Docusate Sodium 1 tab 08/02/24 21:00 08/03/24 21:42 Senna/Docusate Sodium Tablet PO Not Given HS THA Sertraline HCl 50 mg 07/31/24 09:00 08/04/24 09:45 Sertraline Hcl 50 Mg Tablet PO 50 mg DAILY THA Administration Spironolactone 100 mg 07/31/24 09:00 08/04/24 09:45 Spironolactone 50 Mg Tablet PO 100 mg DAILY THA Administration Thiamine HCl 100 mg 08/03/24 09:00 08/04/24 09:58 Thiamine Hcl 200 Mg/2 Ml Vial IV PUSH 100 mg DAILY THA Administration - Allergies Allergies Allergy/AdvReac Type Severity Reaction Status Date / Time No Known Allergies Allergy Unknown Verified 08/01/24 12:00 Review of Systems - Constitutional Reports lack of energy, Reports weakness - Eyes Comments: Normal with no scleral icterus - ENT Comments: Normal - Cardiovascular Comments: Denies chest pain or shortness of breath. Denies hemoptysis. Denies phlegm production or cough - Gastrointestinal Comments: Denies abdominal pain, nausea, vomiting, diarrhea. - Musculoskeletal Comments: Nonweightbearing due to her right ankle surgery - Neurologic Reports system reviewed and no additional complaints, except as documented Comments: Patient is slow to respond to the questions but can be aroused easily. Exam - Vital Signs Vital Signs - 24 hr 08/03/24 16:00 08/03/24 16:00 08/03/24 22:00 Temperature 35.9 C L 36.8 C Pulse Rate 96 96 Pulse Rate [Right Popliteal Palpation] 65 Respiratory Rate 20 16 Blood Pressure 118/50 L 109/46 L Pulse Oximetry 97 96 Oxygen Delivery 08/04/24 02:00 08/04/24 06:00 08/04/24 09:38 Temperature 36.8 C 36.8 C 35.7 C L Pulse Rate 83 79 87 Pulse Rate [Right Popliteal Palpation] Respiratory Rate 14 16 18 Blood Pressure 111/46 L 107/49 L 99/43 L Pulse Oximetry 90 92 97 Oxygen Delivery 08/04/24 09:45 08/04/24 14:00 Temperature 35.6 C L Pulse Rate 87 Pulse Rate [Right Popliteal Palpation] Respiratory Rate 18 Blood Pressure 118/53 L Pulse Oximetry 97 Oxygen Delivery Room Air - Exam HEENT: EOMI, PERRLA, sclera clear Neck: supple Lungs: clear to auscultation Heart: no murmurs, gallops, or rubs Abdomen: abdomen soft, non-distended, other (No ascites) Neurological: generalized weakness - Lab Results Laboratory Last Values WBC 5.7 K/mm3 (4.5-10.0) 08/04/24 06:04 RBC 3.06 M/mm3 (4.6-6.20) L 08/04/24 06:04 Hgb 9.7 g/dL (14.0-18.0) L 08/04/24 06:04 Hct 30.2 % (42.0-52.0) L 08/04/24 06:04 MCV 98.7 fl (80-100) 08/04/24 06:04 MCH 31.7 pg (26-34) 08/04/24 06:04 MCHC 32.1 g/dl (32-36) 08/04/24 06:04 RDW 16.5 % (11.5-14.5) H 08/04/24 06:04 Plt Count 97 k/mm3 (150-375) L 08/04/24 06:04 MPV 10.4 fl (7.4-10.4) 08/04/24 06:04 Immature Gran % (Auto) 0.5 % (0-0.5) 08/04/24 06:04 Neut % (Auto) 67.1 % (45.5-73.1) 08/04/24 06:04 Lymph % (Auto) 15.4 % (18.3-44.2) L 08/04/24 06:04 [place] % (Auto) 14.7 % (2.6-8.5) H 08/04/24 06:04 Eos % (Auto) 1.8 % (0-4.4) 08/04/24 06:04 Baso % (Auto) 0.5 % (0.2-1.2) 08/04/24 06:04 Lymph # (Auto) 0.88 K/mm3 (0.9-3.2) L 08/04/24 06:04 [place] # (Auto) 0.8 K/mm3 (0.1-0.6) H 08/04/24 06:04 Eos # (Auto) 0.1 K/mm3 (0-0.3) 08/04/24 06:04 Baso # (Auto) 0.0 K/mm3 (0.0-0.1) 08/04/24 06:04 Abs Immat Gran (auto) 0.03 K/mm3 (0.00-0.031) 08/04/24 06:04 Absolute Neuts (auto) 3.8 K/mm3 (1.3-6.7) 08/04/24 06:04 Absolute Nucleated RBC 0.000 K/mm3 (0.0-0.012) 08/04/24 06:04 Total Counted 100 08/02/24 06:27 Neutrophils % (Manual) 83 % (46-73) H 08/02/24 06:27 Band Neutrophils % 8 % (0-6) H 08/02/24 06:27 Lymphocytes % (Manual) 3 % (18-44) L 08/02/24 06:27 Monocytes % (Manual) 6 % (3-9) 08/02/24 06:27 Eosinophils % (Manual) 2 % (0-4) 07/30/24 19:42 Nucleated RBC % 0.0 % (0.0-0.2) 08/04/24 06:04 Abs Neuts (Manual) 9.19 K/mm3 (1.3-6.7) H 08/02/24 06:27 Abs Lymphs (Manual) 0.30 K/mm3 (1.1-4.5) L 08/02/24 06:27 Abs Monocytes (Manual) 0.60 K/mm3 (0.1-0.90) 08/02/24 06:27 Absolute Eos (Manual) 0.08 K/mm3 (0.02-0.50) 07/30/24 19:42 Platelet Estimate Decreased (Adequate) 08/04/24 06:04 % Immature Plt Fraction 5.7 % (0.9-11.2) 08/04/24 06:04 Anisocytosis 1+ 08/02/24 06:27 [place] Cells 1+ 08/04/24 06:04 Schistocytes None seen 08/04/24 06:04 PT 15.4 Seconds (11.1-14.7) H 08/01/24 06:26 INR 1.2 08/01/24 06:26 APTT 38.4 Seconds (22.3-36.8) H 07/30/24 19:42 Sodium 131 mmol/L (137-145) L 08/04/24 06:04 Potassium 3.1 mmol/L (3.4-5.0) L 08/04/24 06:04 Chloride 93 mmol/L (98-107) L 08/04/24 06:04 Carbon Dioxide 29 mmol/L (22-30) 08/04/24 06:04 Anion Gap 9 mmol/L (4-12) 08/04/24 06:04 BUN 20 mg/dL (9-20) 08/04/24 06:04 Creatinine 0.60 mg/dL (0.7-1.3) L 08/04/24 06:04 Estim Creat Clear Calc 90 ml/min 08/04/24 06:04 Estimated GFR > 60 (59-) 08/04/24 06:04 Glucose 77 mg/dL (65-110) 08/04/24 06:04 POC Capillary Glucose 178 mg/dl (65-105) H 08/04/24 12:03 Calcium 8.2 mg/dL (8.4-10.2) L 08/04/24 06:04 Phosphorus 3.0 mg/dL (2.5-4.5) 08/03/24 06:29 Magnesium 2.0 mg/dL (1.6-2.3) 08/03/24 06:29 Iron 86 ug/dL (49-181) 07/30/24 19:42 TIBC 295 ug/dL (265-497) 07/30/24 19:42 % Saturation 29 % (20-50) 07/30/24 19:42 Total Bilirubin 3.3 mg/dL (0.2-1.3) H 08/04/24 06:04 AST 90 U/L (17-59) H 08/04/24 06:04 ALT 24 U/L (6-50) 08/04/24 06:04 Alkaline Phosphatase 193 U/L (38-126) H 08/04/24 06:04 Ammonia 10 umol/L (9-30) 08/03/24 14:41 Total Protein 5.0 g/dL (6.3-8.2) L 08/04/24 06:04 Albumin 2.5 g/dL (3.5-5.1) L 08/04/24 06:04 Vitamin D 25-Hydroxy 55.2 ng/mL 08/02/24 06:26 Ethyl Alcohol 289 mg/dL (<10) 07/30/24 19:42
[2024-08-04 18:00] VITALS: BP 104/44; PULSE 70; RESP 14; TEMP 36.5; O2SAT 99
[2024-08-04 18:45] LABS: Glucose Point of Care 176 mg/dl (65-105)
--- NOTE | 2024-08-04 19:17 | P.PNOP_ITS ---
Progress Note: A&P Assessment and Plan (1) Trimalleolar fracture of right ankle: Qualifiers: Encounter type: initial encounter Fracture type: closed Qualified Code(s): S82.851A - Displaced trimalleolar fracture of right lower leg, initial encounter for closed fracture Code(s): S82.851A - Displaced trimalleolar fracture of right lower leg, initial encounter for closed fracture Status: Acute Assessment and Plan: [employer] consultation note reviewed and apixaban has been recommended. His subQ heparin was discontinued at 8:30 a.m. this morning so we can institute the Eliquis at 9:00 p.m. tonight 2.5 mg q.12 hours for 6 weeks. It was recommended that he have a CBC to rule out worsening thrombocytopenia every 2 weeks and I have placed this recommendation as an order in the discharge summary under discharge instructions. Subjective Subjective Date/Time Seen: 08/04/24 19:17 Objective Data Vital Signs Vital Signs: Vital Signs - 24 hr 08/03/24 22:00 08/04/24 02:00 08/04/24 06:00 Temperature 36.8 C 36.8 C 36.8 C Pulse Rate 96 83 79 Respiratory Rate 16 14 16 Blood Pressure 109/46 L 111/46 L 107/49 L Pulse Oximetry 96 90 92 Oxygen Delivery 08/04/24 09:38 08/04/24 09:45 08/04/24 14:00 Temperature 35.7 C L 35.6 C L Pulse Rate 87 87 Respiratory Rate 18 18 Blood Pressure 99/43 L 118/53 L Pulse Oximetry 97 97 Oxygen Delivery Room Air 08/04/24 18:00 Temperature 36.5 C Pulse Rate 70 Respiratory Rate 14 Blood Pressure 104/44 L Pulse Oximetry 99 Oxygen Delivery Intake/Output Intake/Output: Intake & Output 08/01/24 08/02/24 08/03/24 08/04/24 23:59 23:59 23:59 23:59 Intake Total 1530 1090 0 680 Output Total 850 850 350 200 Balance 680 240 -350 480 Meds/Results Medications: Active Medications Generic Name Dose Route Start Last Admin Trade Name Freq PRN Reason Stop Dose Admin Albuterol 2 puff 07/31/24 08:07 Albuterol Sulfate (*Sp) Aerosol 1 Puff INHALATION Q4H PRN SOB/Wheezing Apixaban 2.5 mg 08/04/24 21:00 Apixaban 2.5 Mg Tablet PO 09/15/24 20:59 Q12HR THA Cefdinir 300 mg 08/02/24 09:00 08/04/24 09:45 Cefdinir 300 Mg Capsule PO 08/08/24 21:01 300 mg Q12HR THA Administration Chlordiazepoxide HCl 25 mg 08/02/24 18:00 08/04/24 17:41 Chlordiazepoxide (*Crx) 25 Mg Capsule PO Not Given Q6HR THA Famotidine 20 mg 08/01/24 21:00 08/04/24 09:45 Famotidine 20 Mg Tablet PO 20 mg Q12HR THA Administration Finasteride 5 mg 07/31/24 09:00 08/04/24 09:45 Finasteride 5 Mg Tablet PO 5 mg DAILY THA Administration Furosemide 40 mg 08/02/24 09:00 08/04/24 09:42 Furosemide 40 Mg Tablet PO Not Given DAILY THA Sodium Chloride 1,000 mls @ 100 mls/hr 08/04/24 11:45 08/04/24 12:12 Normal Saline Iv IV CONT 100 mls/hr .Q10H THA Administration Lactulose 6.67 gm 07/31/24 09:00 08/04/24 10:00 Lactulose 20 Gm/30 Ml Udc PO Not Given DAILY THA Loratadine 10 mg 07/31/24 21:00 08/03/24 21:45 Loratadine 10 Mg Tablet PO 10 mg HS THA Administration Lorazepam 2 mg 08/02/24 14:07 08/02/24 14:15 Lorazepam Inj (*Crx) 2 Mg/Ml Vial IV PUSH 2 mg Q4H PRN Administration CIWA 8-15 Magnesium Oxide 400 mg 08/02/24 12:00 08/04/24 12:08 Magnesium Oxide 400 Mg Tablet PO 400 mg DAILY@1200 THA Administration Morphine Sulfate 2 mg 08/01/24 14:37 Morphine Sulfate (*Crx) 2 Mg/Ml Inj IV PUSH Q2H PRN Breakthrough Pain Rated 4-6 or NPO Naloxone HCl 0.1 mg 08/01/24 14:37 Naloxone Hcl 0.4 Mg/Ml Vial IV PUSH Q2M PRN Opiate Reversal Ondansetron HCl 4 mg 08/01/24 14:37 Ondansetron Inj 4 Mg/2 Ml Vial IV PUSH Q4H PRN Nausea And Vomiting Oxycodone HCl 2.5 mg 08/01/24 14:37 Oxycodone Hcl (*Crx) 2.5 Mg Tab Ir PO Q4H PRN Pain Rated 4-6 Polyethylene Glycol 17 gm 08/02/24 09:00 08/04/24 10:00 Polyethylene Glycol 3350 17 Gm Powd.Pack PO Not Given QAM THA Saccharomyces Boulardii 250 mg 08/04/24 13:00 08/04/24 17:42 Saccharomyces Boulardii 250 Mg Capsule PO 250 mg TID THA Administration Senna/Docusate Sodium 2 tab 08/01/24 17:00 08/04/24 17:42 Senna/Docusate Sodium Tablet PO Not Given BID THA Senna/Docusate Sodium 1 tab 08/02/24 21:00 08/03/24 21:42 Senna/Docusate Sodium Tablet PO Not Given HS THA Sertraline HCl 50 mg 07/31/24 09:00 08/04/24 09:45 Sertraline Hcl 50 Mg Tablet PO 50 mg DAILY THA Administration Spironolactone 100 mg 07/31/24 09:00 08/04/24 09:45 Spironolactone 50 Mg Tablet PO 100 mg DAILY THA Administration Thiamine HCl 100 mg 08/03/24 09:00 08/04/24 09:58 Thiamine Hcl 200 Mg/2 Ml Vial IV PUSH 100 mg DAILY THA Administration Radiology Results: ITS Impressions Ankle X-Ray 07/30/24 20:25 IMPRESSION: Improved alignment post reduction, as detailed. Chest X-Ray 07/30/24 20:27 IMPRESSION: No focal infiltrate or effusion. Ankle CT 07/30/24 23:52 IMPRESSION: Trimalleolar fracture of the right ankle, as detailed above. Intraoperative X-Ray 08/01/24 14:04 IMPRESSION: 1. Trimalleolar ankle fracture status post open reduction internal fixation. Labs Labs: Laboratory Results - last 24 hr 08/04/24 08/04/24 08/04/24 05:28 06:04 12:03 WBC 5.7 RBC 3.06 L Hgb 9.7 L Hct 30.2 L MCV 98.7 MCH 31.7 MCHC 32.1 RDW 16.5 H Plt Count 97 L MPV 10.4 Immature Gran % (Auto) 0.5 Neut % (Auto) 67.1 Lymph % (Auto) 15.4 L [place] % (Auto) 14.7 H Eos % (Auto) 1.8 Baso % (Auto) 0.5 Lymph # (Auto) 0.88 L [place] # (Auto) 0.8 H Eos # (Auto) 0.1 Baso # (Auto) 0.0 Abs Immat Gran (auto) 0.03 Absolute Neuts (auto) 3.8 Absolute Nucleated RBC 0.000 Nucleated RBC % 0.0 Platelet Estimate Decreased % Immature Plt Fraction 5.7 [place] Cells 1+ Schistocytes None seen Sodium 131 L Potassium 3.1 L Chloride 93 L Carbon Dioxide 29 Anion Gap 9 BUN 20 Creatinine 0.60 L Estim Creat Clear Calc 90 Estimated GFR > 60 Glucose 77 POC Capillary Glucose 78 178 H Calcium 8.2 L Total Bilirubin 3.3 H AST 90 H ALT 24 Alkaline Phosphatase 193 H Total Protein 5.0 L Albumin 2.5 L 08/04/24 18:36 WBC RBC Hgb Hct MCV MCH MCHC RDW Plt Count MPV Immature Gran % (Auto) Neut % (Auto) Lymph % (Auto) [place] % (Auto) Eos % (Auto) Baso % (Auto) Lymph # (Auto) [place] # (Auto) Eos # (Auto) Baso # (Auto) Abs Immat Gran (auto) Absolute Neuts (auto) Absolute Nucleated RBC Nucleated RBC % Platelet Estimate % Immature Plt Fraction [place] Cells Schistocytes Sodium Potassium Chloride Carbon Dioxide Anion Gap BUN Creatinine Estim Creat Clear Calc Estimated GFR Glucose POC Capillary Glucose 176 H Calcium Total Bilirubin AST ALT Alkaline Phosphatase Total Protein Albumin
[2024-08-04] MEDS: APIXABAN 2.5 MG TABLET PO (20:14)
[2024-08-04] MEDS: LORATADINE 10 MG TABLET PO (20:15)
[2024-08-04 22:00] VITALS: BP 115/51; PULSE 79; RESP 14; TEMP 36.3; O2SAT 100
[2024-08-04 22:01] LABS: Glucose Point of Care 176 mg/dl (65-105)
[2024-08-05] MEDS: chlordiazePOXIDE (*CRX) 25 MG CAPSULE PO ×2 (00:24→05:21)
[2024-08-05] MEDS: SODIUM CHLORIDE 0.9% IV 1,000 ML 100 ML IV CONT (01:18)
[2024-08-05 06:00] VITALS: BP 112/57; PULSE 68; RESP 12; TEMP 36.1; O2SAT 96
[2024-08-05 06:12] LABS: Basophils Percent Auto 0.5 % (0.2-1.2); Eosinophils Absolute Auto 0.1 K/mm3 (0-0.3); Eosinophils Percent Auto 2.4 % (0-4.4); Hematocrit 29.4 % (42.0-52.0); Hemoglobin 9.7 g/dL (14.0-18.0); Immature Granulocyte Absolute 0.02 K/mm3 (0.00-0.031); Immature Granulocyte Percent A 0.5 % (0-0.5); Immature Platelet Fraction Pct 5.5 % (0.9-11.2); Lymphocytes Absolute Auto 0.68 K/mm3 (0.9-3.2); Lymphocytes Percent Auto 18.5 % (18.3-44.2); Mean Corpuscular Hemoglobin 32.7 pg (26-34); Mean Platelet Volume 10.7 fl (7.4-10.4); Monocytes Absolute Auto 0.7 K/mm3 (0.1-0.6); Monocytes Percent Auto 19.6 % (2.6-8.5); Neutrophils Absolute Auto 2.2 K/mm3 (1.3-6.7); Neutrophils Percent Auto 58.5 % (45.5-73.1); Platelet Count Result 95 k/mm3 (150-375); Red Blood Count 2.97 M/mm3 (4.6-6.20); Red Cell Distribution Width 16.7 % (11.5-14.5); White Blood Count 3.7 K/mm3 (4.5-10.0)
[2024-08-05 06:47] LABS: Alanine Aminotransferase 22 U/L (6-50); Albumin Level 2.4 g/dL (3.5-5.1); Alkaline Phosphatase 227 U/L (38-126); Anion Gap 3 mmol/L (4-12); Aspartate Amino Transferase 72 U/L (17-59); Bilirubin,Total 2.5 mg/dL (0.2-1.3); Blood Urea Nitrogen 14 mg/dL (9-20); Calcium 7.9 mg/dL (8.4-10.2); Carbon Dioxide 31 mmol/L (22-30); Chloride 98 mmol/L (98-107); Estimated CRCL calculation 90 ml/min; Estimated Glomerular Filt Rate > 60; Glucose 111 mg/dL (65-110); Potassium 3.9 mmol/L (3.4-5.0); Sodium 132 mmol/L (137-145)
[2024-08-05] MEDS: SERTRALINE HCL 50 MG TABLET PO (08:37)
[2024-08-05] MEDS: SENNA/DOCUSATE SODIUM TABLET 2 TAB PO (08:37)
[2024-08-05] MEDS: SACCHAROMYCES BOULARDII 250 MG CAPSULE PO ×3 (08:37→17:00)
[2024-08-05] MEDS: FAMOTIDINE 20 MG TABLET PO ×2 (08:37→20:36)
[2024-08-05] MEDS: FUROSEMIDE 40 MG TABLET PO (08:37)
[2024-08-05] MEDS: FINASTERIDE 5 MG TABLET PO (08:37)
[2024-08-05] MEDS: SPIRONOLACTONE 50 MG TABLET 100 MG PO (08:37)
[2024-08-05] MEDS: CEFDINIR 300 MG CAPSULE PO ×2 (08:37→20:36)
[2024-08-05] MEDS: APIXABAN 2.5 MG TABLET PO ×2 (08:38→20:36)
[2024-08-05] MEDS: polyethylene glycoL 3350 17 GM POWD.PACK PO (08:38)
[2024-08-05] MEDS: THIAMINE HCL 200 MG/2 ML VIAL 100 MG IV PUSH (08:47)
[2024-08-05] MEDS: LACTULOSE 20 GM/30 ML UDC 6.67 GM PO (08:47)
[2024-08-05 11:39] LABS: Glucose Point of Care 149 mg/dl (65-105)
--- NOTE | 2024-08-05 11:45 | PM.PNORT ---
Subjective Subjective Date/Time Seen: 08/05/24 11:45 Interval history: Postop day 4 patient is confused but alert. Splint is intact. Patient is on Eliquis for DVT prophylaxis. Awaiting rehab placement. Platelets are 95k this morning.Pt is restless in bed, nursing having hard time keeping leg elevated because of confusion, pt appears in no distress Objective Data Vital Signs Vital Signs: Vital Signs - 24 hr 08/04/24 14:00 08/04/24 18:00 08/04/24 22:00 Temperature 96.1 F L 97.7 F 97.3 F L Pulse Rate 87 70 79 Respiratory Rate 18 14 14 Blood Pressure 118/53 L 104/44 L 115/51 L Pulse Oximetry 97 99 100 Oxygen Delivery 08/04/24 20:00 08/05/24 06:00 Temperature 97.0 F L Pulse Rate 68 Respiratory Rate 12 Blood Pressure 112/57 L Pulse Oximetry 96 Oxygen Delivery Room Air Intake/Output Intake/Output: Intake & Output 08/02/24 08/03/24 08/04/24 08/05/24 23:59 23:59 23:59 23:59 Intake Total 1090 0 1176.7 1240.3 Output Total 850 350 200 Balance 240 -350 976.7 1240.3 Meds/Results Medications: Active Medications Generic Name Dose Route Start Last Admin Trade Name Freq PRN Reason Stop Dose Admin Albuterol 2 puff 07/31/24 08:07 Albuterol Sulfate (*Sp) Aerosol 1 Puff INHALATION Q4H PRN SOB/Wheezing Apixaban 2.5 mg 08/04/24 21:00 08/05/24 08:38 Apixaban 2.5 Mg Tablet PO 09/15/24 20:59 2.5 mg Q12HR THA Administration Cefdinir 300 mg 08/02/24 09:00 08/05/24 08:37 Cefdinir 300 Mg Capsule PO 08/08/24 21:01 300 mg Q12HR THA Administration Chlordiazepoxide HCl 25 mg 08/02/24 18:00 08/05/24 05:21 Chlordiazepoxide (*Crx) 25 Mg Capsule PO 25 mg Q6HR THA Administration Famotidine 20 mg 08/01/24 21:00 08/05/24 08:37 Famotidine 20 Mg Tablet PO 20 mg Q12HR THA Administration Finasteride 5 mg 07/31/24 09:00 08/05/24 08:37 Finasteride 5 Mg Tablet PO 5 mg DAILY THA Administration Furosemide 40 mg 08/02/24 09:00 08/05/24 08:37 Furosemide 40 Mg Tablet PO 40 mg DAILY THA Administration Sodium Chloride 1,000 mls @ 100 mls/hr 08/04/24 11:45 08/05/24 01:18 Normal Saline Iv IV CONT 100 mls/hr .Q10H THA Administration Lactulose 6.67 gm 07/31/24 09:00 08/05/24 08:47 Lactulose 20 Gm/30 Ml Udc PO 6.67 gm DAILY THA Administration Loratadine 10 mg 07/31/24 21:00 08/04/24 20:15 Loratadine 10 Mg Tablet PO 10 mg HS THA Administration Lorazepam 2 mg 08/02/24 14:07 08/02/24 14:15 Lorazepam Inj (*Crx) 2 Mg/Ml Vial IV PUSH 2 mg Q4H PRN Administration CIWA 8-15 Magnesium Oxide 400 mg 08/02/24 12:00 08/04/24 12:08 Magnesium Oxide 400 Mg Tablet PO 400 mg DAILY@1200 THA Administration Morphine Sulfate 2 mg 08/01/24 14:37 Morphine Sulfate (*Crx) 2 Mg/Ml Inj IV PUSH Q2H PRN Breakthrough Pain Rated 4-6 or NPO Naloxone HCl 0.1 mg 08/01/24 14:37 Naloxone Hcl 0.4 Mg/Ml Vial IV PUSH Q2M PRN Opiate Reversal Ondansetron HCl 4 mg 08/01/24 14:37 Ondansetron Inj 4 Mg/2 Ml Vial IV PUSH Q4H PRN Nausea And Vomiting Oxycodone HCl 2.5 mg 08/01/24 14:37 Oxycodone Hcl (*Crx) 2.5 Mg Tab Ir PO Q4H PRN Pain Rated 4-6 Polyethylene Glycol 17 gm 08/02/24 09:00 08/05/24 08:38 Polyethylene Glycol 3350 17 Gm Powd.Pack PO 17 gm QAM THA Administration Saccharomyces Boulardii 250 mg 08/04/24 13:00 08/05/24 08:37 Saccharomyces Boulardii 250 Mg Capsule PO 250 mg TID THA Administration Senna/Docusate Sodium 2 tab 08/01/24 17:00 08/05/24 08:37 Senna/Docusate Sodium Tablet PO 2 tab BID THA Administration Senna/Docusate Sodium 1 tab 08/02/24 21:00 08/04/24 20:15 Senna/Docusate Sodium Tablet PO Not Given HS THA Sertraline HCl 50 mg 07/31/24 09:00 08/05/24 08:37 Sertraline Hcl 50 Mg Tablet PO 50 mg DAILY THA Administration Spironolactone 100 mg 07/31/24 09:00 08/05/24 08:37 Spironolactone 50 Mg Tablet PO 100 mg DAILY THA Administration Thiamine HCl 100 mg 08/03/24 09:00 08/05/24 08:47 Thiamine Hcl 200 Mg/2 Ml Vial IV PUSH 100 mg DAILY THA Administration Radiology Results: ITS Impressions Ankle X-Ray 07/30/24 20:25 IMPRESSION: Improved alignment post reduction, as detailed. Chest X-Ray 07/30/24 20:27 IMPRESSION: No focal infiltrate or effusion. Ankle CT 07/30/24 23:52 IMPRESSION: Trimalleolar fracture of the right ankle, as detailed above. Intraoperative X-Ray 08/01/24 14:04 IMPRESSION: 1. Trimalleolar ankle fracture status post open reduction internal fixation. Labs Labs: Laboratory Results - last 24 hr 08/04/24 08/04/24 08/04/24 12:03 18:36 21:56 WBC RBC Hgb Hct MCV MCH MCHC RDW Plt Count MPV Immature Gran % (Auto) Neut % (Auto) Lymph % (Auto) [place] % (Auto) Eos % (Auto) Baso % (Auto) Lymph # (Auto) [place] # (Auto) Eos # (Auto) Baso # (Auto) Abs Immat Gran (auto) Absolute Neuts (auto) Absolute Nucleated RBC Nucleated RBC % % Immature Plt Fraction Sodium Potassium Chloride Carbon Dioxide Anion Gap BUN Creatinine Estim Creat Clear Calc Estimated GFR Glucose POC Capillary Glucose 178 H 176 H 176 H Calcium Total Bilirubin AST ALT Alkaline Phosphatase Total Protein Albumin 08/05/24 08/05/24 05:38 11:34 WBC 3.7 L RBC 2.97 L Hgb 9.7 L Hct 29.4 L MCV 99.0 MCH 32.7 MCHC 33.0 RDW 16.7 H Plt Count 95 L MPV 10.7 H Immature Gran % (Auto) 0.5 Neut % (Auto) 58.5 Lymph % (Auto) 18.5 [place] % (Auto) 19.6 H Eos % (Auto) 2.4 Baso % (Auto) 0.5 Lymph # (Auto) 0.68 L [place] # (Auto) 0.7 H Eos # (Auto) 0.1 Baso # (Auto) 0.0 Abs Immat Gran (auto) 0.02 Absolute Neuts (auto) 2.2 Absolute Nucleated RBC 0.000 Nucleated RBC % 0.0 % Immature Plt Fraction 5.5 Sodium 132 L Potassium 3.9 Chloride 98 Carbon Dioxide 31 H Anion Gap 3 L BUN 14 D Creatinine 0.60 L Estim Creat Clear Calc 90 Estimated GFR > 60 Glucose 111 H POC Capillary Glucose 149 H Calcium 7.9 L Total Bilirubin 2.5 H AST 72 H ALT 22 Alkaline Phosphatase 227 H Total Protein 5.0 L Albumin 2.4 L
[2024-08-05] MEDS: MAGNESIUM OXIDE 400 MG TABLET PO (13:00)
[2024-08-05 14:00] VITALS: BP 125/45; PULSE 87; RESP 18; TEMP 36.5; O2SAT 98
--- NOTE | 2024-08-05 15:28 | P.PNIM_ITS ---
Progress Note: A&P Assessment and Plan (1) Closed trimalleolar fracture of ankle: Code(s): S82.853A - Displaced trimalleolar fracture of unspecified lower leg, initial encounter for closed fracture Status: Acute Assessment and Plan: -postop day 4 from a ORIF of the right trimalleolar ankle fracture without fixation of posterior lip - Ortho following - nonweightbearing right lower extremity -continue pain control - PT/OT are recommending SNF placement and is considered at least moderate assist on most activity -Case coordination consulted -Continue cefdinir for total of 14 doses per surgery recommendation -Continue Florastor (2) Cirrhosis of liver: Code(s): K74.60 - Unspecified cirrhosis of liver Status: Acute Assessment and Plan: - Possibly related to alcohol abuse. - Continue spironolactone and lactulose - Monitor for decompensation. - DC CIHI protocol (3) COPD (chronic obstructive pulmonary disease): Code(s): J44.9 - Chronic obstructive pulmonary disease, unspecified Status: Acute Assessment and Plan: - continue Bronchodilators PRN. (4) Hyponatremia: Code(s): E87.1 - Hypo-osmolality and hyponatremia Status: Acute Assessment and Plan: -appears to be chronic, could be due to alcohol use - Continue to monitor closely. - restarted Lasix. -Continue to trend -Na+ 132 today (5) Hypokalemia: Code(s): E87.6 - Hypokalemia Status: Acute Assessment and Plan: - K+ 3.9 - no replacement needed (6) Normochromic normocytic anemia: Code(s): D64.9 - Anemia, unspecified Status: Acute Assessment and Plan: - Possibly related to alcohol abuse. - Iron studies pending. - Monitor Hgb closely. (7) Thrombocytopenia: Code(s): D69.6 - Thrombocytopenia, unspecified Status: Acute Assessment and Plan: - likely secondary to alcoholic liver disease -Plt count 95 today, hold off on anticoagulation today (8) Depression: Code(s): F32.A - Depression, unspecified Status: Acute Assessment and Plan: - Continue sertraline. Time Spent With Patient Time with patient: Greater than 35 minutes Subjective Date/time seen: 08/05/24 15:28 Interval history: Interval history: Patient is postop day 2 from an open reduction internal fixation of a right trimalleolar ankle fracture without fixation of the posterior lip. He is currently nonweightbearing on the right side. PT and OT have been working with him and are recommending SNF placement. Subjective: No issues overnight. Labs reviewed. Review of Systems Review of Systems: All systems reviewed & are unremarkable except as noted in HPI and below Constitutional: Constitutional: Reports as per HPI and Reports no additional constitutional complaints Eyes: Eyes: Reports as per HPI and Reports no additional eye complaints ENT: Reports system reviewed and no additional complaints, except as documented and Reports as per HPI Cardiovascular: Cardiovascular: Reports as per HPI and Reports no additional cardiovascular complaints Respiratory: Respiratory: Reports as per HPI and Reports no additional respiratory complaints Gastrointestinal: Gastrointestinal: Reports as per HPI and Reports no additional gastrointestinal complaints Genitourinary: Genitourinary: Reports no additional male genitourinary complaints and Reports as per HPI Musculoskeletal: Musculoskeletal: Reports no additional musculoskeletal complaints and Reports as per HPI Integumentary/Breasts: Skin/Breast: Reports system reviewed and no additional complaints, except as docu and Reports as per HPI Neurologic: Reports system reviewed and no additional complaints, except as documented and Reports as per HPI Psychiatric: Psychiatric: Reports no additional psychiatric complaints and Reports as per HPI Exam Narrative: General: In no acute distress Cardiac: Normal S1 and S2. No murmur, gallops or friction rubs, peripheral pulses intact. Respiratory: Lungs clear to auscultation, no adventitious lung sounds, currently on room air Gastrointestinal: soft, non-distended, non-tender, normoactive bowel sounds. : voiding without difficulty. Extremities: Right lower extremity in cast up to his knee, can wiggle toes on command Neuro: Alert and oriented x4, confused at times Objective Data Vital Signs Vital Signs: Vital Signs - 24 hr 08/04/24 18:00 08/04/24 22:00 08/04/24 20:00 Temperature 97.7 F 97.3 F L Pulse Rate 70 79 Respiratory Rate 14 14 Blood Pressure 104/44 L 115/51 L Pulse Oximetry 99 100 Oxygen Delivery Room Air 08/05/24 06:00 08/05/24 14:00 08/05/24 08:00 Temperature 97.0 F L 97.7 F Pulse Rate 68 87 Respiratory Rate 12 18 Blood Pressure 112/57 L 125/45 L Pulse Oximetry 96 98 Oxygen Delivery Room Air Intake/Output Intake/Output: Intake & Output 08/02/24 08/03/24 08/04/24 08/05/24 23:59 23:59 23:59 23:59 Intake Total 1090 0 1176.7 1240.3 Output Total 850 328 316 7477 Balance 240 -350 976.7 40.3 Meds/Results Medications: Active Medications Generic Name Dose Route Start Last Admin Trade Name Freq PRN Reason Stop Dose Admin Albuterol 2 puff 07/31/24 08:07 Albuterol Sulfate (*Sp) Aerosol 1 Puff INHALATION Q4H PRN SOB/Wheezing Apixaban 2.5 mg 08/04/24 21:00 08/05/24 08:38 Apixaban 2.5 Mg Tablet PO 09/15/24 20:59 2.5 mg Q12HR THA Administration Cefdinir 300 mg 08/02/24 09:00 08/05/24 08:37 Cefdinir 300 Mg Capsule PO 08/08/24 21:01 300 mg Q12HR THA Administration Famotidine 20 mg 08/01/24 21:00 08/05/24 08:37 Famotidine 20 Mg Tablet PO 20 mg Q12HR THA Administration Finasteride 5 mg 07/31/24 09:00 08/05/24 08:37 Finasteride 5 Mg Tablet PO 5 mg DAILY THA Administration Furosemide 40 mg 08/02/24 09:00 08/05/24 08:37 Furosemide 40 Mg Tablet PO 40 mg DAILY THA Administration Lactulose 6.67 gm 07/31/24 09:00 08/05/24 08:47 Lactulose 20 Gm/30 Ml Udc PO 6.67 gm DAILY THA Administration Loratadine 10 mg 07/31/24 21:00 08/04/24 20:15 Loratadine 10 Mg Tablet PO 10 mg HS THA Administration Lorazepam 2 mg 08/02/24 14:07 08/02/24 14:15 Lorazepam Inj (*Crx) 2 Mg/Ml Vial IV PUSH 2 mg Q4H PRN Administration CIWA 8-15 Magnesium Oxide 400 mg 08/02/24 12:00 08/04/24 12:08 Magnesium Oxide 400 Mg Tablet PO 400 mg DAILY@1200 THA Administration Morphine Sulfate 2 mg 08/01/24 14:37 Morphine Sulfate (*Crx) 2 Mg/Ml Inj IV PUSH Q2H PRN Breakthrough Pain Rated 4-6 or NPO Naloxone HCl 0.1 mg 08/01/24 14:37 Naloxone Hcl 0.4 Mg/Ml Vial IV PUSH Q2M PRN Opiate Reversal Ondansetron HCl 4 mg 08/01/24 14:37 Ondansetron Inj 4 Mg/2 Ml Vial IV PUSH Q4H PRN Nausea And Vomiting Oxycodone HCl 2.5 mg 08/01/24 14:37 Oxycodone Hcl (*Crx) 2.5 Mg Tab Ir PO Q4H PRN Pain Rated 4-6 Polyethylene Glycol 17 gm 08/02/24 09:00 08/05/24 08:38 Polyethylene Glycol 3350 17 Gm Powd.Pack PO 17 gm QAM THA Administration Saccharomyces Boulardii 250 mg 08/04/24 13:00 08/05/24 08:37 Saccharomyces Boulardii 250 Mg Capsule PO 250 mg TID THA Administration Senna/Docusate Sodium 2 tab 08/01/24 17:00 08/05/24 08:37 Senna/Docusate Sodium Tablet PO 2 tab BID THA Administration Senna/Docusate Sodium 1 tab 08/02/24 21:00 08/04/24 20:15 Senna/Docusate Sodium Tablet PO Not Given HS THA Sertraline HCl 50 mg 07/31/24 09:00 08/05/24 08:37 Sertraline Hcl 50 Mg Tablet PO 50 mg DAILY THA Administration Spironolactone 100 mg 07/31/24 09:00 08/05/24 08:37 Spironolactone 50 Mg Tablet PO 100 mg DAILY THA Administration Thiamine HCl 100 mg 08/03/24 09:00 08/05/24 08:47 Thiamine Hcl 200 Mg/2 Ml Vial IV PUSH 100 mg DAILY THA Administration Radiology Results: ITS Impressions Ankle X-Ray 07/30/24 20:25 IMPRESSION: Improved alignment post reduction, as detailed. Chest X-Ray 07/30/24 20:27 IMPRESSION: No focal infiltrate or effusion. Ankle CT 07/30/24 23:52 IMPRESSION: Trimalleolar fracture of the right ankle, as detailed above. Intraoperative X-Ray 08/01/24 14:04 IMPRESSION: 1. Trimalleolar ankle fracture status post open reduction internal fixation. Labs Labs: Laboratory Results - last 24 hr 08/04/24 08/04/24 08/05/24 18:36 21:56 05:38 WBC 3.7 L RBC 2.97 L Hgb 9.7 L Hct 29.4 L MCV 99.0 MCH 32.7 MCHC 33.0 RDW 16.7 H Plt Count 95 L MPV 10.7 H Immature Gran % (Auto) 0.5 Neut % (Auto) 58.5 Lymph % (Auto) 18.5 [place] % (Auto) 19.6 H Eos % (Auto) 2.4 Baso % (Auto) 0.5 Lymph # (Auto) 0.68 L [place] # (Auto) 0.7 H Eos # (Auto) 0.1 Baso # (Auto) 0.0 Abs Immat Gran (auto) 0.02 Absolute Neuts (auto) 2.2 Absolute Nucleated RBC 0.000 Nucleated RBC % 0.0 % Immature Plt Fraction 5.5 Sodium 132 L Potassium 3.9 Chloride 98 Carbon Dioxide 31 H Anion Gap 3 L BUN 14 D Creatinine 0.60 L Estim Creat Clear Calc 90 Estimated GFR > 60 Glucose 111 H POC Capillary Glucose 176 H 176 H Calcium 7.9 L Total Bilirubin 2.5 H AST 72 H ALT 22 Alkaline Phosphatase 227 H Total Protein 5.0 L Albumin 2.4 L 08/05/24 11:34 WBC RBC Hgb Hct MCV MCH MCHC RDW Plt Count MPV Immature Gran % (Auto) Neut % (Auto) Lymph % (Auto) [place] % (Auto) Eos % (Auto) Baso % (Auto) Lymph # (Auto) [place] # (Auto) Eos # (Auto) Baso # (Auto) Abs Immat Gran (auto) Absolute Neuts (auto) Absolute Nucleated RBC Nucleated RBC % % Immature Plt Fraction Sodium Potassium Chloride Carbon Dioxide Anion Gap BUN Creatinine Estim Creat Clear Calc Estimated GFR Glucose POC Capillary Glucose 149 H Calcium Total Bilirubin AST ALT Alkaline Phosphatase Total Protein Albumin Quality VTE Prophylaxis VTE prophylaxis: mechanical ordered
[2024-08-05 17:47] LABS: Glucose Point of Care 127 mg/dl (65-105)
[2024-08-05] MEDS: LORATADINE 10 MG TABLET PO (20:36)
[2024-08-05 20:49] VITALS: BP 138/60; PULSE 88; RESP 16; TEMP 36.4; O2SAT 99
--- NOTE | 2024-08-05 22:20 | PC.NURSE ---
Pt reports need to have BM. Attempted to use bedpan r/t dayshift reports of pt not being cooperative with weight bearing status to RLE. Pt was not able and requested to go to bedside commode. Pt assisted to BSC with multiple verbal cues to not place weight on RLE. Pt stood up on one leg but when pivoting pt began bearing weight despite reminders not to. When getting up pt was reminded again and continued to shuffle feet, placing minimal weight on RLE
[2024-08-05 23:36] LABS: Glucose Point of Care 184 mg/dl (65-105)
[2024-08-06 05:31] VITALS: BP 120/55; PULSE 69; RESP 16; TEMP 36.2; O2SAT 98
[2024-08-06 05:40] LABS: Glucose Point of Care 128 mg/dl (65-105)
[2024-08-06 06:50] LABS: Basophils Percent Auto 0.8 % (0.2-1.2); Eosinophils Absolute Auto 0.1 K/mm3 (0-0.3); Eosinophils Percent Auto 2.4 % (0-4.4); Hematocrit 28.4 % (42.0-52.0); Hemoglobin 9.4 g/dL (14.0-18.0); Immature Granulocyte Absolute 0.05 K/mm3 (0.00-0.031); Immature Granulocyte Percent A 1.4 % (0-0.5); Immature Platelet Fraction Pct 6.6 % (0.9-11.2); Lymphocytes Absolute Auto 0.69 K/mm3 (0.9-3.2); Lymphocytes Percent Auto 18.6 % (18.3-44.2); Mean Corpuscular HGB Conc 33.1 g/dl (32-36); Mean Corpuscular Hemoglobin 32.4 pg (26-34); Mean Corpuscular Volume 97.9 fl (80-100); Mean Platelet Volume 11.1 fl (7.4-10.4); Monocytes Absolute Auto 0.8 K/mm3 (0.1-0.6); Monocytes Percent Auto 21.6 % (2.6-8.5); Neutrophils Percent Auto 55.2 % (45.5-73.1); Platelet Count Result 98 k/mm3 (150-375); Red Cell Distribution Width 16.1 % (11.5-14.5); White Blood Count 3.7 K/mm3 (4.5-10.0)
[2024-08-06 06:57] LABS: Alanine Aminotransferase 24 U/L (6-50); Albumin Level 2.4 g/dL (3.5-5.1); Alkaline Phosphatase 233 U/L (38-126); Anion Gap 4 mmol/L (4-12); Aspartate Amino Transferase 68 U/L (17-59); Bilirubin,Total 3.1 mg/dL (0.2-1.3); Blood Urea Nitrogen 10 mg/dL (9-20); Calcium 8.1 mg/dL (8.4-10.2); Carbon Dioxide 30 mmol/L (22-30); Chloride 95 mmol/L (98-107); Estimated CRCL calculation 90 ml/min; Estimated Glomerular Filt Rate > 60; Glucose 114 mg/dL (65-110); Potassium 3.8 mmol/L (3.4-5.0); Sodium 129 mmol/L (137-145)
--- NOTE | 2024-08-06 07:25 | PC.NURSE ---
RN assumed care and pt has no IV access
--- NOTE | 2024-08-06 07:33 | P.PNOP_ITS ---
Progress Note: A&P Assessment and Plan (1) Trimalleolar fracture of right ankle: Qualifiers: Encounter type: initial encounter Fracture type: closed Qualified Code(s): S82.851A - Displaced trimalleolar fracture of right lower leg, initial encounter for closed fracture Code(s): S82.851A - Displaced trimalleolar fracture of right lower leg, initial encounter for closed fracture Status: Acute Assessment and Plan: Patient is now postop day 5. After open reduction internal fixation of right trimalleolar ankle fracture. He was moved to [facility], which has a camera, 2 nights ago as he has been moving around in the bed so much that his legs were becoming trapped between arm rails. This has been a consistent activity since his admission. On exam today he would is easy to arouse and when asked he said he is doing all right. His speech is a bit slurred. His face is symmetric. He shows no signs of shaking or being jittery. He is confused. He thought he was at home. Patient is at risk for developing delirium tremens but has not thus far. The Rodolfo wrap around his splint is becoming a little bit disheveled and I have reinforced it with tape to keep it organized as he is sliding around in bed a great deal. Hopefully he is not putting weight on the heel to maneuver in bed . When he is deemed stable for discharge from the hospitalist he is going to go to rehab facility as he will require assistance for all transfers or he will put weight on the ankle and will have loss of fixation which would be a disastrous complication. I would like to see him in the office in approximately 1/2-2 weeks for wound inspection and new x-rays. Subjective Subjective Date/Time Seen: 08/06/24 07:33 Objective Data Vital Signs Vital Signs: Vital Signs - 24 hr 08/05/24 14:00 08/05/24 08:00 08/05/24 20:49 Temperature 36.5 C 36.4 C L Pulse Rate 87 88 Respiratory Rate 18 16 Blood Pressure 125/45 L 138/60 Pulse Oximetry 98 99 Oxygen Delivery Room Air 08/06/24 05:31 Temperature 36.2 C L Pulse Rate 69 Respiratory Rate 16 Blood Pressure 120/55 L Pulse Oximetry 98 Oxygen Delivery Intake/Output Intake/Output: Intake & Output 08/03/24 08/04/24 08/05/24/12/24 23:59 23:59 23:59 23:59 Intake Total 0 1176.7 1360.3 360 Output Total 472 752 7748 Balance -350 976.7 -1239.7 360 Meds/Results Medications: Active Medications Generic Name Dose Route Start Last Admin Trade Name Freq PRN Reason Stop Dose Admin Albuterol 2 puff 07/31/24 08:07 Albuterol Sulfate (*Sp) Aerosol 1 Puff INHALATION Q4H PRN SOB/Wheezing Apixaban 2.5 mg 08/04/24 21:00 08/05/24 20:36 Apixaban 2.5 Mg Tablet PO 09/15/24 20:59 2.5 mg Q12HR THA Administration Cefdinir 300 mg 08/02/24 09:00 08/05/24 20:36 Cefdinir 300 Mg Capsule PO 08/08/24 21:01 300 mg Q12HR THA Administration Famotidine 20 mg 08/01/24 21:00 08/05/24 20:36 Famotidine 20 Mg Tablet PO 20 mg Q12HR THA Administration Finasteride 5 mg 07/31/24 09:00 08/05/24 08:37 Finasteride 5 Mg Tablet PO 5 mg DAILY THA Administration Furosemide 40 mg 08/02/24 09:00 08/05/24 08:37 Furosemide 40 Mg Tablet PO 40 mg DAILY THA Administration Lactulose 6.67 gm 07/31/24 09:00 08/05/24 08:47 Lactulose 20 Gm/30 Ml Udc PO 6.67 gm DAILY THA Administration Loratadine 10 mg 07/31/24 21:00 08/05/24 20:36 Loratadine 10 Mg Tablet PO 10 mg HS THA Administration Lorazepam 2 mg 08/02/24 14:07 08/02/24 14:15 Lorazepam Inj (*Crx) 2 Mg/Ml Vial IV PUSH 2 mg Q4H PRN Administration CIWA 8-15 Magnesium Oxide 400 mg 08/02/24 12:00 08/05/24 13:00 Magnesium Oxide 400 Mg Tablet PO 400 mg DAILY@1200 THA Administration Morphine Sulfate 2 mg 08/01/24 14:37 Morphine Sulfate (*Crx) 2 Mg/Ml Inj IV PUSH Q2H PRN Breakthrough Pain Rated 4-6 or NPO Naloxone HCl 0.1 mg 08/01/24 14:37 Naloxone Hcl 0.4 Mg/Ml Vial IV PUSH Q2M PRN Opiate Reversal Ondansetron HCl 4 mg 08/01/24 14:37 Ondansetron Inj 4 Mg/2 Ml Vial IV PUSH Q4H PRN Nausea And Vomiting Oxycodone HCl 2.5 mg 08/01/24 14:37 Oxycodone Hcl (*Crx) 2.5 Mg Tab Ir PO Q4H PRN Pain Rated 4-6 Polyethylene Glycol 17 gm 08/02/24 09:00 08/05/24 08:38 Polyethylene Glycol 3350 17 Gm Powd.Pack PO 17 gm QAM THA Administration Saccharomyces Boulardii 250 mg 08/04/24 13:00 08/05/24 17:00 Saccharomyces Boulardii 250 Mg Capsule PO 250 mg TID THA Administration Senna/Docusate Sodium 2 tab 08/01/24 17:00 08/05/24 19:21 Senna/Docusate Sodium Tablet PO Not Given BID THA Senna/Docusate Sodium 1 tab 08/02/24 21:00 08/05/24 20:39 Senna/Docusate Sodium Tablet PO Not Given HS THA Sertraline HCl 50 mg 07/31/24 09:00 08/05/24 08:37 Sertraline Hcl 50 Mg Tablet PO 50 mg DAILY THA Administration Spironolactone 100 mg 07/31/24 09:00 08/05/24 08:37 Spironolactone 50 Mg Tablet PO 100 mg DAILY THA Administration Thiamine HCl 100 mg 08/03/24 09:00 08/05/24 08:47 Thiamine Hcl 200 Mg/2 Ml Vial IV PUSH 100 mg DAILY THA Administration Radiology Results: ITS Impressions Ankle X-Ray 07/30/24 20:25 IMPRESSION: Improved alignment post reduction, as detailed. Chest X-Ray 07/30/24 20:27 IMPRESSION: No focal infiltrate or effusion. Ankle CT 07/30/24 23:52 IMPRESSION: Trimalleolar fracture of the right ankle, as detailed above. Intraoperative X-Ray 08/01/24 14:04 IMPRESSION: 1. Trimalleolar ankle fracture status post open reduction internal fixation. Labs Labs: Laboratory Results - last 24 hr 08/05/24 08/05/24 08/05/24 11:34 17:44 23:32 Sodium Potassium Chloride Carbon Dioxide Anion Gap BUN Creatinine Estim Creat Clear Calc Estimated GFR Glucose POC Capillary Glucose 149 H 127 H 184 H Calcium Total Bilirubin AST ALT Alkaline Phosphatase Total Protein Albumin 08/06/24 08/06/24 05:37 05:48 Sodium 129 L Potassium 3.8 Chloride 95 L Carbon Dioxide 30 Anion Gap 4 BUN 10 Creatinine 0.60 L Estim Creat Clear Calc 90 Estimated GFR > 60 Glucose 114 H POC Capillary Glucose 128 H Calcium 8.1 L Total Bilirubin 3.1 H AST 68 H ALT 24 Alkaline Phosphatase 233 H Total Protein 6.0 L Albumin 2.4 L
[2024-08-06] MEDS: FUROSEMIDE 40 MG TABLET PO (09:45)
[2024-08-06] MEDS: SENNA/DOCUSATE SODIUM TABLET 2 TAB PO (09:45)
[2024-08-06] MEDS: LACTULOSE 20 GM/30 ML UDC 6.67 GM PO (09:46)
[2024-08-06] MEDS: FINASTERIDE 5 MG TABLET PO (09:50)
[2024-08-06] MEDS: SACCHAROMYCES BOULARDII 250 MG CAPSULE PO ×2 (09:50→14:15)
[2024-08-06] MEDS: CEFDINIR 300 MG CAPSULE PO (09:50)
[2024-08-06] MEDS: SERTRALINE HCL 50 MG TABLET PO (09:50)
[2024-08-06] MEDS: SPIRONOLACTONE 50 MG TABLET 100 MG PO (09:51)
[2024-08-06] MEDS: FAMOTIDINE 20 MG TABLET PO (09:51)
[2024-08-06] MEDS: APIXABAN 2.5 MG TABLET PO (09:51)
[2024-08-06 11:46] LABS: Glucose Point of Care 163 mg/dl (65-105)
[2024-08-06 13:58] VITALS: BP 132/55; PULSE 77; RESP 16; TEMP 35.7; O2SAT 98
--- NOTE | 2024-08-06 13:58 | P.DS_ITS ---
DS: Admitting Diagnosis Discharge Date 08/06/24 DS: Summary Time Spent with Patient Time attestation: Total time spent providing and/or coordinating discharge services: DS: Data Data Completed and Pending Labs on day of discharge: Labs from last 24 hours 08/06/24 08/06/24 08/06/24 11:42 05:48 05:37 WBC 3.7 L RBC 2.90 L Hgb 9.4 L Hct 28.4 L MCV 97.9 MCH 32.4 MCHC 33.1 RDW 16.1 H Plt Count 98 L MPV 11.1 H Immature Gran % (Auto) 1.4 H Neut % (Auto) 55.2 Lymph % (Auto) 18.6 [place] % (Auto) 21.6 H Eos % (Auto) 2.4 Baso % (Auto) 0.8 Lymph # (Auto) 0.69 L [place] # (Auto) 0.8 H Eos # (Auto) 0.1 Baso # (Auto) 0.0 Abs Immat Gran (auto) 0.05 H Absolute Neuts (auto) 2.0 Absolute Nucleated RBC 0.000 Nucleated RBC % 0.0 % Immature Plt Fraction 6.6 Sodium 129 L Potassium 3.8 Chloride 95 L Carbon Dioxide 30 Anion Gap 4 BUN 10 Creatinine 0.60 L Estim Creat Clear Calc 90 Estimated GFR > 60 Glucose 114 H POC Capillary Glucose 163 H 128 H Calcium 8.1 L Total Bilirubin 3.1 H AST 68 H ALT 24 Alkaline Phosphatase 233 H Total Protein 6.0 L Albumin 2.4 L 08/05/24 08/05/24 23:32 17:44 WBC RBC Hgb Hct MCV MCH MCHC RDW Plt Count MPV Immature Gran % (Auto) Neut % (Auto) Lymph % (Auto) [place] % (Auto) Eos % (Auto) Baso % (Auto) Lymph # (Auto) [place] # (Auto) Eos # (Auto) Baso # (Auto) Abs Immat Gran (auto) Absolute Neuts (auto) Absolute Nucleated RBC Nucleated RBC % % Immature Plt Fraction Sodium Potassium Chloride Carbon Dioxide Anion Gap BUN Creatinine Estim Creat Clear Calc Estimated GFR Glucose POC Capillary Glucose 184 H 127 H Calcium Total Bilirubin AST ALT Alkaline Phosphatase Total Protein Albumin Discharge Plan Discharge Attending physician on discharge: Palomo Fay Consulting providers: Romeo Ortega; Alina Nieto Discharging Clinician: [place] Patient Disposition: SNF Activity: as tolerated Diet: as tolerated Discharge Instructions: Strict nonweightbearing right leg Elevate the right leg on 2 or 3 pillows under his knee and calf on the right whenever in bed. Limit time in the chair to 1 hour at a time. Physical therapy to work on transfers nonweightbearing right leg and if strong enough he can hop short distances with a walker strict nonweightbearing right leg. Okay to do quad sets and straight leg raises. CBC on 08/19/2024, 09/08/2024 and 09/22/2024. Call MD if hemoglobin less than 9 or platelets less than 89,000. Call Dr. Ortega office at [phone] to schedule follow-up appointment in 2 weeks. Discontinue Cefdinir after p.m. dose on 08/10/2024 Eliquis 2.5 mg q.12 hours for a total of 6 weeks after surgery for prophylaxis against DVT. Patient Instructions: Apixaban (By mouth), Pain Management (DC) Patient Language: Occitan Stand Alone Forms: General Discharge Information Follow-up/Referrals: Romeo Ortega MD [Physician] - 2 Weeks Discharge Medications: New oxycodone 5 mg tablet 2.5 mg PO Q4H PRN (Reason: pain) Qty: 20 0RF polyethylene glycol 3350 [Miralax] 17 gram Powder In Packet 17 g PO QAM Qty: 30 0RF sennosides-docusate sodium [Senokot-S] 8.6-50 mg Tablet 2 tab-cap PO BID Qty: 120 0RF cefdinir 300 mg Capsule 300 mg PO Q12HR Qty: 16 0RF Eliquis 2.5 mg Tablet 2.5 mg PO Q12HR Qty: 82 0RF Continued cetirizine [Zyrtec] 10 mg Tablet 10 mg PO HS albuterol sulfate 90 mcg/actuation HFA aerosol inhaler 2 puff INHALATION PRN PRN (Reason: SOB/Wheezing) sertraline 50 mg tablet 50 mg PO DAILY potassium chloride 20 mEq tablet extended release 40 meq PO DAILY spironolactone 100 mg tablet 100 mg PO DAILY furosemide 20 mg tablet 40 mg PO DAILY finasteride 5 mg Tablet 5 mg PO DAILY lactulose 10 gram/15 mL solution 30 ml PO DAILY magnesium oxide 400 mg magnesium Tablet 400 mg PO DAILY Date of admission: 08/01/24 14:03 Primary Care Provider: RaghavJulio César Admitting Provider: Sidney Patel V. Attending physician on admission: [place] Condition: Improved
[2024-08-06] MEDS: MAGNESIUM OXIDE 400 MG TABLET PO (14:15)
== END 2024-08-06 17:50 | DRG 493 ==
LOC: ANHED 19:15 → ANH3MEDSUR 21:36
PROVIDERS: Nurse Practitioner Gerontology; Orthopaedic Surgery; Physician Assistant Surgical; Admitting Provider Internal Medicine; Emergency Provider Emergency Medicine; PCP Internal Medicine; Visit Provider Nurse Practitioner Acute Care
PROC: 0QSG04Z Reposition Right Tibia with Internal Fixation Device, Open Approach (ICD-10-PCS; principal; 2024-08-01 11:30)
DX: S82.851A Displaced trimalleolar fracture of right lower leg, initial encounter for closed fracture (principal); E87.1 Hypo-osmolality and hyponatremia; E78.5 Hyperlipidemia, unspecified; I10 Essential (primary) hypertension; I73.9 Peripheral vascular disease, unspecified; K70.30 Alcoholic cirrhosis of liver without ascites; D64.9 Anemia, unspecified; E87.6 Hypokalemia; J44.9 Chronic obstructive pulmonary disease, unspecified; E11.9 Type 2 diabetes mellitus without complications; F32.A Depression, unspecified; D69.59 Other secondary thrombocytopenia; X58.XXXA Exposure to other specified factors, initial encounter; F17.220 Nicotine dependence, chewing tobacco, uncomplicated
CPT/HCPCS: 27810; 36415; 71045; 73600; 73700; 80048; 80053; 82077; 82140; 82306; 82948; 83540; 83550; 83735; 84100; 85025; 85027; 85055; 85610; 85730; 93005; 96374; 96375; 96376; 97110; 97162; 97166; 97530; 97535; 99199; 99285; A9270; C1713; C1769; G0378; J0690; J1100; J1171; J1644; J2003; J2060; J2270; J2405; J2704; J3010; J3370; J3411; J7030; J7120